=== PATIENT | female | born 1940 | race Caucasian/White ===

== ENCOUNTER 2021-12-23 20:49 | Observation (INO) | payer MEDICARE, MEDICAID, SELFPAY ==
[2021-12-23] VITALS (29 sets, daily range): BP systolic 123–161; BP diastolic 63–92; PULSE 75–163; RESP 13–27; TEMP 36.7; O2SAT 91–98
--- NOTE | 2021-12-23 21:08 | XRR_ITS ---
PROCEDURE INFORMATION: Exam: XR Chest Exam date and time: 12/23/2021 9:15 PM Age: 81 years old Clinical indication: Patient HX: Hypertensive with tachycardia on monitor. ; Additional info: Cp TECHNIQUE: Imaging protocol: Radiologic exam of the chest. Views: 1 view. COMPARISON: No relevant prior studies available. FINDINGS: Lungs: See Heart/Mediastinum finding. Pleural spaces: Unremarkable. No pleural effusion. No pneumothorax. Heart/Mediastinum: Mild cardiomegaly and pulmonary vascular congestion. Bones/joints: Unremarkable. XR/XR chest 1V portable [id number] IMPRESSION: Mild cardiomegaly and pulmonary vascular congestion.
--- NOTE | 2021-12-23 21:08 | ECG_ITS ---
[facility] Test Date: 2021-12-23 Pat Name: Rosie Bowles Department: Room: Gender: Female Community Relations Coordinator: : 1940 Requested By: Diana Montoya Order Number: [id number] Wanda MD: Charly Gallegos M.D. Measurements Intervals Raven Rate: 112 P: TN: QRS: -82 QRSD: 99 T: 32 QT: 322 QTc: 441 Interpretive Statements ATRIAL FIBRILLATION WITH RAPID VENTRICULAR RESPONSE INCOMPLETE RIGHT BUNDLE BRANCH BLOCK [90+ ms QRS DURATION, TERMINAL R IN V1/V2, 40+ ms S IN I/aVL/V4/V5/V6] LEFT ANTERIOR FASCICULAR BLOCK [QRS AXIS <= -45, QR IN I, RS IN II] ANTEROSEPTAL MYOCARDIAL INFARCTION , OF INDETERMINATE AGE [40+ ms Q WAVE IN V1-V4] No previous ECG available for comparison Electronically Signed On 12-24-2021 21:41:56 CDT by Charly Gallegos M.D. [id number]
--- NOTE | 2021-12-23 21:12 | ED_ITS ---
HPI - Arrhythmia/Palpitations General: Chief Complaint: Arrhythmia/Palpitations Stated Complaint: BP issues Time Seen by Provider: 12/23/21 21:07 Source: patient Mode of arrival: ambulatory Limitations: no limitations History of Present Illness: 81-year-old female who states that she does take her blood pressure and its been running high she states she is also had some slight palpitations she denies any chest pain denies any shortness of breath. Patient here is in A. fib with RVR with heart rate into the 150s she denies any history of A. fib does not take any medicine denies any worsening proving factors. Associated symptoms: Deny nausea or vomiting Review of Systems Const: Denies: fever(s), chills, body aches or change in appetite Eyes: Denies: blurry vision or eye discomfort ENMT: Denies: throat pain or dental pain Card: Reports: palpitations Resp: Denies: dyspnea GI: Denies: abdominal pain, nausea, vomiting or diarrhea : Denies: dysuria Musc: Denies: neck pain or back pain Skin/Breast: Denies: rash Neuro: Denies: headache(s) Psych: Denies: depression Jose Maria/Lymph: Denies: easy bruising All/Imm: Denies: urticaria PFSH ED PFSH: Medical History (Updated 12/23/21 @ 22:09 by Diana Montoya MD) No pertinent past medical history Social History (Updated 12/23/21 @ 21:13 by Diana Montoya MD) Substance/Drug Use: never Physical Exam Const: COMMON NORMALS: patient oriented x3 HENMT: COMMON NORMALS: normocephalic and atraumatic HEAD & SCALP: normocephalic and atraumatic Eye: COMMON NORMALS: Equal, round and reactive pupils present and EOMs intact bilaterally PUPIL: Yes Equal, round and reactive pupils present Neck/C-Spine: COMMON NORMALS: full ROM and supple Chest: COMMONS NORMALS: normal inspection of the chest and normal palpation of entire chest wall Resp: COMMON NORMALS: normal respiratory effort, No retractions, No use of accessory muscles and clear to auscultation bilaterally AUSCULTATION: clear to auscultation bilaterally Cardio: COMMON NORMALS: No murmurs present (Cardio) RATE: tachycardic RHYTHM: abnormal rhythm irregularly irregular GI: COMMON NORMALS: Normal to inspection, nondistended, normoactive bowel sounds present, Soft to palpation, non-tender and no masses PALPATION: Yes Soft to palpation Extremity: COMMON NORMALS: normal to inspection and full ROM Neuro: COMMON NORMALS: patient oriented x3, moves all extremities and no focal motor deficits Psych: COMMON NORMALS: mental status grossly normal, Normal thought process present and cooperative THOUGHT PROCESS: Normal thought process present Skin: COMMON NORMALS: no rashes or lesions noted and no wounds GENERAL SKIN EXAM: no rashes or lesions noted Course Vital Signs: Vital signs: Vital Signs Temperature 98.1 F 12/23/21 20:54 Pulse Rate 83 12/23/21 22:16 Respiratory Rate 19 H 12/23/21 22:16 Blood Pressure 159/70 12/23/21 22:16 Pulse Oximetry 95 12/23/21 22:16 Oxygen Delivery Me thod 12/23/21 20:54 MDM - Arrhythmia/Palpitations Medical Decision Making Patient presents here with A. fib with RVR heart rate here is much improved on a Cardizem drip currently in the 80s she has no history of A. fib blood work here is normal will admit at this time I spoke to hospitalist. Lab Data : 12/23/21 21:34 12/23/21 21:34 Radiology Impressions Chest X-Ray 12/23/21 21:08 IMPRESSION: Mild cardiomegaly and pulmonary vascular congestion. Laboratory Results WBC 12.1 10^3/uL (4.0-10.0) H 12/23/21 21:34 RBC 5.11 10^6/uL (4.1-5.3) 12/23/21 21:34 Hgb 14.1 g/dL (11.5-15.3) 12/23/21 21:34 Hct 43.0 % (37.0-47.0) 12/23/21 21:34 MCV 84.1 fl (81-99) 12/23/21 21:34 MCH 27.6 pg (28.0-34.0) L 12/23/21 21:34 MCHC 32.8 g/dL (30.0-36.0) 12/23/21 21:34 RDW 13.3 % (12.1-15.1) 12/23/21 21:34 Plt Count 183 10^3/cmm (130-400) 12/23/21 21:34 MPV 11.0 fL (7.4-10.4) H 12/23/21 21:34 Neut % (Auto) 65.1 % 12/23/21 21:34 Lymph % (Auto) 22.3 % 12/23/21 21:34 Dickson % (Auto) 8.5 % 12/23/21 21:34 Eos % (Auto) 2.9 % 12/23/21 21:34 Baso % (Auto) 0.7 % 12/23/21 21:34 Neut # (Auto) 7.90 10^3/uL (1.8-7.7) H 12/23/21 21:34 Lymph # (Auto) 2.7 10^3/uL (0.8-4.8) 12/23/21 21:34 Dickson # (Auto) 1.0 10^3/uL (0.2-0.9) H 12/23/21 21:34 Eos # (Auto) 0.4 10^3/uL (0.0-0.8) 12/23/21 21:34 Baso # (Auto) 0.1 10^3/uL (0.0-0.1) 12/23/21 21:34 Nucleated RBC % (auto) 0 % 12/23/21 21:34 Nucleated RBCs # 0.0 /100WBC 12/23/21 21:34 PT 14.10 SECONDS (12.1-14.9) 12/23/21 21:34 INR 1.06 (0.8-1.2) 12/23/21 21:34 Sodium 135 mmol/L (136-145) L 12/23/21 21:34 Potassium 4.3 mmol/L (3.5-5.1) 12/23/21 21:34 Chloride 99 mmol/L (98-107) 12/23/21 21:34 Carbon Dioxide 23 mmol/L (22-29) 12/23/21 21:34 Anion Gap 17.3 (5-19) 12/23/21 21:34 BUN 18 mg/dL (8-23) 12/23/21 21:34 Creatinine 0.8 mg/dL (0.5-0.9) 12/23/21 21:34 GFR Calculation Not Reportable 12/23/21 21:34 Glucose 184 mg/dL (65-115) H 12/23/21 21:34 Calculated Osmolality 287 mOsm/kg (285-295) 12/23/21 21:34 Calcium 9.5 mg/dL (8.5-10.5) 12/23/21 21:34 Total Bilirubin 0.5 mg/dL (0.15-1.2) 12/23/21 21:34 AST 21 U/L (0-32) 12/23/21 21:34 ALT 17 U/L (0-33) 12/23/21 21:34 Alkaline Phosphatase 64 U/L (35-105) 12/23/21 21:34 Troponin T Baseline 23 ng/L (0-10) H 12/23/21 21:34 Total Protein 7.3 g/dL (6.6-8.7) 12/23/21 21:34 Albumin 4.5 g/dL (3.5-5.2) 12/23/21 21:34 Globulin 2.8 g/dL (1.3-4.6) 12/23/21 21:34 EKG Data EKG 1: I personally reviewed and interpreted this EKG as follows: EKG interpretation date: 12/23/21 EKG interpretation time: 20:58 Interpretation: afib rvr hr [address] or t wave anormalities qrs 86 qtc 359 Other EKG comments: Chest X-Ray 12/23/21 21:08 IMPRESSION: Mild cardiomegaly and pulmonary vascular congestion. Critical Care Time Critical Care Time: Critical Care Time: Yes Total Critical Care Time: 40 Attestation: The high probability of a clinically significant, sudden or life threatening deterioration of the patient's cv system(s) required my full and direct attention, intervention and personal management. The critical care time is as shown. This time is in addition to time spent performing any reported procedures but includes the following: [x] Data and vital sign review and interpretation [x] Patient assessment, examination and intervention [x] Documentation [x] Medication orders and management Discharge Plan Discharge Patient Disposition: Admitted As Inpatient Clinical Impression: Atrial fibrillation with RVR Coding Level of Care Code ED Insurance Follow Up Representative for Chg Fwd Exam Comprehensive
[2021-12-23] MEDS: dilTIAZem 5 mg/mL SDV 5 mL 15 MG IV (21:36)
[2021-12-23 21:40] LABS: Basophils # 0.1 10^3/uL (0.0-0.1); Basophils % 0.7 %; Eosinophils # 0.4 10^3/uL (0.0-0.8); Eosinophils % 2.9 %; Hemoglobin 14.1 g/dL (11.5-15.3); Lymphocytes # 2.7 10^3/uL (0.8-4.8); Lymphocytes % 22.3 %; Mean Corpuscular HGB Conc 32.8 g/dL (30.0-36.0); Mean Corpuscular Hemoglobin 27.6 pg (28.0-34.0); Mean Corpuscular Volume 84.1 fl (81-99); Monocytes % 8.5 %; Neutrophils % 65.1 %; Nucleated Red Blood Cells % 0 %; Platelet Count 183 10^3/cmm (130-400); Red Blood Count 5.11 10^6/uL (4.1-5.3); Red Cell Distribution Width 13.3 % (12.1-15.1); White Blood Count 12.1 10^3/uL (4.0-10.0)
[2021-12-23 21:56] LABS: INR 1.06 (0.8-1.2)
--- NOTE | 2021-12-23 21:58 | ECG_ITS ---
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 Measurements Intervals [place] Rate: 83 P: AR: QRS: -73 QRSD: 109 T: 28 QT: 398 QTc: 470 Interpretive Statements ATRIAL FIBRILLATION INCOMPLETE RIGHT BUNDLE BRANCH BLOCK [90+ ms QRS DURATION, TERMINAL R IN V1/V2, 40+ ms S IN I/aVL/V4/V5/V6] LEFT ANTERIOR FASCICULAR BLOCK [QRS AXIS <= -45, QR IN I, RS IN II] POSSIBLE ANTERIOR MYOCARDIAL INFARCTION , PROBABLY OLD [30 ms Q WAVE IN V3/V4, OR R < 0.2 mV IN V4] Compared to ECG 12/23/2021 21:28:28 No significant changes Electronically Signed On 12-24-2021 21:52:23 CDT by Charly Gallegos M.D. [id number]
[2021-12-23 22:04] LABS: Troponin(5th) Baseline 23 ng/L (0-10)
[2021-12-23 22:07] LABS: Alanine Aminotransferase 17 U/L (0-33); Albumin Level 4.5 g/dL (3.5-5.2); Alkaline Phosphatase 64 U/L (35-105); Anion Gap 17.3 (5-19); Aspartate Amino Transferase 21 U/L (0-32); Blood Urea Nitrogen 18 mg/dL (8-23); Calcium 9.5 mg/dL (8.5-10.5); Carbon Dioxide 23 mmol/L (22-29); Chloride 99 mmol/L (98-107); Globulin 2.8 g/dL (1.3-4.6); Glucose 184 mg/dL (65-115); Osmolality Calculated 287 mOsm/kg (285-295); Potassium 4.3 mmol/L (3.5-5.1); Sodium 135 mmol/L (136-145); Total Bilirubin 0.5 mg/dL (0.15-1.2); Total Protein 7.3 g/dL (6.6-8.7)
--- NOTE | 2021-12-23 23:31 | USCV_ITS ---
Rosie Bowles Age: 81 Gender: F : 1940 Exam Date: 12/23/2021 23:55 Ordering Phys: Edda Antonio MD Technologist: UMBERTO [place] [facility] [place]ication: first ever episode of atrial fibrillation. No history of cardiac intervention per patient. BP: 159 / 70 HR: 73 Rhythm: Atrial fibrillation Technical Quality: Adequate MEASUREMENTS (Male / Female) Normal Values 2D ECHO LV Diastolic Diameter PLAX 3.3 cm 4.2 - 5.9 / 3.9 - 5.3 cm LV Systolic Diameter PLAX 2.2 cm IVS Diastolic Thickness 1.5 cm 0.6 - 1.0 / 0.6 - 0.9 cm IVS Systolic Thickness 1.7 cm LVPW Diastolic Thickness 1.5 cm 0.6 - 1.0 / 0.6 - 0.9 cm LVPW Systolic Thickness 2.0 cm LVOT Diameter 1.9 cm LV Ejection Fraction 2D Teich 64.8 % LV Ejection Fraction MOD 2C 62.6 % LV Ejection Fraction 2C AL 65.9 % LA Diameter 4.7 cm LA Width 4.8 cm LA Height 6.1 cm RA Width 4.2 cm RA Height 5.6 cm Aorta at Sinotubular Diameter 2.9 cm IVC Diameter 1.6 cm M-MODE Aortic Annulus Diameter 3.0 cm LA Ao Ratio MM 1.6 MV E Point Septal Separation 0.4 cm DOPPLER AV Peak Velocity 254.0 cm/s LVOT Peak Velocity 63.0 cm/s AV Area Cont Eq vti 0.8 cm squared AV Area Cont Eq pk 0.7 cm squared MV Peak Velocity 160.0 cm/s MV Area PHT 2.9 cm squared MV E' Velocity 81.0 cm/s Mitral E to MV E' Ratio 12.4 Mitral E to LV E' Lateral Ratio 15.0 Mitral E to LV E' Septal Ratio 10.6 TR Peak Velocity 249.5 cm/s TR Peak Gradient 24.9 mmHg TV Peak E Velocity 51.0 cm/s Right Atrial Pressure 10.0 mmHg Pulmonary Artery Systolic Pressu 34.9 mmHg PV Peak Velocity 89.0 cm/s FINDINGS Left Ventricle Normal left ventricular size and systolic function, EF 64 %. Mild left ventricular hypertrophy. No regional wall motion abnormalities. Grade III/IV diastolic dysfunction (restrictive filling pattern), severely elevated filling pressures. Right Ventricle The right ventricle is normal in size and function. Right Atrium Mildly increased right atrial size. Left Atrium Moderately increased left atrial size. Mitral Valve Moderate mitral annular calcification. Moderate mitral valve regurgitation. Aortic Valve Moderate aortic valve calcification. Trace aortic valve regurgitation. Severe low gradient aortic valve stenosis with a peak velocity of 2.54 m/s. The peak gradient was 26 mmHg with a mean gradient of 14 mmHg. The valve area was calculated to be 0.7 cm squared with an index of 0.39 Tricuspid Valve Mild tricuspid valve regurgitation. Pulmonic Valve Trace pulmonary valve regurgitation. Pericardium Normal pericardium without effusion. Aorta Normal ascending aorta dimension. IVC Normal inferior vena cava. CONCLUSIONS Normal left ventricular size and systolic function, EF 64 %. Mild left ventricular hypertrophy. No regional wall motion abnormalities. Grade III/IV diastolic dysfunction (restrictive filling pattern), severely elevated filling pressures. Severe low gradient aortic valve stenosis with a peak velocity of 2.54 m/s. The peak gradient was 26 mmHg with a mean gradient of 14 mmHg. The valve area was calculated to be 0.7 cm squared with an index of 0.39. Biatrial enlargement L>R. Moderate mitral annular calcification with a moderate mitral regurgitation Mild tricuspid valve regurgitation. Estimated pulmonary artery peak systolic pressure was 35 mmHg There is no pericardial effusion. There are no intracardiac masses. No similar previous studies are available for comparison Dr Charly Gallegos MD [facility] (Electronically Signed) Final Date: 24 December 2021 13:55 S
[2021-12-24] VITALS (49 sets, daily range): BP systolic 82–183; BP diastolic 60–117; PULSE 46–89; RESP 12–24; TEMP 36.6–36.7; O2SAT 92–97; BMI 35.5
[2021-12-24 00:06] LABS: Troponin 5 2HR 19.34 ng/L (0-10)
[2021-12-24 00:11] LABS: Troponin 5 2HR Delta -3.66 ABS# (0-10)
--- NOTE | 2021-12-24 00:31 | P.HP_ITS ---
Providers/Chief Complaint Admitting Physician: Edda Antonio MD Primary Care Provider: Ashish Kaur MD Chief Complaint: BP issues History of Present Illness Rosie Bowles is a 81 year old female without known medical comorbidities who presented to the emergency room last night with chief complaints of palpitations. She denied any complains of chest pain dyspnea. She is not quite sure what triggered the palpitations, states that she was just going to bed when this started. Denies any dizziness or loss of consciousness. Upon presentation to the ER she was found to have A. fib with RVR with heart rate in the 150s. She denies any past history of atrial fibrillation. States that her heart rate usually runs around 75 bpm. She states that she has elevated blood pressure on occasions, up to 1 50-1 60 systolic, however does not do very well with medications and therefore avoids taking any. Her blood pressure upon arrival here was 178/94. She received 15 mg IV push of Cardizem and was started on Cardizem infusion in the ER. Review of systems negative for any recent fever chills URI symptoms, cough, abdominal pain nausea or vomiting. She otherwise appears to be in her usual state of health. Review of Systems 2 General: Reports: 10 or more systems reviewed and unremarkable except in HPI and below Const: Denies: fever(s), chills or body aches Eyes: Denies: change in vision, blurry vision or photophobia ENMT: Reports: hoarseness; Denies: throat pain, enlarged tonsils, odynophagia or nasal congestion Card: Denies: chest pain, palpitations, irregular heart rhythm, edema, swelling of feet/ankles, lightheadedness, pre-syncope, dyspnea on exertion or orthopnea Resp: Denies: dyspnea, productive cough, non-productive cough, wheezing, stridor, pain on inspiration, change in phlegm color, hemoptysis or chest congestion GI: Denies: abdominal pain, nausea, vomiting, hematemesis, coffee ground emesis, dysphagia, heartburn, diarrhea, constipation, GI cramping, change in stool character, hematochezia or melena : Denies: flank pain, difficulty voiding, dysuria, urinary frequency, urinary urgency, urinary hesitancy or hematuria Musc: Denies: neck pain, back pain, extremity pain, joint swelling, joint warmth or deformity Neuro: Denies: headache(s), numbness in extremities, weakness in extremities, sensory changes, difficulty walking, frequent falls, dizziness, vertigo, behavioral changes, Slurred speech present or seizure-like activity Psych: Denies: anxiety, depression, suicidal ideation or homicidal ideation Endo: Denies: polyuria, polydipsia, tired all the time, cold intolerance or hot flashes Jose Maria/Lymph: Denies: easy bruising or easy bleeding Medications/Allergies Allergies Allergy/AdvReac Type Severity Reaction Status Date / Time Sulfa (Sulfonamide Allergy ALGY-Difficulty Verified 12/24/21 02:03 Antibiotics) Breathing PFSH Acute PFSH: Medical History No pertinent past medical history Social History Substance/Drug Use: never Vitals/I&O/Wt Last Vital Signs Temp 98.1 F 12/23/21 20:54 Pulse 83 12/23/21 22:16 Resp 19 H 12/23/21 22:16 BP 159/70 12/23/21 22:16 Pulse Ox 95 12/23/21 22:16 O2 Del Method 12/23/21 20:54 Weight last 48 hrs Weight 90.718 kg Physical Exam Narrative: General: No acute distress, AO x3 HEENT: PERRLA, pupils bilaterally equal and reactive, pallors not present Chest: Normal vesicular breath sounds, no added sounds, equal good air entry bilaterally CVS: S1-S2 regular, no murmurs, no tachycardia, no gallops, no rubs Abdomen: Soft, nontender, no organomegaly, bowel sounds present Neuro: No focal deficits, no facial deformity, AO x3, power 5/5 in all limbs Data : 12/24/21 03:40 12/24/21 03:40 Other Labs: Radiology Impressions Chest X-Ray 12/23/21 21:08 IMPRESSION: Mild cardiomegaly and pulmonary vascular congestion. Laboratory Results WBC 11.2 10^3/uL (4.0-10.0) H 12/24/21 03:40 RBC 4.94 10^6/uL (4.1-5.3) 12/24/21 03:40 Hgb 13.6 g/dL (11.5-15.3) 12/24/21 03:40 Hct 41.9 % (37.0-47.0) 12/24/21 03:40 MCV 84.8 fl (81-99) 12/24/21 03:40 MCH 27.5 pg (28.0-34.0) L 12/24/21 03:40 MCHC 32.5 g/dL (30.0-36.0) 12/24/21 03:40 RDW 13.5 % (12.1-15.1) 12/24/21 03:40 Plt Count 184 10^3/cmm (130-400) 12/24/21 03:40 MPV 11.9 fL (7.4-10.4) H 12/24/21 03:40 Neut % (Auto) 59.7 % 12/24/21 03:40 Lymph % (Auto) 28.2 % 12/24/21 03:40 Borden % (Auto) 8.4 % 12/24/21 03:40 Eos % (Auto) 2.8 % 12/24/21 03:40 Baso % (Auto) 0.5 % 12/24/21 03:40 Neut # (Auto) 6.67 10^3/uL (1.8-7.7) 12/24/21 03:40 Lymph # (Auto) 3.2 10^3/uL (0.8-4.8) 12/24/21 03:40 Borden # (Auto) 0.9 10^3/uL (0.2-0.9) 12/24/21 03:40 Eos # (Auto) 0.3 10^3/uL (0.0-0.8) 12/24/21 03:40 Baso # (Auto) 0.1 10^3/uL (0.0-0.1) 12/24/21 03:40 Nucleated RBC % (auto) 0 % 12/24/21 03:40 Nucleated RBCs # 0.0 /100WBC 12/24/21 03:40 PT 14.10 SECONDS (12.1-14.9) 12/23/21 21:34 INR 1.06 (0.8-1.2) 12/23/21 21:34 Sodium 137 mmol/L (136-145) 12/24/21 03:40 Potassium 4.1 mmol/L (3.5-5.1) 12/24/21 03:40 Chloride 101 mmol/L (98-107) 12/24/21 03:40 Carbon Dioxide 23 mmol/L (22-29) 12/24/21 03:40 Anion Gap 17.1 (5-19) 12/24/21 03:40 BUN 16 mg/dL (8-23) 12/24/21 03:40 Creatinine 0.8 mg/dL (0.5-0.9) 12/24/21 03:40 GFR Calculation Not Reportable 12/24/21 03:40 Glucose 137 mg/dL (65-115) H 12/24/21 03:40 Calculated Osmolality 287 mOsm/kg (285-295) 12/24/21 03:40 Calcium 9.3 mg/dL (8.5-10.5) 12/24/21 03:40 Total Bilirubin 0.6 mg/dL (0.15-1.2) 12/24/21 03:40 AST 20 U/L (0-32) 12/24/21 03:40 ALT 15 U/L (0-33) 12/24/21 03:40 Alkaline Phosphatase 54 U/L (35-105) 12/24/21 03:40 Troponin T Baseline 23 ng/L (0-10) H 12/23/21 21:34 Troponin T 120 Minute 19.34 ng/L (0-10) H 12/23/21 23:34 Delta Troponin T -3.66 ABS# (0-10) L 12/23/21 23:34 Troponin T Hi Sens 6Hr 19.70 ng/L (0-10) H 12/24/21 03:40 Troponin T Hi Sens 6Hr Delta -3.30 ng/L (0-12) L 12/24/21 03:40 Total Protein 7.0 g/dL (6.6-8.7) 12/24/21 03:40 Albumin 4.2 g/dL (3.5-5.2) 12/24/21 03:40 Globulin 2.8 g/dL (1.3-4.6) 12/24/21 03:40 A&P Assessment and plan (1) Atrial fibrillation with RVR: Patient presenting today with new onset A. fib with RVR. Chief complaints with that of palpitations, denies any chest pain dyspnea loss of consciousness or syncope. She was received 15 mg of IV push of Cardizem and was started on IV infusion. Thereafter is being admitted to CSU for further observation. Her CHADS2 Vasc2 is at 3, however she is not currently interested in starting any new medications including anticoagulation. Also noted to have elevated blood pressure 178/94 upon arrival, states that usu ally her blood pressure at home runs between 1 40-1 50 systolic. Troponin series with mildly elevated troponins at baseline 23, 2-hour trending down at 19, negative delta of 3 at 2 hours. Will check TSH Check echocardiogram Attestations Medical Necessity Statement*: Admit to CSU, anticipate less than 2 midnight admission for evaluation and management of new onset A. fib. Coding Level of Care Code Acute [employer] Executive for Cristhian Pressley Diagnoses Atrial fibrillation with RVR I48.91
[2021-12-24] MEDS: dilTIAZem 30 mg Tablet PO (02:14)
--- NOTE | 2021-12-24 02:21 | PC.NURSE ---
Communication w/ Dr. Antonio, high blood pressure 180's/10's. Provider to put in new orders.
--- NOTE | 2021-12-24 03:16 | ECG_ITS ---
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 Measurements Intervals [place] Rate: 68 P: PA: QRS: -61 QRSD: 105 T: -26 QT: 417 QTc: 446 Interpretive Statements ATRIAL FIBRILLATION LOW QRS VOLTAGE IN PRECORDIAL LEADS [QRS DEFLECTION < 1.0 mV IN CHEST LEADS] LEFT ANTERIOR FASCICULAR BLOCK [QRS AXIS <= -45, QR IN I, RS IN II] POSSIBLE ANTERIOR MYOCARDIAL INFARCTION , PROBABLY OLD [30 ms Q WAVE IN V3/V4, OR R < 0.2 mV IN V4] Compared to ECG 12/23/2021 21:58:33 Low QRS voltage now present Incomplete right bundle-branch block no longer present Myocardial infarct finding still present Electronically Signed On 12-24-2021 21:52:50 CDT by Charly Gallegos M.D. [id number]
--- NOTE | 2021-12-24 04:30 | PC.NURSE ---
HR A.fib 57, contacted Dr. Antonio, discontinue nontitratable Cardizem 10 mg/hr and change to titratable Cardizem drip, Cardizem turned off.
[2021-12-24 05:15] LABS: Basophils # 0.1 10^3/uL (0.0-0.1); Basophils % 0.5 %; Eosinophils # 0.3 10^3/uL (0.0-0.8); Eosinophils % 2.8 %; Hematocrit 41.9 % (37.0-47.0); Hemoglobin 13.6 g/dL (11.5-15.3); Lymphocytes # 3.2 10^3/uL (0.8-4.8); Lymphocytes % 28.2 %; Mean Corpuscular HGB Conc 32.5 g/dL (30.0-36.0); Mean Corpuscular Hemoglobin 27.5 pg (28.0-34.0); Mean Corpuscular Volume 84.8 fl (81-99); Mean Platelet Volume 11.9 fL (7.4-10.4); Monocytes # 0.9 10^3/uL (0.2-0.9); Monocytes % 8.4 %; Neutrophils # 6.67 10^3/uL (1.8-7.7); Neutrophils % 59.7 %; Nucleated Red Blood Cells % 0 %; Platelet Count 184 10^3/cmm (130-400); Red Blood Count 4.94 10^6/uL (4.1-5.3); Red Cell Distribution Width 13.5 % (12.1-15.1); White Blood Count 11.2 10^3/uL (4.0-10.0)
[2021-12-24 05:31] LABS: Alanine Aminotransferase 15 U/L (0-33); Albumin Level 4.2 g/dL (3.5-5.2); Alkaline Phosphatase 54 U/L (35-105); Anion Gap 17.1 (5-19); Aspartate Amino Transferase 20 U/L (0-32); Blood Urea Nitrogen 16 mg/dL (8-23); Calcium 9.3 mg/dL (8.5-10.5); Carbon Dioxide 23 mmol/L (22-29); Chloride 101 mmol/L (98-107); Globulin 2.8 g/dL (1.3-4.6); Glucose 137 mg/dL (65-115); Osmolality Calculated 287 mOsm/kg (285-295); Potassium 4.1 mmol/L (3.5-5.1); Sodium 137 mmol/L (136-145); Total Bilirubin 0.6 mg/dL (0.15-1.2)
--- NOTE | 2021-12-24 05:53 | PC.NURSE ---
PEARL Arias held, HR 56 A.fib, Dr. Marisela cisneros.
--- NOTE | 2021-12-24 06:29 | ECG_ITS ---
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 Measurements Intervals [place] Rate: 49 P: DC: QRS: -67 QRSD: 106 T: -60 QT: 479 QTc: 434 Interpretive Statements ATRIAL FLUTTER/TACHYCARDIA WITH SLOW VENTRICULAR RESPONSE LOW QRS VOLTAGE IN PRECORDIAL LEADS [QRS DEFLECTION < 1.0 mV IN CHEST LEADS] INCOMPLETE RIGHT BUNDLE BRANCH BLOCK [90+ ms QRS DURATION, TERMINAL R IN V1/V2, 40+ ms S IN I/aVL/V4/V5/V6] LEFT ANTERIOR FASCICULAR BLOCK [QRS AXIS <= -45, QR IN I, RS IN II] POSSIBLE ANTERIOR MYOCARDIAL INFARCTION , OF INDETERMINATE AGE [30 ms Q WAVE IN V3/V4, OR R < 0.2 mV IN V4] Compared to ECG 12/24/2021 03:16:46 Incomplete right bundle-branch block now present Atrial fibrillation no longer present Myocardial infarct finding still present Electronically Signed On 12-24-2021 21:53:05 CDT by Charly Gallegos M.D. [id number] f
--- NOTE | 2021-12-24 06:36 | PC.NURSE ---
HR 49, obtained EKG per Dr. Antonio.
[2021-12-24 07:40] LABS: Thyroid Stimulating Hormone 2.37 uIU/mL (0.27-4.20)
--- NOTE | 2021-12-24 08:34 | PC.PHAR ---
pt states she takes no rx medications-pt states she doesnt go to the dr and hasnt been prescribed medications pt states just takes otc meds
--- NOTE | 2021-12-24 08:48 | PC.NURSE ---
Dr. Chilel at bedside, observed HTN and afib, HCP to put in med orders, goal to D/C tomorrow
--- NOTE | 2021-12-24 09:36 | PC.CHAP ---
Pastoral Care Encounter/Spiritual Assessment Type of Contact [] Declined vat cleaner visit [] Patient/Family/Request visit [] Outpatient visit [] Follow-up visit [] Physician referral [] Code/Alert [x] Routine visit [] Staff referral [] Actively dying [] Patient sleeping [] Family support [] [] Out of room [] Palliative care [] [] Receiving care in room [] Pre-surgical visit [] Trauma [] Long length of stay [x] ICU visit [] Other: delightful lady and family... Relational/Emotional Strength [] Patient feels connected with others/family/visitors/staff [] Distress [] Loneliness/isolation [] Abandonment Spirituality of Patient [] Person of Nanette [] Attends Yazidism of their Nanette [] Believes in Prayer [] Reads Bible or Bahai materials [] There are Spiritual issues to be addressed Postal Mail Carrier Interventions [x] Prayer [] Active listening [] Non-anxious presence [] Spiritual/emotional support [] Crisis/trauma care [] Spiritual counseling [] Bereavement support [] Provided bereavement packet [] Provided Bible/devotional materials [] Provided toy/stuffed animal, coloring book to patient or family member [] Provided Communion [] Anointing/[place] [] Salvation [x] Completed spiritual assessment [] Other: Impact on Illness or Injury [] Angry [] Fearful [] Anxious [] Often cries [] Exhaustion [] Unable to work [] Unable to attend yarsani [] Unable to walk/stand [] Unable to read [] Unable to drive [] Unable to eat/drink [] Unable to sleep [] Unable to be with family [] Patient intubated [] Other: Summary Time spent with patient
--- NOTE | 2021-12-24 10:27 | PM.MISC ---
Miscellaneous Note Note: Heart rate dipped down to low 50s with Cardizem At the time of my evaluation heart rate was in 70s blood pressure was high I asked nurse to take blood pressure in both arms and document Patient stated that he does not take any medications at home, she lives alone and she was asking to go home EKG does not show any signs of malignant arrhythmia, significant high degree block other than incomplete right bundle branch Awake and alert Euvolemic Currently on room air Very pleasant cooperative No active chest pain S1, S2 rate able Atrial flutter rhythm on telemetry Abdomen soft Assessment and plan New onset atrial flutter [id number] is high she would require Eliquis at the time of discharge No recurrent falls at home She lives alone Side effects were explained I will put her on low-dose metoprolol and watch her heart rate and blood pressure In case of hypertension she would require lisinopril and chlorthalidone Full code Cardiac diet DVT prophylaxis covered with Eliquis
[2021-12-24] MEDS: lisinopril 20 mg Tablet PO (14:12)
[2021-12-24] MEDS: chlorthalidone 25 mg Tablet 12.5 MG PO (17:28)
[2021-12-24] MEDS: metoprolol tartrate 25 mg Tablet 12.5 MG PO (20:07)
[2021-12-24] MEDS: apixaban 5 mg Tablet PO (20:07)
[2021-12-25] VITALS (11 sets, daily range): BP systolic 99–153; BP diastolic 64–99; PULSE 52–103; RESP 15–19; TEMP 36.5–36.7; O2SAT 92–96
[2021-12-25 04:29] LABS: Anion Gap 14.3 (5-19); Blood Urea Nitrogen 18 mg/dL (8-23); Calcium 9.6 mg/dL (8.5-10.5); Carbon Dioxide 24 mmol/L (22-29); Chloride 101 mmol/L (98-107); Glucose 118 mg/dL (65-115); Magnesium 2.1 mg/dL (1.7-2.3); Osmolality Calculated 283 mOsm/kg (285-295); Potassium 4.3 mmol/L (3.5-5.1); Sodium 135 mmol/L (136-145)
--- NOTE | 2021-12-25 08:03 | P.DS_ITS ---
Discharge Providers Date of Admission: 12/23/21 22:30 Date of Discharge: December 25, 2021 Attending Provider at Admission: Edda Antonio MD Attending Provider at Discharge: Erika Chilel MD Primary Care Provider: Ashish Kaur MD Diagnoses at Discharge Discharge Diagnosis (1) Atrial fibrillation with RVR: Status: Acute Reason for Visit Reason for Visit: BP issues Hospital Course Hospital Course 81-year-old female who was admitted to the hospital for management of new onset A. fib RVR her heart rate dipped down to low 50s with use of Cardizem her [id number] is 3 she was put on anticoagulating agent at the time of discharge Eliquis 5 mg twice a day, she was not hypoxic at all during her hospitalization, she was put on low-dose metoprolol once her heart rate was staying upper 90s, no recurrence of bradycardia slow ventricular response noted after initial episode, no signs of significant second-degree or third-degree block. Patient remained hypertensive I have added lisinopril and chlorthalidone for her hypertension. Patient was not taking any medication at home. I have asked her to maintain a blood pressure log and follow-up with her PCP. She lives alone and is very motivated to return home. No signs of syncope or dizziness when she ambulated in her room. Physical Exam Narrative: Awake and alert Nonfocal neuro exam A. fib heart rate in 90s Blood pressure 150s/99 Pleasant and cooperative EOMI, PERRLA Abdomen soft Discharge Data Studies Completed and Pending Completed Studies During Hospitalization Category Date Time Status XR chest 1V portable [id number] Stat Exams 12/23/21 21:08 Completed CV. echo complete* [id number] Stat Ultrasound 12/23/21 23:31 Completed Radiology Impressions Chest X-Ray 12/23/21 21:08 IMPRESSION: Mild cardiomegaly and pulmonary vascular congestion. Laboratory Results WBC 11.2 10^3/uL (4.0-10.0) H 12/24/21 03:40 RBC 4.94 10^6/uL (4.1-5.3) 12/24/21 03:40 Hgb 13.6 g/dL (11.5-15.3) 12/24/21 03:40 Hct 41.9 % (37.0-47.0) 12/24/21 03:40 MCV 84.8 fl (81-99) 12/24/21 03:40 MCH 27.5 pg (28.0-34.0) L 12/24/21 03:40 MCHC 32.5 g/dL (30.0-36.0) 12/24/21 03:40 RDW 13.5 % (12.1-15.1) 12/24/21 03:40 Plt Count 184 10^3/cmm (130-400) 12/24/21 03:40 MPV 11.9 fL (7.4-10.4) H 12/24/21 03:40 Neut % (Auto) 59.7 % 12/24/21 03:40 Lymph % (Auto) 28.2 % 12/24/21 03:40 [place] % (Auto) 8.4 % 12/24/21 03:40 Eos % (Auto) 2.8 % 12/24/21 03:40 Baso % (Auto) 0.5 % 12/24/21 03:40 Neut # (Auto) 6.67 10^3/uL (1.8-7.7) 12/24/21 03:40 Lymph # (Auto) 3.2 10^3/uL (0.8-4.8) 12/24/21 03:40 [place] # (Auto) 0.9 10^3/uL (0.2-0.9) 12/24/21 03:40 Eos # (Auto) 0.3 10^3/uL (0.0-0.8) 12/24/21 03:40 Baso # (Auto) 0.1 10^3/uL (0.0-0.1) 12/24/21 03:40 Nucleated RBC % (auto) 0 % 12/24/21 03:40 Nucleated RBCs # 0.0 /100WBC 12/24/21 03:40 PT 14.10 SECONDS (12.1-14.9) 12/23/21 21:34 INR 1.06 (0.8-1.2) 12/23/21 21:34 Sodium 135 mmol/L (136-145) L 12/25/21 03:51 Potassium 4.3 mmol/L (3.5-5.1) 12/25/21 03:51 Chloride 101 mmol/L (98-107) 12/25/21 03:51 Carbon Dioxide 24 mmol/L (22-29) 12/25/21 03:51 Anion Gap 14.3 (5-19) 12/25/21 03:51 BUN 18 mg/dL (8-23) 12/25/21 03:51 Creatinine 0.8 mg/dL (0.5-0.9) 12/25/21 03:51 GFR Calculation Not Reportable 12/25/21 03:51 Glucose 118 mg/dL (65-115) H 12/25/21 03:51 Calculated Osmolality 283 mOsm/kg (285-295) L 12/25/21 03:51 Calcium 9.6 mg/dL (8.5-10.5) 12/25/21 03:51 Magnesium 2.1 mg/dL (1.7-2.3) 12/25/21 03:51 Total Bilirubin 0.6 mg/dL (0.15-1.2) 12/24/21 03:40 AST 20 U/L (0-32) 12/24/21 03:40 ALT 15 U/L (0-33) 12/24/21 03:40 Alkaline Phosphatase 54 U/L (35-105) 12/24/21 03:40 Troponin T Baseline 23 ng/L (0-10) H 12/23/21 21:34 Troponin T 120 Minute 19.34 ng/L (0-10) H 12/23/21 23:34 Delta Troponin T -3.66 ABS# (0-10) L 12/23/21 23:34 Troponin T Hi Sens 6Hr 19.70 ng/L (0-10) H 12/24/21 03:40 Troponin T Hi Sens 6Hr Delta -3.30 ng/L (0-12) L 12/24/21 03:40 Total Protein 7.0 g/dL (6.6-8.7) 12/24/21 03:40 Albumin 4.2 g/dL (3.5-5.2) 12/24/21 03:40 Globulin 2.8 g/dL (1.3-4.6) 12/24/21 03:40 TSH 2.37 uIU/mL (0.27-4.20) 12/24/21 03:40 Vitals Last Vital Signs Temp 97.7 F 12/25/21 03:30 Pulse 69 11/02/22 06:00 Resp 16 12/25/21 04:00 BP 147/91 12/25/21 04:00 Pulse Ox 93 12/25/21 04:00 O2 Del Method 12/25/21 04:00 Discharge Plan Discharge Patient Disposition: Home Condition: Stable Prescriptions: New Eliquis 5 mg Tablet 5 mg PO BID@0900,2100 Qty: 120 3RF lisinopril 20 mg tablet 20 mg PO DAILY Qty: 60 2RF chlorthalidone 25 mg tablet 25 mg PO DAILY Qty: 60 2RF metoprolol tartrate 25 mg tablet 25 mg PO BID Qty: 60 2RF Discontinued naproxen sodium [Aleve] 220 mg Tablet 220 - 660 mg PO Q12H PRN (Reason: Pain) Discharge Orders: Discharge Order (Routine); Ordered 12/25/21 Ordered By: Erika Chilel Referrals: Ashish Kaur MD [Primary Care Provider] - 4-7 days Discharge Diet: Cardiac Discharge Activity: Increase activity as tolerated Patient Instructions: Metoprolol (By mouth), Lisinopril (By mouth), Apixaban (By mouth) (Eliquis), A-fib (Atrial Fibrillation) (DC), Heart Healthy Diet (DC), Opioid Safety, Pain Management, Stroke Stoplight Discharge Attestations Time Spent in Discharge Care*: less than 30 min Quality Metrics Clinical Quality Measures [ No reported AMI, CVA or VTE this stay] Coding Level of Care Code Acute Chg FW DC note Diagnoses Atrial fibrillation with RVR I48.91
[2021-12-25] MEDS: apixaban 5 mg Tablet PO (08:10)
[2021-12-25] MEDS: pantoprazole DR 40 mg Tablet PO (08:10)
[2021-12-25] MEDS: chlorthalidone 25 mg Tablet 12.5 MG PO (08:11)
[2021-12-25] MEDS: metoprolol tartrate 25 mg Tablet 12.5 MG PO (08:11)
[2021-12-25] MEDS: lisinopril 20 mg Tablet PO (09:04)
--- NOTE | 2021-12-25 10:37 | PC.CHAP ---
Pastoral Care Encounter/Spiritual Assessment Type of Contact [] Declined commercial credit reviewer visit [] Patient/Family/Request visit [] Outpatient visit [] Follow-up visit [] Physician referral [] Code/Alert [x] Routine visit [] Staff referral [] Actively dying [x] Patient sleeping [] Family support [] [] Out of room [] Palliative care [] [] Receiving care in room [] Pre-surgical visit [] Trauma [] Long length of stay [x] ICU visit [] Other: Relational/Emotional Strength [] Patient feels connected with others/family/visitors/staff [] Distress [] Loneliness/isolation [] Abandonment Spirituality of Patient [] Person of Nanette [] Attends Jainism of their [place] [] Believes in Prayer [] Reads Bible or Roman Catholic materials [] There are Spiritual issues to be addressed Actuarial Internship Interventions [x] Prayer [] Active listening [] Non-anxious presence [] Spiritual/emotional support [] Crisis/trauma care [] Spiritual counseling [] Bereavement support [] Provided bereavement packet [] Provided Bible/devotional materials [] Provided toy/stuffed animal, coloring book to patient or family member [] Provided Communion [] Anointing/[place] [] Salvation [x] Completed spiritual assessment [] Other: Impact on Illness or Injury [] Angry [] Fearful [] Anxious [] Often cries [] Exhaustion [] Unable to work [] Unable to attend judaism [] Unable to walk/stand [] Unable to read [] Unable to drive [] Unable to eat/drink [] Unable to sleep [] Unable to be with family [] Patient intubated [] Other: Summary Time spent with patient
--- NOTE | 2021-12-25 11:50 | PC.NURSE ---
All D/C instructions educated to patient and son at bedside, patient signed d/c form, out of facility at this time transported home by son
== END 2021-12-25 11:53 | disposition home or self-care (01) ==
LOC: ER 22:09 → ICU 12-24 01:09
PROVIDERS: Admitting Provider Student in an Organized Health Care Education/Training Program; Emergency Provider Emergency Medicine; PCP Family Medicine; Visit Provider Internal Medicine
DX: I48.91 Unspecified atrial fibrillation (principal); I45.10 Unspecified right bundle-branch block
CPT/HCPCS: 36415; 71045; 80048; 80053; 83735; 84443; 84484; 85025; 85610; 93005; 93306; 96365; 96366; 96375; 99291; G0378; J3490

== ENCOUNTER 2022-09-23 19:29 | Observation (INO) | payer MEDICARE, MEDICAID, SELFPAY ==
[2022-09-23] VITALS (8 sets, daily range): BP systolic 138–172; BP diastolic 74–97; PULSE 75–97; RESP 16–21; TEMP 36.9; O2SAT 92–96; BMI 34.5
[2022-09-23 20:31] LABS: Basophils # 0.1 10^3/uL (0.0-0.1); Eosinophils # 0.3 10^3/uL (0.0-0.8); Hematocrit 22.9 % (37.0-47.0); Hemoglobin 6.7 g/dL (11.5-15.3); Lymphocytes # 2.8 10^3/uL (0.8-4.8); Lymphocytes % 29.5 %; Mean Corpuscular HGB Conc 29.3 g/dL (30.0-36.0); Mean Corpuscular Hemoglobin 20.6 pg (28.0-34.0); Mean Corpuscular Volume 70.5 fl (81-99); Mean Platelet Volume 9.5 fL (7.4-10.4); Monocytes # 1.3 10^3/uL (0.2-0.9); Monocytes % 13.9 %; Neutrophils # 4.92 10^3/uL (1.8-7.7); Neutrophils % 52.1 %; Nucleated Red Blood Cells % 0.2 %; Platelet Count 353 10^3/cmm (130-400); Red Blood Count 3.25 10^6/uL (4.1-5.3); Red Cell Distribution Width 16.6 % (12.1-15.1); White Blood Count 9.4 10^3/uL (4.0-10.0)
[2022-09-23 20:43] LABS: INR 2.32 (0.8-1.2)
--- NOTE | 2022-09-23 20:51 | ED_ITS ---
HPI - GI Bleed General: Chief complaint: GI Bleed Stated complaint: Rectal Bleeding and A Fib Time Seen by Provider: 09/23/22 20:25 History of Present Illness: 82-year-old female presents to the emergency department chief complaint of having an episode of rectal bleeding prior to arrival patient is also endorsing some left-sided abdominal pain has been persistent over the last several weeks. Patient reports recent diagnosis of atrial fibrillation that she is currently taking Eliquis. Patient reports this 1 episode of a bloody stool while wiping patient reports generalized weakness and fatigue is also been ongoing for the last couple of weeks. The patient reports no other associated symptoms. Associated symptoms: Reports abdominal pain; Denies chills, fever(s), headache(s), malaise, nausea, rash or vomiting Review of Systems General: Reports: 10 or more systems reviewed and unremarkable except in HPI and below Const: Denies: fever(s), chills, fatigue or malaise Eyes: Denies: change in vision or blurry vision Card: Denies: chest pain or palpitations Resp: Denies: dyspnea or productive cough GI: Reports: abdominal pain and hematochezia; Denies: nausea or vomiting : Denies: flank pain Musc: Denies: extremity pain or extremity swelling Skin/Breast: Denies: rash or pruritus Neuro: Denies: headache(s) Psych: Denies: anxiety or depression [place]/Lymph: Denies: easy bleeding All/Imm: Denies: urticaria, throat swelling or facial swelling PFSH ED PFSH: Medical History Atrial fibrillation with RVR No pertinent past medical history Social History Substance/Drug Use: never Physical Exam Const: COMMON NORMALS: no acute distress, patient oriented x3 and healthy appearing HENMT: COMMON NORMALS: normocephalic and atraumatic HEAD & SCALP: normocephalic and atraumatic Eye: COMMON NORMALS: Equal, round and reactive pupils present and EOMs intact bilaterally PUPIL: Yes Equal, round and reactive pupils present Neck/C-Spine: COMMON NORMALS: full ROM, supple and no JVD Lymph: LYMPHATIC: no lymphadenopathy noted Chest: COMMONS NORMALS: normal inspection of the chest and normal palpation of entire chest wall Resp: COMMON NORMALS: normal respiratory effort, No retractions and clear to auscultation bilaterally EFFORT & INSPECTION: Yes able to speak in complete sentences and Yes symmetric chest movement AUSCULTATION: clear to auscultation bilaterally Cardio: COMMON NORMALS: no JVD, regular rate and regular rhythm RATE: regular rate RHYTHM: regular rhythm GI: COMMON NORMALS: Normal to inspection, nondistended, normoactive bowel sounds present and Soft to palpation; negative for non-tender (Moderate tenderness appreciated in left lateral abdomen) INSPECTION: Yes normal to inspection PALPATION: Yes Soft to palpation : COMMON NORMALS: Yes no CVA tenderness BLADDER/KIDNEY EXAM: Yes no CVA tenderness Back/Pelvis: COMMON NORMALS: no CVA tenderness Extremity: COMMON NORMALS: normal to inspection and full ROM Neuro: COMMON NORMALS: patient oriented x3, CN's II-XII intact bilaterally, moves all extremities and no focal motor deficits Psych: COMMON NORMALS: mental status grossly normal, Normal thought process present, cooperative and normal affect THOUGHT PROCESS: Normal thought process present Skin: COMMON NORMALS: no rashes or lesions noted GENERAL SKIN EXAM: no rashes or lesions noted Course Vital Signs: Vital signs: Vital Signs Temperature 98.4 F 09/23/22 19:45 Pulse Rate 97 09/23/22 19:45 Respiratory Rate 16 09/23/22 19:45 Blood Pressure 138/76 09/23/22 19:45 Pulse Oximetry 95 09/23/22 19:45 Oxygen Delivery Me thod Room Air 09/23/22 19:45 MDM - GI Bleed Medical Decision Making Due to the patient's symptoms and condition IV was established basic lab work and imaging will be obtained we will continue to follow patient's hemoglobin was found to be low at 6.7. We will be obtaining CT imaging abdomen pelvis with IV contrast to further rule out diverticular Disease. We will continue to follow anticipate need for admission. The patient's CT imaging revealed some divert iculosis as well as some enteritis no obvious diverticulitis patient's hemoglobin found to be at 6.7 discussed patient's case with the general surgery on-call which will be placed on for consultation as well as Dr. Flood hospitalist that is granted acceptance observation status in which patient will be started on some blood products. The patient remained in stable condition at this time. Patient and family were updated that are agreeable to admission/observation at this time. Lab Data 09/23/22 20:15 09/23/22 20:15 Radiology Impressions Chest X-Ray 09/23/22 21:19 IMPRESSION: 1. Right lower lobe atelectasis 2. Cardiomegaly. Abdomen/Pelvis CT 09/23/22 21:26 IMPRESSION: 1. Negative for contrast extravasation seen to indicate a source of rectal bleeding as in provided clinical indication. 2. Prominent fluid in the small bowel without dilation may reflect an enteritis. 3. Diverticulosis without diverticulitis 4. Cardiomegaly. 5. Moderate to large bilateral pleural effusions. 6. Bilateral dependent atelectasis versus infiltrate. 7. Cholelithiasis. 8. Mild anasarca. Laboratory Results WBC 9.4 10^3/uL (4.0-10.0) 09/23/22 20:15 RBC 3.25 10^6/uL (4.1-5.3) L 09/23/22 20:15 Hgb 6.7 g/dL (11.5-15.3) L 09/23/22 20:15 Hct 22.9 % (37.0-47.0) L 09/23/22 20:15 MCV 70.5 fl (81-99) L 09/23/22 20:15 MCH 20.6 pg (28.0-34.0) L 09/23/22 20:15 MCHC 29.3 g/dL (30.0-36.0) L 09/23/22 20:15 RDW 16.6 % (12.1-15.1) H 09/23/22 20:15 Plt Count 353 10^3/cmm (130-400) 09/23/22 20:15 MPV 9.5 fL (7.4-10.4) 09/23/22 20:15 Neut % (Auto) 52.1 % 09/23/22 20:15 Lymph % (Auto) 29.5 % 09/23/22 20:15 [place] % (Auto) 13.9 % 09/23/22 20:15 Eos % (Auto) 3.0 % 09/23/22 20:15 Baso % (Auto) 1.0 % 09/23/22 20:15 Neut # (Auto) 4.92 10^3/uL (1.8-7.7) 09/23/22 20:15 Lymph # (Auto) 2.8 10^3/uL (0.8-4.8) 09/23/22 20:15 [place] # (Auto) 1.3 10^3/uL (0.2-0.9) H 09/23/22 20:15 Eos # (Auto) 0.3 10^3/uL (0.0-0.8) 09/23/22 20:15 Baso # (Auto) 0.1 10^3/uL (0.0-0.1) 09/23/22 20:15 Nucleated RBC % (auto) 0.2 % 09/23/22 20:15 Nucleated RBCs # 0.0 /100WBC 09/23/22 20:15 PT 26.40 SECONDS (12.1-14.9) H 09/23/22 20:15 INR 2.32 (0.8-1.2) H 09/23/22 20:15 Sodium 136 mmol/L (136-145) 09/23/22 20:15 Potassium 4.3 mmol/L (3.5-5.1) 09/23/22 20:15 Chloride 102 mmol/L (98-107) 09/23/22 20:15 Carbon Dioxide 20 mmol/L (22-29) L 09/23/22 20:15 Anion Gap 18.3 (5-19) 09/23/22 20:15 BUN 17 mg/dL (8-23) 09/23/22 20:15 Creatinine 1.0 mg/dL (0.5-0.9) H 09/23/22 20:15 GFR Calculation Not Reportable 09/23/22 20:15 Glucose 164 mg/dL (65-115) H 09/23/22 20:15 Calculated Osmolality 287 mOsm/kg (285-295) 09/23/22 20:15 Calcium 9.0 mg/dL (8.5-10.5) 09/23/22 20:15 Total Bilirubin 0.5 mg/dL (0.15-1.2) 09/23/22 20:15 AST 19 U/L (0-32) 09/23/22 20:15 ALT < 5 U/L (0-33) 09/23/22 20:15 Alkaline Phosphatase 58 U/L (35-105) 09/23/22 20:15 Total Protein 7.0 g/dL (6.6-8.7) 09/23/22 20:15 Albumin 4.3 g/dL (3.5-5.2) 09/23/22 20:15 Globulin 2.7 g/dL (1.3-4.6) 09/23/22 20:15 Urine Color Light yellow (Yellow) 09/23/22 22:34 Urine Appearance Clear (CLEAR) 09/23/22 22:34 Urine pH 6.5 (5-7) 09/23/22 22:34 Ur Specific [place] 1.005 (1.005-1.030) 09/23/22 22:34 Urine Protein Neg (Negative) 09/23/22 22:34 Urine Glucose (UA) Norm (Normal) 09/23/22 22:34 Urine Ketones Negative (Negative) 09/23/22 22:34 Urine Blood Neg (Negative) 09/23/22 22:34 Urine Nitrate Negative (Negative) 09/23/22 22:34 Urine Bilirubin Neg (Negative) 09/23/22 22:34 Urine Urobilinogen Norm mg/dL (Negative) 09/23/22 22:34 Ur Leukocyte Esterase 2+ (Negative) H 09/23/22 22:34 Blood Type O Negative 09/23/22 21:30 Rho(D) Type Negative 09/23/22 21:30 Antibody Screen Negative 09/23/22 21:30 Discharge Plan Discharge Patient Disposition: Placed in Observation Admit Provider: Juwan Flood Clinical Impression: Lower gastrointestinal hemorrhage, Diverticulosis, Enteritis, Anemia Coding Level of Care Code ED [employer] for Cristhian Pressley
[2022-09-23 20:54] LABS: Alanine Aminotransferase < 5 U/L (0-33); Albumin Level 4.3 g/dL (3.5-5.2); Alkaline Phosphatase 58 U/L (35-105); Anion Gap 18.3 (5-19); Aspartate Amino Transferase 19 U/L (0-32); Blood Urea Nitrogen 17 mg/dL (8-23); Carbon Dioxide 20 mmol/L (22-29); Chloride 102 mmol/L (98-107); Globulin 2.7 g/dL (1.3-4.6); Glucose 164 mg/dL (65-115); Osmolality Calculated 287 mOsm/kg (285-295); Potassium 4.3 mmol/L (3.5-5.1); Sodium 136 mmol/L (136-145); Total Bilirubin 0.5 mg/dL (0.15-1.2)
--- NOTE | 2022-09-23 21:19 | XRR_ITS ---
PROCEDURE INFORMATION: Exam: XR Chest Exam date and time: 09/23/2022 9:25 PM Age: 82 years old Clinical indication: Other: Weakness TECHNIQUE: Imaging protocol: Radiologic exam of the chest. Views: 1 view. COMPARISON: CR XR chest 1V portable [id number] 12/23/2021 9:15 PM FINDINGS: Lungs: Right lower lobe atelectasis Pleural spaces: Unremarkable. No pleural effusion. No pneumothorax. Heart/Mediastinum: Cardiomegaly. Bones/joints: Unremarkable. XR/XR chest 1V portable [id number] IMPRESSION: 1. Right lower lobe atelectasis 2. Cardiomegaly.
--- NOTE | 2022-09-23 21:26 | CTR_ITS ---
PROCEDURE INFORMATION: Exam: CT Abdomen And Pelvis With Contrast Exam date and time: 09/23/2022 9:42 PM Age: 82 years old Clinical indication: Abdominal pain; Generalized; Additional info: Abdominal pain with rectal bleeding TECHNIQUE: Imaging protocol: Computed tomography of the abdomen and pelvis with contrast. Radiation optimization: All CT scans at this facility use at least one of these dose optimization techniques: automated exposure control; mA and/or kV adjustment per patient size (includes targeted exams where dose is matched to clinical indication); or iterative reconstruction. Contrast material: OMNI 350; Contrast volume: 100 ml; Contrast route: INTRAVENOUS (IV); REPORTING DATA: Count of CT and Cardiac NM exams in prior 12 months: This patient has received 0 known CTs and 0 known cardiac nuclear medicine studies in the 12 months prior to the current study. COMPARISON: CR (CHEST, ) 09/23/2022 9:25 PM RADIATION DOSE METRICS: Total DLP (mGy-cm): 854 FINDINGS: Lungs: Bilateral dependent atelectasis versus infiltrate. Pleural spaces: Moderate to large bilateral pleural effusions. Heart: Cardiomegaly. Liver: Normal. No mass. Gallbladder and bile ducts: Cholelithiasis. Pancreas: Normal. No ductal dilation. Spleen: Normal. No splenomegaly. Adrenal glands: Normal. No mass. Kidneys and ureters: Normal. No hydronephrosis. Stomach and bowel: Prominent fluid in the small bowel without dilation may reflect an enteritis. Diverticulosis without diverticulitis Appendix: No evidence of appendicitis. Intraperitoneal space: Unremarkable. No free air. No significant fluid collection. Vasculature: Unremarkable. No abdominal aortic aneurysm. Lymph nodes: Unremarkable. No enlarged lymph nodes. Urinary bladder: Unremarkable as visualized. Reproductive: Unremarkable as visualized. Bones/joints: Unremarkable. No acute fracture. Soft tissues: Mild anasarca. CT/CT abdomen pelvis w con* [id number] IMPRESSION: 1. Negative for contrast extravasation seen to indicate a source of rectal bleeding as in provided clinical indication. 2. Prominent fluid in the small bowel without dilation may reflect an enteritis. 3. Diverticulosis without diverticulitis 4. Cardiomegaly. 5. Moderate to large bilateral pleural effusions. 6. Bilateral dependent atelectasis versus infiltrate. 7. Cholelithiasis. 8. Mild anasarca.
[2022-09-23] MEDS: iohexol 350 mg/mL 500 mL Btl (per mL) IV (21:43)
[2022-09-23] MEDS: sodium chloride 0.9% 500 ML IV (21:52)
[2022-09-23 23:08] LABS: Bilirubin Urine Neg (Negative); Blood Urine Neg (Negative); Glucose Urine UA Norm (Normal); Ketones Urine Negative (Negative); Nitrate Urine Negative (Negative); Protein Urine Neg (Negative); Specific Gravity, Urine 1.005 (1.005-1.030); Urine Appearance Clear (CLEAR); Urine Color Light yellow (Yellow); pH Urine 6.5 (5-7)
[2022-09-23 23:09] LABS: Add Urine Microscopic? YES; Bacteria Urine TRACE /hpf; Leukocyte Esterase Urine 2+ (Negative); RBC Urine 0-4 /hpf (0-2); Squamous Epithelial Cell Urine 0-4 /hpf (0-5); Urobilinogen Urine Norm (Negative)
[2022-09-23 23:10] LABS: Add Urine Culture? No
--- NOTE | 2022-09-23 23:13 | PM.HP ---
Providers/Chief Complaint Admitting Physician: Juwan Flood MD Primary Care Provider: Gavino Louis MD Chief Complaint: Rectal Bleeding and A Fib History of Present Illness Rosie Bowles is a 82 year old female with a past medical history significant for atrial fibrillation on apixaban, osteoarthritis, and hypertension who presents to the emergency department from home with rectal bleeding x1 day. She endorses associated symptoms of melena with black colored stool, dyspnea on exertion, and shortness of breath. Denies any tarry appearance. She endorses chronic hip pain for which she take Advil. She states she has been taking it fairly consistently lately. Denies prior history of GI bleeding. Denies prior EGD or colonoscopy. Denies prior colon cancer screening such as cologuard or other testing. She reports her brother had colon cancer. Patient denies any nausea, emesis, fevers or chills. Denies any other alleviating or aggravating factors. Review of Systems Narrative: A complete review of systems was obtained and found to be negative except for symptoms listed in HPI. Medications/Allergies Home Medications Medication Instructions Recorded Confirmed Last Taken Type amlodipine 5 mg tablet 5 mg PO DAILY #60 tabs 12/25/21 Unknown Rx apixaban 5 mg tablet (Eliquis) 5 mg PO BID@0900,2100 #120 tabs 12/25/21 Unknown Rx chlorthalidone 25 mg tablet 25 mg PO DAILY #60 tabs 12/25/21 Unknown Rx lisinopril 20 mg tablet 20 mg PO DAILY #60 tabs 12/25/21 Unknown Rx metoprolol tartrate 25 mg tablet 25 mg PO BID #60 tabs 12/25/21 Unknown Rx Allergies Allergy/AdvReac Type Severity Reaction Status Date / Time Sulfa (Sulfonamide Allergy ALGY-Difficulty Verified 09/23/22 19:45 Antibiotics) Breathing PFSH Acute PFSH: Medical History (Updated 09/24/22 @ 00:46 by Juwan Flood MD) Atrial fibrillation with RVR Hip pain Hypertension Family History (Updated 09/24/22 @ 00:47 by Juwan Flood MD) Brother Cancer Social History (Updated 09/24/22 @ 00:47 by Juwan Flood MD) Smoking and tobacco status: never smoked Alcohol intake: never Substance/Drug Use: never Vitals/I&O/Wt Last Vital Signs Temp 98.4 F 09/23/22 19:45 Pulse 97 09/23/22 19:45 Resp 16 09/23/22 19:45 BP 138/76 09/23/22 19:45 Pulse Ox 95 09/23/22 19:45 O2 Del Method Room Air 09/23/22 19:45 Weight last 48 hrs Weight 88.451 kg Physical Exam Const: COMMON NORMALS: alert GENERAL APPEARANCE: cooperative and well developed ORIENTATION/CONSCIOUSNESS: Yes awake HENMT: COMMON NORMALS: normocephalic, atraumatic and moist oral mucous membranes Eye: COMMON NORMALS: EOMs intact bilaterally and no scleral icterus Neck/C-Spine: COMMON NORMALS: supple and no JVD Chest: COMMONS NORMALS: normal inspection of the chest Resp: COMMON NORMALS: normal respiratory effort, No retractions and No use of accessory muscles Cardio: COMMON NORMALS: no JVD, S1 normal heart sound present, S2 normal heart sound present, No gallops present (Cardio) and No rub (Cardio) GI: COMMON NORMALS: Normal to inspection, nondistended, normoactive bowel sounds present, Soft to palpation and non-tender Extremity: COMMON NORMALS: normal to inspection Neuro: COMMON NORMALS: moves all extremities and no focal motor deficits Psych: COMMON NORMALS: mental status grossly normal, cooperative and normal affect Skin: COMMON NORMALS: no jaundice Data 09/23/22 20:15 09/23/22 20:15 A&P Assessment and plan (1) GI bleed: Admission HGB 6.7 Transfusing 2 pRBC Pantoprazole 80 mg IVP then 40 mg IV Q12H General surgery consulted by ED, appreciate reccs NPO pending GS evaluation Hold apixaban No NSAIDs IV fluids Trend hemoglobin (2) Anemia: Acute blood loss anemia secondary to GI bleed Transfusing and management as above (3) Atrial fibrillation: Continue home metoprolol for rate control Hold home apixaban due to GI bleed and anemia (4) Hip pain: Holding home Advil given GI bleed Tylenol as needed for now (5) Hypertension: Continue home metoprolol Hold other antihypertensives, continue to monitor BP and reassess need Plan DVT ppx: SCD Code: Full Attestations Medical Necessity Statement*: Patient presents with GI bleed with hospitalization not expected to cross two midnights. Coding Level of Care Code Acute Code for Chg Fwd Diagnoses GI bleed K92.2 Anemia D64.9 Atrial fibrillation I48.91 Hip pain M25.559 Hypertension I10
[2022-09-24] VITALS (20 sets, daily range): BP systolic 113–158; BP diastolic 60–104; PULSE 63–96; RESP 14–18; TEMP 36.5–36.8; O2SAT 91–95
--- NOTE | 2022-09-24 06:29 | PM.CONSULT ---
Providers/Reason For Consult Consulting Physician/Specialty*: General surgery Reason for Consult*: GI bleed Attending Physician: Juwan Flood MD Primary Care Provider: Gavino Louis MD History of Present Illness History of Present Illness Rosie Bowles is a 82 year old female who presents complaining of dark stools and bleeding per rectum. She also complained of mild abdominal tenderness on the left side of the abdomen. CAT scan done in the emergency department showed no evidence of active bleeding, but there is evidence of diverticular disease. I have been asked to evaluate her for possible endoluminal evaluation. Patient doing well upon my arrival, no acute complaints, has not had another bowel movement since transported to the floor. No nausea or vomiting, does not complain of abdominal pain. Review of Systems Narrative: A 10 point review of systems has been done and is negative otherwise noted in HPI Medications/Allergies Home Medications Medication Instructions Recorded Confirmed Last Taken Type amlodipine 5 mg tablet 5 mg PO DAILY #60 tabs 12/25/21 Unknown Rx apixaban 5 mg tablet (Eliquis) 5 mg PO BID@0900,2100 #120 tabs 12/25/21 Unknown Rx chlorthalidone 25 mg tablet 25 mg PO DAILY #60 tabs 12/25/21 Unknown Rx lisinopril 20 mg tablet 20 mg PO DAILY #60 tabs 12/25/21 Unknown Rx metoprolol tartrate 25 mg tablet 25 mg PO BID #60 tabs 12/25/21 Unknown Rx Allergies Allergy/AdvReac Type Severity Reaction Status Date / Time Sulfa (Sulfonamide Allergy ALGY-Difficulty Verified 09/23/22 19:45 Antibiotics) Breathing PFSH Acute PFSH: Medical History (Updated 09/24/22 @ 00:46 by Juwan Flood MD) Atrial fibrillation with RVR Hip pain Hypertension Family History (Updated 09/24/22 @ 00:47 by Juwan Flood MD) Brother Cancer Social History (Updated 09/24/22 @ 00:47 by Juwan Flood MD) Smoking and tobacco status: never smoked Alcohol intake: never Substance/Drug Use: never Vitals/I&O/Wt Last Vital Signs Temp 98.3 F 09/24/22 05:34 Pulse 73 09/24/22 05:34 Resp 15 09/24/22 05:34 BP 131/77 09/24/22 05:34 Pulse Ox 94 09/24/22 05:34 O2 Del Method Room Air 09/24/22 04:11 09/23/22 09/23/22 09/24/22 14:59 22:59 06:59 Intake Total 1025 / 1025 Balance 1025 / 1025 Weight last 48 hrs Weight 203 lb 3 oz Weight 195 lb Physical Exam Narrative: General : Patient is well developed , no acute distress, oriented x3 CV : Rate and rhythm are normal. Abdomen : Soft, ND, NT, no g/r/m Extremities : No edema. Upper extremities are normal bilaterally. Back : non-tender to palpation, no CVA tenderness. Data 09/23/22 20:15 09/23/22 20:15 A&P Assessment and plan (1) GI bleed: This is a 82-year-old female who presents to the hospital with possible lower GI bleed related to diverticular disease. CAT scan done in the emergency department is unremarkable. Has not had any further episodes of bleeding. Currently is receiving 2 units of PRBC. Repeat CBC will be done after transfusion is completed. At the moment there is no emergent indication for endoluminal evaluation. I will reevaluate the patient in the afternoon, we will probably proceed with a rectal exam the patient is agreeable. In the case of 4 to her episodes of possible melena we will proceed with EGD tomorrow, if hemoglobin continues to drop or patient shows hemodynamic symptoms will likely proceed with urgent lower GI endoluminal evaluation. If she remains stable and no further episodes of GI bleeding we will likely plan for an elective colonoscopy to allow for adequate bowel prep. Coding Level of Care Code 65517 Diagnoses GI bleed K92.2
[2022-09-24] MEDS: sodium chloride 0.9% 1,000 ML 80 ML IV (07:55)
[2022-09-24] MEDS: metoprolol tartrate 25 mg Tablet PO ×2 (07:55→17:26)
[2022-09-24 09:01] LABS: Basophils # 0.1 10^3/uL (0.0-0.1); Basophils % 0.8 %; Eosinophils # 0.3 10^3/uL (0.0-0.8); Hematocrit 28.3 % (37.0-47.0); Hemoglobin 8.5 g/dL (11.5-15.3); Lymphocytes # 2.3 10^3/uL (0.8-4.8); Lymphocytes % 26.8 %; Mean Corpuscular Hemoglobin 22.1 pg (28.0-34.0); Mean Corpuscular Volume 73.5 fl (81-99); Mean Platelet Volume 9.8 fL (7.4-10.4); Monocytes # 1.1 10^3/uL (0.2-0.9); Monocytes % 12.3 %; Neutrophils # 4.91 10^3/uL (1.8-7.7); Neutrophils % 56.9 %; Nucleated Red Blood Cells % 0 %; Platelet Count 302 10^3/cmm (130-400); Red Blood Count 3.85 10^6/uL (4.1-5.3); Red Cell Distribution Width 17.4 % (12.1-15.1); White Blood Count 8.6 10^3/uL (4.0-10.0)
[2022-09-24 09:32] LABS: Anion Gap 15.9 (5-19); Blood Urea Nitrogen 12 mg/dL (8-23); Calcium 8.6 mg/dL (8.5-10.5); Carbon Dioxide 19 mmol/L (22-29); Chloride 104 mmol/L (98-107); Glucose 118 mg/dL (65-115); Magnesium 1.8 mg/dL (1.7-2.3); Osmolality Calculated 281 mOsm/kg (285-295); Potassium 3.9 mmol/L (3.5-5.1); Sodium 135 mmol/L (136-145)
--- NOTE | 2022-09-24 09:51 | PC.PHAR ---
pt states she takes care of her own medications-pt states she takes amlodpine 5mg daily prn ext shows last filled 07/18/22 90d/s 5mg daily-pt states last week she took mag ox for 2 days then states she stop taking-
[2022-09-24] MEDS: pantoprazole 40 mg SDV IVP (11:55)
--- NOTE | 2022-09-24 13:43 | PM.PN ---
Subjective Subjective: She had an episode of vomiting yesterday morning. So far no additional vomiting. So far also no additional bowel movements. Vitals/I&O/Wt Last Vital Signs Temp 98.3 F 09/24/22 11:02 Pulse 96 09/24/22 13:05 Resp 18 09/24/22 13:05 BP 130/70 09/24/22 11:02 Pulse Ox 94 09/24/22 13:05 O2 Del Method Room Air 09/24/22 13:05 09/23/22 09/24/22 09/24/22 22:59 06:59 14:59 Intake Total 1025 / 1025 175 / 175 Balance 1025 / 1025 175 / 175 Weight last 48 hrs Weight 92.164 kg Weight 88.451 kg Physical Exam Const: COMMON NORMALS: patient oriented x3 and alert GENERAL APPEARANCE: cooperative ORIENTATION/CONSCIOUSNESS: Yes awake HENMT: COMMON NORMALS: oropharynx normal Neck/C-Spine: COMMON NORMALS: no JVD Resp: COMMON NORMALS: normal respiratory effort and clear to auscultation bilaterally AUSCULTATION: clear to auscultation bilaterally Cardio: COMMON NORMALS: no JVD, regular rhythm, S1 normal heart sound present, S2 normal heart sound present and No murmurs present (Cardio) RHYTHM: regular rhythm HEART SOUNDS: S1 normal heart sound present and S2 normal heart sound present GI: COMMON NORMALS: Normal to inspection, nondistended, normoactive bowel sounds present, Soft to palpation and non-tender PALPATION: Yes Soft to palpation Extremity: COMMON NORMALS: no joint enlargement and no pedal edema Neuro: COMMON NORMALS: patient oriented x3 and moves all extremities SENSORIUM/ORIENTATION: Yes alert Skin: COMMON NORMALS: no rashes or lesions noted GENERAL SKIN EXAM: no rashes or lesions noted Data 09/24/22 08:50 09/24/22 08:50 A&P Assessment and plan (1) GI bleed: Received 2 units RBC transfusion. With decent response hemoglobin up to 8.5. Follow-up hemoglobin again this afternoon. Surgical documentation noted, plans for possible EGD depending on condition, consideration +/- colonoscopy on a more urgent basis versus elective. At risk of additional possibly severe and/life-threatening bleeding, on Eliquis preadmission. Stop IV fluid. Risk of fluid overload, noted moderate pleural effusions, at home on diuretic with HCTZ. If maintaining blood pressure due to risk of fluid overload, worsening effusions, respiratory failure, will give a dose of Lasix due to additional volume with blood transfusions. Monitor oxygenation. Continue pantoprazole 80 mg IVP then 40 mg IV Q12H NPO Hold apixaban No NSAIDs (2) Anemia: Acute blood loss anemia secondary to GI bleed Transfusing and management as above (3) Atrial fibrillation: Continue home metoprolol for rate control Hold home apixaban due to GI bleed and anemia INR 2.32 secondary to Eliquis. (4) Hip pain: Holding home Advil given GI bleed Tylenol as needed for now (5) Hypertension: Continue home metoprolol Hold other antihypertensives, continue to monitor BP and reassess need (6) Abnormal urinalysis: Does not endorse urinary symptoms. Noted 10-15 WBC. Negative nitrite. Trace bacteria. We will request urine culture. Plan DVT ppx: SCD Code: Full Attestations Medical Necessity Statement*: Continue admission for assessment management of GI bleeding with anticoagulation, risk of life-threatening bleeding, further assessment management by surgery, pleural effusions, or fluid overload. Diagnoses GI bleed K92.2 Anemia D64.9 Atrial fibrillation I48.91 Hip pain M25.559 Hypertension I10 Abnormal urinalysis R82.90
[2022-09-24] MEDS: magnesium sulfate premix 2 GM/50 ML PIGGYBACK IV (14:15)
[2022-09-24] MEDS: FUROsemide 10 mg/mL SDV 2mL 20 MG IVP (14:37)
[2022-09-24 15:30] LABS: Hemoglobin 9.5 g/dL (11.5-15.3)
[2022-09-25] VITALS (16 sets, daily range): BP systolic 101–151; BP diastolic 63–89; PULSE 70–129; RESP 12–18; TEMP 36.4–36.8; O2SAT 92–97
[2022-09-25] MEDS: pantoprazole 40 mg SDV IVP ×2 (00:43→13:40)
[2022-09-25 04:32] LABS: Basophils # 0.1 10^3/uL (0.0-0.1); Basophils % 1.1 %; Eosinophils # 0.6 10^3/uL (0.0-0.8); Eosinophils % 5.8 %; Hemoglobin 9.5 g/dL (11.5-15.3); Lymphocytes # 3.1 10^3/uL (0.8-4.8); Lymphocytes % 30.3 %; Mean Corpuscular HGB Conc 30.6 g/dL (30.0-36.0); Mean Corpuscular Hemoglobin 22.4 pg (28.0-34.0); Mean Corpuscular Volume 73.1 fl (81-99); Mean Platelet Volume 9.8 fL (7.4-10.4); Monocytes # 1.2 10^3/uL (0.2-0.9); Monocytes % 11.3 %; Neutrophils # 5.31 10^3/uL (1.8-7.7); Neutrophils % 51.1 %; Nucleated Red Blood Cells % 0 %; Platelet Count 325 10^3/cmm (130-400); Red Blood Count 4.24 10^6/uL (4.1-5.3); Red Cell Distribution Width 17.5 % (12.1-15.1); White Blood Count 10.4 10^3/uL (4.0-10.0)
[2022-09-25 04:48] LABS: Anion Gap 15.7 (5-19); Blood Urea Nitrogen 11 mg/dL (8-23); Calcium 8.9 mg/dL (8.5-10.5); Carbon Dioxide 24 mmol/L (22-29); Chloride 101 mmol/L (98-107); Glucose 106 mg/dL (65-115); Osmolality Calculated 284 mOsm/kg (285-295); Potassium 3.7 mmol/L (3.5-5.1); Sodium 137 mmol/L (136-145)
--- NOTE | 2022-09-25 06:38 | PM.PN ---
Subjective Subjective: No acute interval changes in the last 24 hours. Patient has remained stable. No further GI bleed. Hemoglobin has responded appropriately to transfusion. The plan is for EGD today to evaluate for possible upper GI bleeding sources. Vitals/I&O/Wt Last Vital Signs Temp 98.1 F 09/25/22 04:00 Pulse 77 09/25/22 04:00 Resp 16 09/25/22 04:00 BP 151/63 09/25/22 04:00 Pulse Ox 95 09/25/22 04:00 O2 Del Method Room Air 09/25/22 04:00 09/24/22 09/24/22 09/25/22 14:59 22:59 06:59 Intake Total 175 / 175 50 / 225 Balance 175 / 175 50 / 225 Weight last 48 hrs Weight 194 lb Weight 203 lb 3 oz Weight 195 lb Physical Exam Narrative: General : Patient is well developed , no acute distress, oriented x3 CV : Rate and rhythm are normal. Abdomen : Soft, ND, NT, no g/r/m Extremities : No edema. Upper extremities are normal bilaterally. Back : non-tender to palpation, no CVA tenderness. Data 09/25/22 04:04 09/25/22 04:04 A&P Assessment and plan (1) GI bleed: Plan 82-year-old female who presented with symptoms concerning for GI bleed. Symptoms Subsided. Due to history of NSAID use as well as anticoagulant use consider is appropriate to proceed with upper GI endoscopy to evaluate for possible upper GI sources of bleeding. If upper GI endoscopy is negative probably will recommend to advance diet and continue medical management and patient can receive lower GI endoluminal evaluation at elective basis. ? For EGD today Attestations Medical Necessity Statement*: Patient with GI bleed, will require upper GI today. Coding Level of Care Code Acute Code for Chg Fwd Diagnoses GI bleed K92.2
--- NOTE | 2022-09-25 08:07 | ANES.PREANE2 ---
Pre-Anesthetic Assessment Height/Weight: Height 1.6 m Weight 87.997 kg Temp Pulse Resp BP Pulse Ox O2 Del Method 98.3 F 85 18 134/77 93 Room Air 09/25/22 07:20 09/25/22 07:20 09/25/22 07:20 09/25/22 07:20 09/25/22 07:20 09/25/22 07:20 Preop Diagnosis: GI bleed Operation Date: 09/25/22 09:00 Proposed Procedures p EGD(Not Applicable) - Osmar Villareal MD Familial anesthetic complications: none Was Beta Gretel taken within 24 hours: Yes Was Clonidine taken within 24 hours: N/A Social No alcohol and No tobacco Exam alert, oriented x 3, clear to auscultation bilaterally and regular rate & rhythm Airway Submandibular: within normal limits Cervical ROM: within normal limits Mallampati: Class II Dentition: false and partials Comments: Comments: some lower need to be removed Pulmonary None reported CV/HEM Atrial Fibrillation and Hypertension None reported Hepatic None reported GI None reported Metabolic None reported Musc/skel Lower Back Pain and Osteoarthritis/DJD Neuropsych None reported Anesthetic Plan ASA status: 3 Anesthesia: MAC Medications/Allergies Home Medications Medication Instructions Recorded Confirmed Last Taken Type amlodipine 5 mg tablet 5 mg PO DAILY PRN blood pressure 09/24/22 09/24/22 Unknown History over 140 apixaban 5 mg tablet (Eliquis) 5 mg PO BID@03,15 09/24/22 09/24/22 Unknown History hydrochlorothiazide 12.5 mg tablet 12.5 mg PO QAM 09/24/22 09/24/22 Unknown History losartan 100 mg tablet 50 mg PO BID 09/24/22 09/24/22 Unknown History metoprolol tartrate 25 mg tablet 25 mg PO BID@03,15 09/24/22 09/24/22 Unknown History multivitamin 1 tab PO DAILY PRN unknown 09/24/22 09/24/22 Unknown History naproxen sodium 220 mg tablet 440 - 660 mg PO DAILY PRN Pain 09/24/22 09/24/22 Unknown History (Aleve) Allergies Allergy/AdvReac Type Severity Reaction Status Date / Time Sulfa (Sulfonamide Allergy ALGY-Difficulty Verified 09/24/22 09:50 Antibiotics) Breathing Current Medications Generic Name Dose Route Start Last Admin Trade Name Freq PRN Reason Stop Dose Admin Sodium Chloride 1,000 mls @ 80 mls/hr 09/24/22 00:45 09/24/22 07:55 Sodium Chloride 0.9% IV 80 mls/hr .[id number] LORA Administration Metoprolol Tartrate 25 mg 09/24/22 09:00 09/24/22 17:26 Metoprolol Tartrate 25 Mg Tablet PO 25 mg BID LORA Administration Pantoprazole Sodium 40 mg 09/24/22 12:45 09/25/22 00:43 Pantoprazole 40 Mg Sdv IVP 40 mg Q12H LORA Administration PFSH Anesthesia Medical History (Updated 09/24/22 @ 14:02 by James Novoa MD) Atrial fibrillation with RVR Hip pain Hypertension Family History (Updated 09/24/22 @ 00:47 by Juwan Flood MD) Brother Cancer Social History (Updated 09/24/22 @ 00:47 by Juwan Flood MD) Smoking and tobacco status: never smoked Alcohol intake: never Substance/Drug Use: never Data Anesthesia 09/25/22 04:04 09/25/22 04:04 Short CBC 09/23/22 09/24/22 09/24/22 Range/Units 20:15 08:50 15:17 WBC 9.4 8.6 (4.0-10.0) 10^3/uL Hgb 6.7 L 8.5 L 9.5 L (11.5-15.3) g/dL Hct 22.9 L 28.3 L (37.0-47.0) % MCV 70.5 L 73.5 L (81-99) fl Plt Count 353 302 (130-400) 10^3/cmm Neut % (Auto) 52.1 56.9 % Neut # (Auto) 4.92 4.91 (1.8-7.7) 10^3/uL 09/25/22 Range/Units 04:04 WBC 10.4 H (4.0-10.0) 10^3/uL Hgb 9.5 L (11.5-15.3) g/dL Hct 31.0 L (37.0-47.0) % MCV 73.1 L (81-99) fl Plt Count 325 (130-400) 10^3/cmm Neut % (Auto) 51.1 % Neut # (Auto) 5.31 (1.8-7.7) 10^3/uL BMP 09/23/22 09/24/22 09/25/22 20:15 08:50 04:04 Sodium 136 135 L 137 Potassium 4.3 3.9 3.7 Chloride 102 104 101 Carbon Dioxide 20 L 19 L 24 BUN 17 12 11 Creatinine 1.0 H 0.8 0.9 Glucose 164 H 118 H 106 Calcium 9.0 8.6 8.9 Liver Function 09/23/22 Range/Units 20:15 Total Bilirubin 0.5 (0.15-1.2) mg/dL AST 19 (0-32) U/L ALT < 5 (0-33) U/L Alkaline Phosphatase 58 (35-105) U/L Albumin 4.3 (3.5-5.2) g/dL Urine 09/23/22 Range/Units 22:34 Urine Color Light yellow (Yellow) Urine Appearance Clear (CLEAR) Urine pH 6.5 (5-7) Ur Specific [place] 1.005 (1.005-1.030) Urine Protein Neg (Negative) Urine Glucose (UA) Norm (Normal) Urine Ketones Negative (Negative) Urine Nitrate Negative (Negative) Urine Bilirubin Neg (Negative) Ur Leukocyte Esterase 2+ H (Negative) Urine RBC 0-4 H (0-2) /hpf Urine WBC 10-15 H (0-5) /hpf Blood Bank 09/23/22 21:30 Blood Type O Negative Rho(D) Type Negative Antibody Screen Negative Coags 09/23/22 20:15 PT 26.40 H INR 2.32 H Cardiac Studies: Echocardiogram 12/23/21
[2022-09-25] MEDS: sodium chloride 0.9% 1,000 ML 30 ML IV (08:09)
--- NOTE | 2022-09-25 10:06 | PM.MISC ---
Miscellaneous Note Purpose of Documentation: Update for patient care Note: Patient was taken this morning for diagnostic EGD. Mild to moderate gastritis was noted in the body antrum and prepyloric region, there is also mild duodenitis at the bulb of the duodenum. There is multiple ulcers both in the antrum and prepyloric region, majority of them have a fibrin clot at the ring at the base with no active bleeding or visible vessel. Patient should continue medical management with high-dose PPI, I recommend we add sucralfate (Carafate) 1 g every 6 or 8 hours to aid with healing of the ulcers. Patient can be started in the diet. She will require repeat EGD in about 4 to 6 weeks for possible biopsies and evaluation of healing. Due to the pattern shown by the ulcerations in the antrum and the prepyloric region, there is likelihood that this GI bleed was caused by NSAIDs ingestion.
--- NOTE | 2022-09-25 10:35 | PC.NURSE ---
Patient arrived back to med/surg 250-1 from GI Lab.
[2022-09-25] MEDS: FUROsemide 10 mg/mL SDV 4mL 40 MG IVP (11:25)
[2022-09-25] MEDS: metoprolol tartrate 25 mg Tablet PO ×2 (12:29→17:49)
--- NOTE | 2022-09-25 15:19 | ANE.PACU2 ---
Inpatient post-anesthesia follow up: Airway intact: Yes Vital signs: Temperature 97.8 F Pulse Rate 105 Respiratory Rate 18 Blood Pressure 135/89 Pulse Oximetry 92 Oxygen Delivery Me thod Room Air Oxygen Flow Rate 3 Fraction of Inspir ed Oxygen Hydration adequate: No Nausea and vomiting: No Pain level: 2 Mental status: Baseline
--- NOTE | 2022-09-25 16:23 | PM.PN ---
Subjective Subjective: She reports today she is doing better. She has had no further dark stools. Reports breathing is doing better. Vitals/I&O/Wt Last Vital Signs Temp 98.1 F 09/25/22 16:00 Pulse 93 09/25/22 16:00 Resp 17 09/25/22 16:00 BP 137/75 09/25/22 16:00 Pulse Ox 95 09/25/22 16:00 O2 Del Method Room Air 09/25/22 16:00 O2 Flow Rate 3 09/25/22 09:58 09/25/22 09/25/22 09/25/22 06:59 14:59 22:59 Intake Total 780 / 780 Balance 780 / 780 Weight last 48 hrs Weight 87.997 kg Weight 92.164 kg Weight 88.451 kg Physical Exam Const: COMMON NORMALS: patient oriented x3 and alert GENERAL APPEARANCE: cooperative ORIENTATION/CONSCIOUSNESS: Yes awake HENMT: COMMON NORMALS: oropharynx normal Neck/C-Spine: COMMON NORMALS: no JVD Resp: COMMON NORMALS: normal respiratory effort and clear to auscultation bilaterally AUSCULTATION: clear to auscultation bilaterally Cardio: COMMON NORMALS: no JVD, regular rhythm, S1 normal heart sound present, S2 normal heart sound present and No murmurs present (Cardio) RHYTHM: regular rhythm HEART SOUNDS: S1 normal heart sound present and S2 normal heart sound present GI: COMMON NORMALS: Normal to inspection, nondistended, normoactive bowel sounds present, Soft to palpation and non-tender PALPATION: Yes Soft to palpation Extremity: COMMON NORMALS: no joint enlargement GENERAL: Yes edema (Trace) Neuro: COMMON NORMALS: patient oriented x3 and moves all extremities SENSORIUM/ORIENTATION: Yes alert Skin: COMMON NORMALS: no rashes or lesions noted GENERAL SKIN EXAM: no rashes or lesions noted Data 09/25/22 04:04 09/25/22 04:04 Micro: Microbiology 09/23/22 22:34 Urine Culture - Preliminary Urine,Clean Catch A&P Assessment and plan (1) GI bleed: Hemoglobin today noted 9.5. Underwent EGD. Discussed with surgery. Noted large amount of inflammation, gastritis in the antrum, pyloric ulcers, black material, no active bleed. Mild inflammation in the duodenal bulb. EGD report reviewed. Surgery continue PPI, adding sucralfate. Can advance diet. We will reassess blood counts in the morning due to still risk of rebleeding. Would like her to follow-up with surgery in office, at which point samples will be taken for H. pylori as well, currently with concern for high risk of rebleeding with biopsies. Discussed with patient and her son. Continue PPI. Discontinue NSAIDs. Hold anticoagulation for now. Colonoscopy to be considered on elective basis upon follow-up with surgery. Continue pantoprazole 80 mg IVP then 40 mg IV Q12H CLD Hold apixaban No NSAIDs (2) Anemia: Hemoglobin noted 9.5. Platelet 325. MCV 73.1. Check iron studies. Acute blood loss anemia secondary to GI bleed Received 2 units RBC this hospital stay (3) Pleural effusion: Bilateral pleural effusion on CT on presentation. At home on HCTZ. Diuretic was held here, received 2 units RBC transfusion as well as initial fluid resuscitation, yesterday given Lasix, today feels breathing is doing better. Repeating Lasix again. Monitor TUYET. Recheck renal function. TTE back in December 2021 normal EF but grade 3 diastolic dysfunction. Effusions likely secondary to diastolic CHF decompensation. She appears to be responding to diuretic. Will need follow-up to assess for resolution. At risk of hypotension and cardiogenic shock with severe low gradient aortic stenosis with diuresis. Monitor blood pressure. (4) Atrial fibrillation: Continue home metoprolol for rate control Hold home apixaban due to GI bleed and anemia INR 2.32 secondary to Eliquis. (5) Hip pain: Holding home Advil given GI bleed Tylenol as needed for now (6) Hypertension: Continue home metoprolol Hold other antihypertensives, continue to monitor BP and reassess need (7) Abnormal urinalysis: Does not endorse urinary symptoms. Noted 10-15 WBC. Negative nitrite. Trace bacteria. We will request urine culture. Plan DVT ppx: SCD Code: Full Discussed with case management. Attestations Medical Necessity Statement*: Continue mission for assessment of acute blood loss anemia with GI bleeding, with finding of NSAID induced gastritis and ulcers with risk of rebleeding, continue IV PPI, reassess condition and blood counts, monitor blood pressure with diuresis for decompensated diastolic CHF in setting of severe aortic stenosis. Diagnoses GI bleed K92.2 Anemia D64.9 Pleural effusion J90 Atrial fibrillation I48.91 Hip pain M25.559 Hypertension I10 Abnormal urinalysis R82.90
[2022-09-25 17:13] LABS: Ferritin 31 ng/mL (15-150); Iron 15 ug/dL (37-145); Total Iron Binding Capacity 485 mcg/dl; Unsaturated Iron Binding 470 ug/dL (112-347)
[2022-09-25] MEDS: sucralfate 1 gm Tablet PO (18:03)
[2022-09-26] MEDS: pantoprazole 40 mg SDV IVP ×2 (00:26→11:56)
[2022-09-26] MEDS: sucralfate 1 gm Tablet PO ×3 (00:27→11:57)
[2022-09-26 03:38] VITALS: BP 139/78; PULSE 80; RESP 17; TEMP 36.5; O2SAT 94
[2022-09-26 04:59] LABS: Basophils # 0.1 10^3/uL (0.0-0.1); Basophils % 0.8 %; Eosinophils # 0.7 10^3/uL (0.0-0.8); Eosinophils % 6.1 %; Hematocrit 32.6 % (37.0-47.0); Hemoglobin 9.8 g/dL (11.5-15.3); Lymphocytes # 2.8 10^3/uL (0.8-4.8); Lymphocytes % 25.3 %; Mean Corpuscular HGB Conc 30.1 g/dL (30.0-36.0); Mean Corpuscular Hemoglobin 21.7 pg (28.0-34.0); Mean Corpuscular Volume 72.1 fl (81-99); Mean Platelet Volume 10.5 fL (7.4-10.4); Monocytes # 1.4 10^3/uL (0.2-0.9); Monocytes % 12.1 %; Neutrophils # 6.21 10^3/uL (1.8-7.7); Neutrophils % 55.3 %; Nucleated Red Blood Cells % 0 %; Platelet Count 363 10^3/cmm (130-400); Red Blood Count 4.52 10^6/uL (4.1-5.3); Red Cell Distribution Width 18.2 % (12.1-15.1); White Blood Count 11.2 10^3/uL (4.0-10.0)
[2022-09-26 05:22] LABS: Anion Gap 16.7 (5-19); Blood Urea Nitrogen 10 mg/dL (8-23); Calcium 8.6 mg/dL (8.5-10.5); Carbon Dioxide 24 mmol/L (22-29); Chloride 100 mmol/L (98-107); Glucose 126 mg/dL (65-115); Osmolality Calculated 285 mOsm/kg (285-295); Potassium 3.7 mmol/L (3.5-5.1); Sodium 137 mmol/L (136-145)
[2022-09-26 05:27] VITALS: PULSE 82
[2022-09-26 07:13] VITALS: BP 146/81; PULSE 82; RESP 18; TEMP 36.6; O2SAT 94
[2022-09-26] MEDS: metoprolol tartrate 25 mg Tablet PO (08:32)
[2022-09-26 11:33] VITALS: BP 113/76; PULSE 106; RESP 16; TEMP 36.4; O2SAT 94
--- NOTE | 2022-09-26 12:56 | P.DS_ITS ---
Discharge Providers Date of Admission: 09/23/22 23:04 Date of Discharge: September 26, 2022 Attending Provider at Admission: Juwan Flood MD Attending Provider at Discharge: James Novoa Primary Care Provider: Gavino Louis MD Diagnoses at Discharge Discharge Diagnosis (1) GI bleed: Status: Acute (2) Anemia: Status: Acute (3) Pleural effusion: Status: Acute (4) Atrial fibrillation: Status: Acute (5) Hip pain: Status: Acute (6) Hypertension: Status: Acute (7) Abnormal urinalysis: Status: Acute Reason for Visit Reason for Visit: Rectal Bleeding and A Fib Hospital Course Hospital Course Very pleasant 82-year-old lady with history of atrial fibrillation on apixaban, osteoarthritis on Aleve, presented due to melena, dyspnea on exertion, shortness of breath, on presentation with acute anemia, hemoglobin down to 6.7, with suspected upper GI bleed, Eliquis was held, NSAIDs stopped, received transfusion 2 units RBC. Started on IV Protonix every 12 hours. Hemoglobin was monitored. Did not end up requiring additional transfusion. Assessed by surgery underwent EGD, with finding of significant inflammation, gastritis in the antrum, pyloric ulcers, with black material no active bleed, mild inflammation in duodenal bulb. Monitored additionally due to some risk of rebleeding, hemoglobin today continues to improve. Found to have iron deficiency anemia. Biopsies, H. pylo ri testing were not obtained per surgery due to high risk of bleeding. Continues on PPI, sucralfate, asked to stop NSAIDs, Eliquis for now held. Please revisit with her, reassess blood counts next week. Please consider if anticoagulation may be safe to resume at some point for stroke risk prophylaxis with atrial fibrillation versus consideration of other options if persistent risk of rebleeding. She is asked to follow-up for reassessment with surgery in office with consideration of the additional studies at that point in 4-6 weeks. Due to finding of the source of the bleed, colonoscopy will be revisited on outpatient basis. CT abdomen pelvis obtained on presentation results as below, was found to be in decompensated diastolic congestive heart failure previously with noted grade 3 diastolic dysfunction. Normal EF. With noted moderate to large bilateral pleural effusions on CT. HCTZ was held. Received IV Lasix with good response. Dyspnea resolved. Acute CHF improved. At discharge continues on Lasix for now, HCTZ is held. Please follow-up volume status, renal function, adjust diuretics accordingly. She is asked to also follow-up with cardiology. Physical Exam Narrative: Pleasant, in good spirits, sitting up in chair, conversing with her neighbor. Denies pain or discomfort. No complaints or issues. Breathing much better. Ready to discharge home. Const: COMMON NORMALS: patient oriented x3 and alert GENERAL APPEARANCE: cooperative ORIENTATION/CONSCIOUSNESS: Yes awake HENMT: COMMON NORMALS: oropharynx normal Neck/C-Spine: COMMON NORMALS: no JVD Resp: COMMON NORMALS: normal respiratory effort and clear to auscultation bilaterally AUSCULTATION: clear to auscultation bilaterally Cardio: COMMON NORMALS: no JVD, regular rhythm, S1 normal heart sound present, S2 normal heart sound present and No murmurs present (Cardio) RHYTHM: regular rhythm HEART SOUNDS: S1 normal heart sound present and S2 normal heart sound present GI: COMMON NORMALS: Normal to inspection, nondistended, normoactive bowel so unds present, Soft to palpation and non-tender PALPATION: Yes Soft to palpation Extremity: COMMON NORMALS: no joint enlargement and no pedal edema Neuro: COMMON NORMALS: patient oriented x3 and moves all extremities SENSORIUM/ORIENTATION: Yes alert Skin: COMMON NORMALS: no rashes or lesions noted GENERAL SKIN EXAM: no rashes or lesions noted Discharge Data Studies Completed and Pending Completed Studies During Hospitalization Category Date Time Status CT abdomen pelvis w con* [id number] Stat Cat Scan 09/23/22 21:26 Completed XR chest 1V portable [id number] Stat Exams 09/23/22 21:19 Completed Pending at discharge Category Date Time Status Basic Metabolic Panel AM LABS Lab 09/27/22 04:00 Ordered Complete Blood Count w/Auto AM LABS Lab 09/27/22 04:00 Ordered Radiology Impressions Chest X-Ray 09/23/22 21:19 IMPRESSION: 1. Right lower lobe atelectasis 2. Cardiomegaly. Abdomen/Pelvis CT 09/23/22 21:26 IMPRESSION: 1. Negative for contrast extravasation seen to indicate a source of rectal bleeding as in provided clinical indication. 2. Prominent fluid in the small bowel without dilation may reflect an enteritis. 3. Diverticulosis without diverticulitis 4. Cardiomegaly. 5. Moderate to large bilateral pleural effusions. 6. Bilateral dependent atelectasis versus infiltrate. 7. Cholelithiasis. 8. Mild anasarca. Laboratory Results WBC 11.2 10^3/uL (4.0-10.0) H 09/26/22 04:10 RBC 4.52 10^6/uL (4.1-5.3) 09/26/22 04:10 Hgb 9.8 g/dL (11.5-15.3) L 09/26/22 04:10 Hct 32.6 % (37.0-47.0) L 09/26/22 04:10 MCV 72.1 fl (81-99) L 09/26/22 04:10 MCH 21.7 pg (28.0-34.0) L 09/26/22 04:10 MCHC 30.1 g/dL (30.0-36.0) 09/26/22 04:10 RDW 18.2 % (12.1-15.1) H 09/26/22 04:10 Plt Count 363 10^3/cmm (130-400) 09/26/22 04:10 MPV 10.5 fL (7.4-10.4) H 09/26/22 04:10 Neut % (Auto) 55.3 % 09/26/22 04:10 Lymph % (Auto) 25.3 % 09/26/22 04:10 [place] % (Auto) 12.1 % 09/26/22 04:10 Eos % (Auto) 6.1 % 09/26/22 04:10 Baso % (Auto) 0.8 % 09/26/22 04:10 Neut # (Auto) 6.21 10^3/uL (1.8-7.7) 09/26/22 04:10 Lymph # (Auto) 2.8 10^3/uL (0.8-4.8) 09/26/22 04:10 [place] # (Auto) 1.4 10^3/uL (0.2-0.9) H 09/26/22 04:10 Eos # (Auto) 0.7 10^3/uL (0.0-0.8) 09/26/22 04:10 Baso # (Auto) 0.1 10^3/uL (0.0-0.1) 09/26/22 04:10 Nucleated RBC % (auto) 0 % 09/26/22 04:10 Nucleated RBCs # 0.0 /100WBC 09/26/22 04:10 PT 26.40 SECONDS (12.1-14.9) H 09/23/22 20:15 INR 2.32 (0.8-1.2) H 09/23/22 20:15 Sodium 137 mmol/L (136-145) 09/26/22 04:10 Potassium 3.7 mmol/L (3.5-5.1) 09/26/22 04:10 Chloride 100 mmol/L (98-107) 09/26/22 04:10 Carbon Dioxide 24 mmol/L (22-29) 09/26/22 04:10 Anion Gap 16.7 (5-19) 09/26/22 04:10 BUN 10 mg/dL (8-23) 09/26/22 04:10 Creatinine 0.9 mg/dL (0.5-0.9) 09/26/22 04:10 GFR Calculation Not Reportable 09/26/22 04:10 Glucose 126 mg/dL (65-115) H 09/26/22 04:10 Calculated Osmolality 285 mOsm/kg (285-295) 09/26/22 04:10 Calcium 8.6 mg/dL (8.5-10.5) 09/26/22 04:10 Phosphorus 3.0 mg/dL (2.5-4.5) 09/24/22 08:50 Magnesium 1.8 mg/dL (1.7-2.3) 09/24/22 08:50 Iron 15 ug/dL (37-145) L 09/25/22 04:04 TIBC 485 mcg/dl 09/25/22 04:04 % Saturation 3.0 % (20-50) L 09/25/22 04:04 Unsat Iron Binding 470 ug/dL (112-347) H 09/25/22 04:04 Ferritin 31 ng/mL (15-150) 09/25/22 04:04 Total Bilirubin 0.5 mg/dL (0.15-1.2) 09/23/22 20:15 AST 19 U/L (0-32) 09/23/22 20:15 ALT < 5 U/L (0-33) 09/23/22 20:15 Alkaline Phosphatase 58 U/L (35-105) 09/23/22 20:15 Total Protein 7.0 g/dL (6.6-8.7) 09/23/22 20:15 Albumin 4.3 g/dL (3.5-5.2) 09/23/22 20:15 Globulin 2.7 g/dL (1.3-4.6) 09/23/22 20:15 Urine Color Light yellow (Yellow) 09/23/22 22:34 Urine Appearance Clear (CLEAR) 09/23/22 22:34 Urine pH 6.5 (5-7) 09/23/22 22:34 Ur Specific [place] 1.005 (1.005-1.030) 09/23/22 22:34 Urine Protein Neg (Negative) 09/23/22 22:34 Urine Glucose (UA) Norm (Normal) 09/23/22 22:34 Urine Ketones Negative (Negative) 09/23/22 22:34 Urine Blood Neg (Negative) 09/23/22 22:34 Urine Nitrate Negative (Negative) 09/23/22 22:34 Urine Bilirubin Neg (Negative) 09/23/22 22:34 Urine Urobilinogen Norm mg/dL (Negative) 09/23/22 22:34 Ur Leukocyte Esterase 2+ (Negative) H 09/23/22 22:34 Urine RBC 0-4 /hpf (0-2) H 09/23/22 22:34 Urine WBC 10-15 /hpf (0-5) H 09/23/22 22:34 Ur Squamous Epith Cells 0-4 /hpf (0-5) H 09/23/22 22:34 Amorphous Sediment Not Reportable 09/23/22 22:34 Urine Bacteria Trace /hpf (NONE) 09/23/22 22:34 Blood Type O Negative 09/23/22 21:30 Rho(D) Type Negative 09/23/22 21:30 Antibody Screen Negative 09/23/22 21:30 Crossmatch See Detail 09/23/22 21:30 Vitals Last Vital Signs Temp 97.6 F 09/26/22 11:33 Pulse 106 H 09/26/22 11:33 Resp 16 09/26/22 11:33 BP 113/76 09/26/22 11:33 Pulse Ox 94 09/26/22 11:33 O2 Del Method Room Air 09/26/22 11:33 O2 Flow Rate 3 09/25/22 09:58 Discharge Plan Discharge Patient Disposition: Home Condition: Stable Prescriptions: New sucralfate 1 gram Tablet 1 g PO Q8H Qty: 120 0RF furosemide 20 mg tablet 20 mg PO QAM Qty: 30 0RF pantoprazole 40 mg tablet,delayed release (DR/EC) 40 mg PO BID Qty: 84 0RF ferrous sulfate [iron] 325 mg (65 mg iron) tablet 325 mg PO EVERY OTHER DAY Qty: 90 0RF Continued multivitamin Tablet 1 tab PO DAILY PRN (Reason: unknown) metoprolol tartrate 25 mg tablet 25 mg PO BID@,15 Discontinued amlodipine 5 mg tablet 5 mg PO DAILY PRN (Reason: blood pressure over 140) Aleve 220 mg Tablet 440 - 660 mg PO DAILY PRN (Reason: Pain) losartan 100 mg tablet 50 mg PO BID hydrochlorothiazide 12.5 mg tablet 12.5 mg PO QAM Eliquis 5 mg tablet 5 mg PO BID@,15 Discharge Orders: Discharge Order (Routine); Ordered 09/26/22 Ordered By: James Novoa Referrals: Osmar Villareal MD [Physician] - 1 month Gavino Louis MD [Primary Care Provider] - 10/06/22 3:55 pm [facility] [Provider Group] - 1 week (CHF) Discharge Diet: Cardiac and GI Soft Discharge Activity: Increase activity as tolerated Patient Instructions: Iron Supplements (By mouth), Heart Failure (GEN), Peptic Ulcer (GEN), Gastritis (GEN), Gastrointestinal Bleeding (GEN), Pleural Effusion (GEN), GI Discharge Instructions Activity Restrictions/Additional Instructions: Please stop taking Aleve and do not take any other NSAIDs. Please hold blood thinner medication for now, follow-up with your primary doctor for reassessment of blood counts at next appointment, discussed with your primary doctor when it may be safe to try to resume Eliquis for stroke risk reduction for atrial fibrillation versus consideration of other options. Please follow-up with your primary doctor regarding pleural effusions, have them reassess imaging to confirm resolution of fluid on your lungs. Continue Lasix for now for congestive heart failure. HCTZ for now is held. Have your primary doctor reassess volume status, congestive heart failure and adjust diuretics accordingly, and follow-up with cardiology. Blood pressure is noted fluctuating somewhat sometimes on the high side up into 160s systolic, other times on the low side 111/72. Please hold amlodipine, losartan for now. Measure blood pressures 2-3 times a day, write down values to bring to your appointment and discuss with your primary doctor whether your high blood pressure medications need to be restarted. Follow-up with surgery in office for reassessment to confirm healing of stomach inflammation and ulcers, and additional testing for H. pylori and consideration of biopsies. Seek medical attention in case of any worsening or new concerning symptoms. Discharge Attestations Time Spent in Discharge Care*: greater than 30 min Quality Metrics Clinical Quality Measures [ No reported AMI, CVA or VTE this stay] Coding Level of Care Code 34937 Total time (in minutes) for Discharge: 50 Diagnoses GI bleed K92.2 Anemia D64.9 Pleural effusion J90 Atrial fibrillation I48.91 Hip pain M25.559 Hypertension I10 Abnormal urinalysis R82.90
== END 2022-09-26 14:44 | disposition home or self-care (01) ==
LOC: ER 20:52 → MEDSURG 23:04
PROVIDERS: Emergency Medicine; Surgery; Admitting Provider Internal Medicine; Emergency Provider Emergency Medicine; PCP Family Medicine; Visit Provider Internal Medicine
PROC: 0DJ08ZZ Inspection of Upper Intestinal Tract, Via Natural or Artificial Opening Endoscopic (ICD-10-PCS; CPT 43235; principal; 2022-09-25 09:00)
DX: K25.4 Chronic or unspecified gastric ulcer with hemorrhage (principal); K29.81 Duodenitis with bleeding; K29.71 Gastritis, unspecified, with bleeding; K52.9 Noninfective gastroenteritis and colitis, unspecified; K57.30 Diverticulosis of large intestine without perforation or abscess without bleeding; D64.9 Anemia, unspecified; J90 Pleural effusion, not elsewhere classified; R82.90 Unspecified abnormal findings in urine; I48.91 Unspecified atrial fibrillation; I10 Essential (primary) hypertension; M25.59 Pain in other specified joint; Z79.01 Long term (current) use of anticoagulants; Z88.2 Allergy status to sulfonamides
CPT/HCPCS: 12345; 36415; 36430; 43235; 71045; 74177; 80048; 80053; 81001; 82728; 83540; 83550; 83735; 84100; 85018; 85025; 85610; 86850; 86900; 86920; 87086; 96361; 96365; 96375; 96376; 99254; 99285; C9113; G0378; J1940; J2704; J3475; J7030; J7040; P9016; Q9967

== ENCOUNTER → 2022-11-03 13:54 | Outpatient (BNVA) | payer MEDICARE, MEDICAID, SELFPAY | PROVIDERS: PCP Family Medicine; Visit Provider Internal Medicine Cardiovascular Disease | DX: I48.91 Unspecified atrial fibrillation (principal); Z79.01 Long term (current) use of anticoagulants; I11.0 Hypertensive heart disease with heart failure; I50.30 Unspecified diastolic (congestive) heart failure; R06.02 Shortness of breath; D64.9 Anemia, unspecified; K92.2 Gastrointestinal hemorrhage, unspecified; I35.0 Nonrheumatic aortic (valve) stenosis | CPT/HCPCS: 80048; 83880; 85025; 99205 ==

== ENCOUNTER 2022-11-13 14:35 | Outpatient (CLI) | payer MEDICARE, MEDICAID, SELFPAY ==
--- NOTE | 2022-11-13 15:00 | USCV_ITS ---
Wilbur Rosie Age: 82 Gender: F : 1940 Exam Date: 11/13/2022 15:27 Ordering Phys: Charly Gallegos MD ([email or web address]) Technologist: Sammie Altamirano [place] [facility] [place]: , CHF BP: 160 / 98 HR: 81 Rhythm: Other Technical Quality: Adequate MEASUREMENTS (Male / Female) Normal Values 2D ECHO LV Diastolic Diameter PLAX 4.0 cm 4.2 - 5.9 / 3.9 - 5.3 cm LV Systolic Diameter PLAX 2.7 cm IVS Diastolic Thickness 1.2 cm 0.6 - 1.0 / 0.6 - 0.9 cm IVS Systolic Thickness 1.1 cm LVPW Diastolic Thickness 1.2 cm 0.6 - 1.0 / 0.6 - 0.9 cm LVPW Systolic Thickness 1.4 cm LVOT Diameter 2.1 cm LV Ejection Fraction 2D Teich 62.2 % LV Ejection Fraction MOD 2C 67.7 % LV Ejection Fraction 2C AL 68.4 % LA Diameter 4.4 cm LA Width 4.1 cm LA Height 5.2 cm RA Width 4.0 cm RA Height 5.4 cm Aorta at Sinotubular Diameter 2.6 cm IVC Diameter 1.9 cm M-MODE Aortic Annulus Diameter 2.9 cm LA Ao Ratio MM 1.5 MV E Point Septal Separation 0.8 cm DOPPLER AV Peak Velocity 281.0 cm/s LVOT Peak Velocity 65.0 cm/s AV Area Cont Eq vti 0.9 cm squared AV Area Cont Eq pk 0.8 cm squared MV Peak Velocity 186.0 cm/s MV Area PHT 3.6 cm squared Mitral E to A Ratio 4.2 MV E' Velocity 75.2 cm/s Mitral E to MV E' Ratio 13.3 Mitral E to LV E' Lateral Ratio 17.3 Mitral E to LV E' Septal Ratio 10.8 TR Peak Velocity 297.0 cm/s TR Peak Gradient 35.3 mmHg Right Atrial Pressure 5.0 mmHg Pulmonary Artery Systolic Pressu 40.3 mmHg PV Peak Velocity 77.0 cm/s RV Acceleration Time 0.1 s RV Ejection Time 0.3 s RV AcT/ET 0.2 FINDINGS Left Ventricle Normal left ventricular size and systolic function, EF 61 %. Mild left ventricular hypertrophy. No regional wall motion abnormalities. Right Ventricle Normal right ventricular size and systolic function. Right Atrium Moderately increased right atrial size. Left Atrium Moderately increased left atrial size. Mitral Valve Thickened mitral valve. Moderate mitral annular calcification. Moderate mitral valve regurgitation. Aortic Valve Severe low gradient aortic valve stenosis with a valve area of 0.9 cm squared. Peak velocity 2.8 m/s with a peak gradient of 32 and a mean gradient of 17 mm Hg. Tricuspid Valve Mild tricuspid valve regurgitation. Estimated pulmonary artery peak systolic pressure 40 mmHg Pulmonic Valve No gross abnormalities noted Pericardium Normal pericardium without effusion. Aorta Normal aortic annulus size. IVC Normal inferior vena cava. CONCLUSIONS Normal left ventricular size and systolic function, EF 61 %. Mild left ventricular hypertrophy. No regional wall motion abnormalities. ModeratThickened mitral valve. Moderate mitral annular calcification. Moderate mitral valve regurgitation. Batrial enlargement. Severe low gradient aortic valve stenosis with a valve area of 0.9cm squared.-Peak velocity of 2.8 m/s with a peak gradient of 32 with amean gradieint of 17 mm Hg Estimated pulmonary artery peak systolic pressure 40 mmHg. There is no pericardial effusion. There are no intracardiac masses. Dr Charly Gallegos MD FAC (Electronically Signed) Final Date: 14 November 2022 16:33 S
== END 2022-11-13 14:36 | disposition home or self-care (01) ==
LOC: RAD 14:36
PROVIDERS: PCP Family Medicine; Visit Provider Internal Medicine Cardiovascular Disease
DX: I35.0 Nonrheumatic aortic (valve) stenosis (principal); R06.09 Other forms of dyspnea; I50.9 Heart failure, unspecified; I34.81 Nonrheumatic mitral (valve) annulus calcification
CPT/HCPCS: 93306

== ENCOUNTER → 2023-01-26 13:19 | Outpatient (BNVA) | payer MEDICARE, MEDICAID, SELFPAY | PROVIDERS: PCP Family Medicine; Visit Provider Nurse Practitioner Family | DX: I35.0 Nonrheumatic aortic (valve) stenosis (principal); I48.21 Permanent atrial fibrillation; I11.0 Hypertensive heart disease with heart failure; I50.30 Unspecified diastolic (congestive) heart failure; Z79.01 Long term (current) use of anticoagulants | CPT/HCPCS: 99214 ==

== ENCOUNTER → 2023-06-22 10:45 | Outpatient (BNVA) | payer MEDICARE, MEDICAID, SELFPAY | PROVIDERS: PCP Family Medicine; Visit Provider Internal Medicine Cardiovascular Disease | DX: I48.21 Permanent atrial fibrillation (principal); I11.0 Hypertensive heart disease with heart failure; I50.30 Unspecified diastolic (congestive) heart failure; I08.0 Rheumatic disorders of both mitral and aortic valves; Z79.01 Long term (current) use of anticoagulants | CPT/HCPCS: 99214 ==

== ENCOUNTER → 2024-07-11 11:12 | Outpatient (BNVA) | payer MEDICARE, MEDICAID, SELFPAY | PROVIDERS: PCP Family Medicine; Visit Provider Internal Medicine Cardiovascular Disease | DX: I48.21 Permanent atrial fibrillation (principal); Z79.01 Long term (current) use of anticoagulants; I11.0 Hypertensive heart disease with heart failure; I50.30 Unspecified diastolic (congestive) heart failure; I35.0 Nonrheumatic aortic (valve) stenosis; I34.0 Nonrheumatic mitral (valve) insufficiency | CPT/HCPCS: 36415; 80048; 83735; 83880; 99214 ==

== ENCOUNTER 2024-09-11 16:05 | Observation (INO) | payer OTHER, MEDICAID, SELFPAY ==
[2024-09-11 16:07] VITALS: BP 139/84; PULSE 69; RESP 18; TEMP 36.8; O2SAT 93; BMI 35.4
--- OUTSIDE RECORDS SUMMARY | 2024-09-11 16:10 | XMS_ITS | Data Portability ---
Author Organization [facility] Luis Obando [facility] Rodney Gramajo, [facility] Address [address] [facility] [address] [place] [address] Care Team Providers Care Parker Name Role Phone CYNTHIA LOUIS Primary Care Provider Unavailabl e Assessment No assessment recorded. Plan of Treatment Reminders Order Date Submit Date Provider Last Modified By Organization Details Last Modified Time Details Appointments OFFICE VISIT 15 2024 02:00P M Cynthia Louis MD Not available Not available Not available Lab None recorded. Referral None recorded. Procedures None recorded. Surgeries None recorded. Imaging None recorded. Medication Orders hydrocort isone 2.5 % topical cream 2023 024 [id number], [address] [facility] [address], [address], 07/17/2023 14:24:59 ferrous sulfate 325 mg (65 mg iron) tablet 2022 023 [id number] [address] [facility] [address], [address], 10/29/2022 16:02:23 Eliquis 5 mg tablet 2022 023 [id number] [address] [facility] [address], [address], 10/29/2022 16:05:30 Patient TargetsNo targets recorded. Patient InstructionsNo instructions recorded. Reason for Referral None Reported. Results Created Date Observation Date Name Description Value Unit Range Abnormal Flag Note LastModifiedBy Organization Detail LastModifiedTime 10/07/19 23 10/06/2022 CBC WBC 11.4 x10 4.0-10 .5 high Not Available [facility] [address], [place], [address], 10/06/2022 17:43:49 10/07/19 23 10/06/2022 CBC RBC 4.41 x10 3.50-5 .50 Not Available [facility] [address], [place], [address], 10/06/2022 17:43:49 10/07/19 23 10/06/2022 CBC HGB 10.3 g/dL 12.0-1 6.0 low Not Available [facility] [address] [facility] 1, [place], [address], 10/06/2022 17:43:49 10/07/19 23 10/06/2022 CBC HCT 32.8 % 37.0-4 7.0 low Not Available [facility] [address] [facility] [address] [address], [place], [address], 10/06/2022 17:43:49 10/07/19 23 10/06/2022 CBC MCV 74.4 fL 80.0-9 9.9 low Not Available [facility] [address] [facility] [address] [facility], [place], [address], 10/06/2022 17:43:49 10/07/19 23 10/06/2022 CBC MCH 23.4 pg 27.0-3 2.0 low Not Available [facility] [address] [facility] [address] [facility] [address], [place], [address], 10/06/2022 17:43:49 10/07/19 23 10/06/2022 CBC MCHC 31.4 g/dL 32.0-3 6.0 low Not Available [facility] [address] [facility], [place], [address], 10/06/2022 17:43:49 10/07/19 23 10/06/2022 CBC RDW 21.1 % 11.5-1 4.6 panic high Not Available [facility] [address] [facility] [address] [facility] [address], [place], [address], 10/06/2022 17:43:49 10/07/19 23 10/06/2022 CBC plt 267.7 x10 140.0- 451.0 Not Available [facility] [address] [facility] [address], [place], [address], 10/06/2022 17:43:49 10/07/19 23 10/06/2022 CBC lymphocytes % 29.7 % 20.0-5 0.0 Not Available [facility] [address] [facility] [address], [place], [address], 10/06/2022 17:43:49 10/07/19 23 10/06/2022 CBC granulcytes % 55.7 % 30.0-7 0.0 Not Available [facility] [address] [facility] 1, [place], [address], 10/06/2022 17:43:49 10/07/19 23 10/06/2022 CBC monocytes % 10.0 % 2.0-10 .0 Not Available [facility] [address] [facility] 1, [place], [address], 10/06/2022 17:43:49 10/07/19 23 10/06/2022 CBC granulcytes# 6.4 x10 Not Tressa ilable [facility] [address] [facility] 1, [place], [address], 10/06/2022 17:43:49 10/07/19 23 10/06/2022 CBC lymphocytes # 3.4 x10 Not Available [facility] [address] [facility] [address], [place], [address], 10/06/2022 17:43:49 10/07/19 23 10/06/2022 CBC monocytes # 1.1 x10 Not Avai lable [facility] [address] [facility] [address] [facility] [address], [place], [address], 10/06/2022 17:43:49 10/07/19 23 10/06/2022 CMP (FEMA LE) glucose 177.0 mg/dL 60.0-9 9.0 high Not Available [facility] [address] [facility] [address] [facility] 1, [place], [address], 10/06/2022 17:54:11 10/07/19 23 10/06/2022 CMP (FEMA LE) BUN (blood urea nitrogen) 14.0 mg/dL 10.0-2 6.0 Not Available [facility] [address] [facility] [address], [place], [address], 10/06/2022 17:54:11 10/07/19 23 10/06/2022 CMP (FEMA LE) creatinine (serum) 1.0 mg/dL 0.4-1. 5 Not Available [facility] [address] [facility] [address] [facility] 1, [place], [address], 10/06/2022 17:54:11 10/07/19 23 10/06/2022 CMP (FEMA LE) BUN/creatini ne ratio 14.00 ratio Not Available [facility] [address] [facility] [address] [facility] 1, [place], [address], 10/06/2022 17:54:11 10/07/19 23 10/06/2022 CMP (FEMA LE) eGFR calculated 56.3 Not Available [facility] [address] [facility] [address] [facility] 1, [place], [address], 10/06/2022 17:54:11 10/07/19 23 10/06/2022 CMP (FEMA LE) total protein 7.4 g/dL 6.0-8. 5 Not Available [facility] [address] [facility] [address] [facility] 1, [place], [address], 10/06/2022 17:54:11 10/07/19 23 10/06/2022 CMP (FEMA LE) total bilirubin 0.6 mg/dL 0.2-1. 3 Not Available [facility] [address] [facility] 1, [place], [address], 10/06/2022 17:54:11 10/07/19 23 10/06/2022 CMP (FEMA LE) albumin 5.0 g/dL 3.5-5. 5 Not Available [facility] [address] [facility], [place], [address], 10/06/2022 17:54:11 10/07/19 23 10/06/2022 CMP (FEMA LE) globulin 2.4 calc Not Available [facility] [address] [facility], [place], [address], 10/06/2022 17:54:11 10/07/19 23 10/06/2022 CMP (FEMA LE) AST (SGOT) 80.0 U/L 0.0-46 .0 high Not Available [facility] [address] [facility], [place], [address], 10/06/2022 17:54:11 10/07/19 23 10/06/2022 CMP (FEMA LE) altv (SGPT) 17.0 U/L 13.0-6 9.0 normal Not Available [facility] [address] [facility] 1, [place], [address], 10/06/2022 17:54:11 10/07/19 23 10/06/2022 CMP (FEMA LE) A/G ratio 2.1 ratio Not Available [facility] [address] [facility] [address] [facility] 1, [place], [address], 10/06/2022 17:54:11 10/07/19 23 10/06/2022 CMP (FEMA LE) ALP phos 56.0 U/L 30.0-1 40.0 normal Not Available [facility] [address] [facility] [address] [facility] 1, [place], [address], 10/06/2022 17:54:11 10/07/19 23 10/06/2022 CMP (FEMA LE) calcium 9.1 mg/dL 8.4-10 .5 Not Available [facility] [address] [facility] [address] [facility] 1, [place], [address], 10/06/2022 17:54:11 10/07/19 23 10/06/2022 CMP (FEMA LE) sodium 136.0 mmol/ L 136.0- 145.0 Not Available [facility] [address] [facility] [address] [facility] 1, [place], [address], 10/06/2022 17:54:11 10/07/19 23 10/06/2022 CMP (FEMA LE) potassium 3.8 mmol/ L 3.5-5. 1 Not Available [facility] [address] [facility], [place], [address], 10/06/2022 17:54:11 10/07/19 23 10/06/2022 CMP (FEMA LE) chloride 99.0 mmol/ L 98.0-1 10.0 normal Not Available [facility] [address] [facility] [address] [facility] 1, [place], [address], 10/06/2022 17:54:11 10/07/19 23 10/06/2022 CMP (FEMA LE) C02 23.0 mmol/ L 22.0-3 1.0 Not Available [facility] [address] [facility] [address], [place], [address], 10/06/2022 17:54:11 10/07/19 23 10/06/2022 CMP (FEMA LE) anion gap 14.0 calc Not Available [facility] [address] [facility] [address], [place], [address], 10/06/2022 17:54:11 10/07/19 23 10/06/2022 CMP (FEMA LE) osmolality 285.5 calc Not Available [facility] [address] [facility] [facility] [address], [place], [address], 10/06/2022 17:54:11 10/08/19 23 10/07/2022 HbA1c (hemo globi n A1c), blood HbA1c 6.2 Not Available [facility] [address] [place], [address], 10/07/2022 09:30:27 Result Notes None recorded. Problems Name Problem SNOMED Code Status Onset Date Resolution Date Notes Provider Name and Address Organization Details Recorded Time Atrial fibrillati on 75192378 Active 2022 Not Available [facility] 3 13:44:20 Malignant neoplasm of uterus 982119912 Completed 202207/04/2024 Cynthia Louis MD [address] [place], [address] , [facility], LGonzález 5 08:43:35 Essential hypertensi on 89072549 Active 2022 Not Available [facility] 3 13:44:20 Chronic cough 58244925 Active 2022 Not Available [facility] 3 13:44:20 Unsteady when walking 62385250 Active 2022 Not Available [facility] 3 13:44:20 Gastrointe stinal hemorrhage 49408906 Active 2022 Not Available [facility] 3 13:44:20 Anemia 417562625 Active 2022 Not Available [facility] 3 13:44:20 Pleural effusion 20289355 Active 2022 Not Available [facility] 3 13:44:20 Chronic low back pain 760431450 Active 2022 Not Available [facility] 3 13:44:20 Iron deficiency 29749167 Active 2022 Not Available [facility] 3 13:44:20 Actinic keratosis 639084911 Active 2023 Cynthia Louis MD [address] [place] [address], [address] , [facility] 4 15:36:43 Insect bite - wound 509731091 Active 2023 Cynthia Louis MD [address] [place] [address] , [facility] 4 14:24:28 Tear of skin 937400329 Active 2023 Cynthia Louis MD [address] [place] [address], [address] , [facility] 4 08:17:46 Senile asthenia 68799653 Active 2024 Cynthia Louis MD [address] [place] [address], [address] , [facility] 5 11:24:16 Anxiety 06174826 Active 2024 Cynthia Louis MD [address] [place] [address] , [facility] 5 11:24:27 Problem Notes None recorded. Procedures Surgical History Date Name Laterality Status Provider Name and Address Organization Details Recorded Time 04/08/19 24 jr cryo warts completed Cynthia Louis MD [address] [place] [address], [facility], L.LDemianCDemian 04/11/2023 15:36:33 Hysterectomy completed [facility], LDemianLDemianCDemian 10/29/2022 15:48:53 procedure on ovary completed JOSHUA COSTELLOY [facility], L.LDemianCDemian 10/29/2022 15:49:21 Imaging Results None recorded. Procedure Notes None recorded. Medical Equipment None Reported. Allergies Allergen ID Allergen Name Allergen Category Reaction Reaction Severity Criticality Documentation Date Start Date Code Code System Note Provider Name and Address Organization Details Recorded Time 2634 Substance with sulfonami de structure and antibacte rial mechanism of action (substanc e) medicatio n Not available Not available Not available 06/30/2022 33126 8003 SNOMED AGATHASA BOOTHE sarah [facility], L.LDemianCDemian 09:17:44 Medications Name Sig Start Date Stop Date Status Note LastModified by Organization Details LastModified Time sucralfat e 1 gram tablet TAKE ONE TABLET BY MOUTH EVERY 8 HOURS 10/29 completed Not Available Not Available Not Available lisinopri l 20 mg tablet Take 1 tablet every day by oral route. 06/30 completed Not Available Not Available Not Available chlorthal idone 25 mg tablet TAKE 1 TABLET BY MOUTH EVERY DAY 07/16 completed Not Available Not Available Not Available amlodipin e 5 mg tablet TAKE 1 TABLET BY MOUTH EVERY DAY 10/06 completed Not Available Not Available Not Available pantopraz ole 40 mg tablet,de layed release TAKE ONE TABLET BY MOUTH TWICE DAILY 04/08 completed Not Available Not Available Not Available ferrous sulfate 325 mg (65 mg iron) tablet TAKE 1 TABLET BY MOUTH EVERY DAY active Not Available Not Available No t Available metoprolo l tartrate 50 mg tablet TAKE 1 TABLET BY MOUTH EVERY 12 HOURS active Not Available Not Available No t Available hydrocort isone 2.5 % topical cream APPLY THIN COAT TO AFFECTED AREA TWICE A DAY active Not Available Not Available No t Available furosemid e 20 mg tablet TAKE 2 TABLETS BY MOUTH EVERY MORNING active Not Available Not Available No t Available losartan 100 mg tablet TAKE 1 TABLET BY MOUTH EVERY DAY 04/08 completed Not Available Not Available Not Available metoprolo l tartrate 25 mg tablet TAKE 1 TABLET BY MOUTH TWICE A DAY 04/08 completed Not Available Not Available Not Available lisinopri l daily 10/06 completed Recorded 03/31/19 23 2:57PM by Cynthia Louis MD, Office Visit; Refill Quantity : 90; Tablet; Not Available Not Available Not Available multivita min 1 tab everyday active Not Available Not Available No t Available hydrochlo rothiazid e 12.5 mg tablet TAKE 1 TABLET BY MOUTH EVERY DAY 04/08 completed Not Available Not Available Not Available amlodipin e besylate (bulk) daily 10/06 completed Recorded 03/31/19 23 2:56PM by Cytnhia Louis MD, Office Visit; Refill Quantity : 90; Tablet; Not Available Not Available Not Available Eliquis 5 mg tablet TAKE 1 TABLET BY MOUTH TWICE A DAY active Not Available Not Available No t Available Eliquis two times daily 10/06 completed Recorded 03/31/19 23 2:56PM by Cynthia Louis MD, Office Visit; Refill Quantity : 180; Tablet; Not Available Not Available Not Available Vitals Date Recorded Body height Body mass index (BMI) Body weight Body temperature Oxygen saturation Oxygen saturation in Arterial blood by Pulse oximetry Heart rate Systolic And Diastolic Provider Name and Address Organization Details Last Updated DateTime 4 162.56 cm 34.7 kg/m2 71484.6 6 g 97.6 [degF] 96 % 96 % 90 /min 132/84 mm[Hg] [facility] 4 15:15:17 Date Recorded Body height Body temperature Oxygen saturation Oxygen saturation in Arterial blood by Pulse oximetry Heart rate Body mass index (BMI) Body weight Systolic And Diastolic Provider Name and Address Organization Details Last Updated DateTime 5 162.56 cm 97.9 [degF] 98 % 98 % 77 /min 32.8 kg/m2 75630.1 4 g 134/84 mm[Hg] [facility] 5 14:25:26 Date Recorded Body height Body mass index (BMI) Body weight Body temperature Oxygen saturation Oxygen saturation in Arterial blood by Pulse oximetry Heart rate Systolic And Diastolic Provider Name and Address Organization Details Last Updated DateTime 4 162.56 cm 34.7 kg/m2 33794.6 6 g 97.5 [degF] 96 % 96 % 90 /min 134/84 mm[Hg] JOSHUA SCRUGGS [facility], LDemianLDemianCDemian 4 13:58:15 Date Recorded Body height Respiratory rate Body mass index (BMI) Body weight Body temperature Heart rate Oxygen saturation Oxygen saturation in Arterial blood by Pulse oximetry Systolic And Diastolic Provider Name and Address Organization Details Last Updated DateTime 3 162.56 cm 20 /min 33.5 kg/m2 43259.6 1 g 97.1 [degF] 78 /min 98 % 98 % 180/86 mm[Hg] AGATHA SHYANN [facility], L.LDemianCDemian 3 16:56:12 Date Recorded Body height Body mass index (BMI) Body weight Body temperature Oxygen saturation Oxygen saturation in Arterial blood by Pulse oximetry Heart rate Systolic And Diastolic Provider Name and Address Organization Details Last Updated DateTime 3 162.56 cm 33.6 kg/m2 37859.1 g 97.5 [degF] 97 % 97 % 87 /min 136/86 mm[Hg] JOSHUA SCRUGGS [facility], L.LDemianCDemian 3 15:41:30 Social History Question Answer Notes LastModified by Organizat ion Details LastModified Time Tobacco Smoking Status Never Smoker JOSHUA SCRUGGS [facility], L.LDemianCDemian 10/29/2022 15:45:47 Do You Have An Advance Directive? Yes Information not available 10/29/2022 Are You Blind Or Do You Have Difficulty Seeing? No Information not available 10/29/2022 What Is Your Level Of Caffeine Consumption? Occasional Information not available 10/29/2022 Are You Deaf Or Do You Have Serious Difficulty Hearing? No Information not available 10/29/2022 What Type Of Diet Are You Following? CARBOHYDRATE Information not available 10/29/2022 What Is The Highest Grade Or Level Of School You Have Completed Or The Highest Degree You Have Received? [id number] Information not available 10/29/2022 Which Of Your Hands Is Dominant? Right Information not available 10/29/2022 What Is Your Relationship Status? Single Information not available 10/29/2022 Do You Use Your Seat Belt Or Car Seat Routinely? Yes Information not available 10/29/2022 Have You Recently Traveled Abroad? No Information not available 10/29/2022 Are You Currently In School? No Information not available 10/29/2022 Sex: Unknown Functional Status Question Answer Note LastModified by Organizat ion Details LastModified Time What is your level of alcohol consumption? None Information not available 10/29/2022 Are you currently employed? No Information not available 10/29/2022 Are you able to walk? YESASSIST Information not available 10/29/2022 Are you able to care for yourself? Yes Information not available 10/29/2022 Do you have difficulty dressing or bathing? No Information not available 10/29/2022 Mental Status Question Answer Note LastModified by Organization D etails LastModified Time Do you have difficulty concentrating, remembering or making decisions? No Information no t available 10/29/2022 Family History Relationship Description Onset Age of this Age Resolved Age Notes LastModified by Organization Details LastModified Time Mother Malignant tumor of breast [place] Not available 2022 15:44:38 Maternal Grandfather Family history of Stomach cancer [place] Not available 2022 15:45:12 Medical History No medical history recorded. Gynecological HistoryNo gynecological history recorded. Obstetrics History GPAL:G 0 P 0 0 0 0 Immunizations Vaccine Type Date Status Note Provider Nam e and Address Organization Details Recorded Time Influenza, high-dose, quadrivalent, PF 2 completed AGATHA smith [facility], .L.CDemian 08/11/2022 18:11:59 COVID-19, mRNA, LNP-S, PF, 30 mcg/0.3 mL dose 1 completed AGATHA smith [facility] 08/11/2022 18:11:59 COVID-19, mRNA, LNP-S, PF, 30 mcg/0.3 mL dose 1 completed AGATHA smith [facility] 08/11/2022 18:11:59 Pneumococcal conjugate PCV20, polysaccharide VMV189 conjugate, adjuvant, PF 3 completed Not Available [facility] 06/28/2024 14:16:57 COVID-19, mRNA, LNP-S, PF, 50 mcg/0.5 mL 3 completed Not Available [facility] 06/28/2024 14:16:57 Past Encounters Encounter ID Performer Location Encounter Start Date Encounter Closed Date Diagnosis/Indication Diagnosis SNOMED-CT Code Diagnosis ICD10 Code Diagnosis Note [id number] Cynthia Louis MD [facility] ([facility]) [address] [place] [phone] 06/30/2022 14:43:40 06/30/2022 19:10:53 Essential hypertension 22813924 I10 Chronic cough 75336250 R 05.3 concerned this is related to lisinopril . We will change to ARB and f/u in 2--3 weeks. [id number] Cynthia Louis MD [facility] ([facility]) [address] [place] [phone] 07/16/2022 14:27:03 07/27/2022 19:37:31 Essential hypertension 10082070 I10 continue current meds. Patient will monitor blood pressure and report if unable to control or if they develop new symptoms. Unsteady when walking 22 905182 R26.89 Patient would benefit from PT. [id number] Cynthia Louis MD [facility] ([facility]) [address] [place] [phone] 10/06/2022 16:50:15 10/06/2022 19:13:55 Chronic low back pain 171408383 M54.50 Patient was encouraged to continue to not use naproxen as this probably contribute d to the patient's bleeding. Patient was instructed use Tylenol only. Discussed other interventi ons and topicals that she may use to help address her back pain. Patient has found that walking seems to help. Gastrointe stinal hemorrhage 16873968 K92.2 This has improved. We will check CBC today. Continue iron and PPI Pleural effusion 9877195 8 J90 Continue Lasix. Check CMP Atrial fibrillation 4943 6004 I48.91 We deshawn after discussion with the patient including risk and benefits of restarting Eliquis and the patient would like to restart. Once hemoglobin is determined to be stable we will restart the medication [id number] Cynthia Louis MD [facility] ([facility]) [address] [place] [phone] 5 10/29/2022 15:33:07 10/29/2022 18:34:11 Iron deficiency 07725897 E61.1 Continue iron supplement ation. Atrial fibrillation 4943 6004 I48.91 Patient is not having any bleeding issues after restarting Eliquis.. Refill provided today [id number] Cynthia Louis MD [facility] ([facility]) [address] [place] [id number] 5 04/08/2023 15:01:14 04/08/2023 15:52:03 Actinic keratosis 180424315 L57.0 Cryotherap y performed on the lesions. Chronic low back pain 27 2742685 M54.50 Atrial fibrillation 4943 6004 I48.91 Unsteady when walking 22 215260 R26.89 Iron deficiency 87974076 E61.1 [id number] Cynthia Louis MD [facility] ([facility]) [address] [place] [phone] 07/17/2023 13:47:56 07/17/2023 14:44:55 Insect bite - wound 242570305 T14.8XXA Papules are consistent with insect bites. Will start treatment with hydrocorti sone. Tear of skin 825564354 T 14.8XXA Wound is healing without any concerns today. Discussed wound care with the patient. [id number] Cynthia Louis MD [facility] ([facility]) [address] [place] [phone] 06/28/2024 14:15:14 06/28/2024 15:13:42 Atrial fibrillation 25114457 I48.91 Controlled on current medication s Essential hypertension 25566739 I10 continue current meds. Patient will monitor blood pressure and report if unable to control or if they develop new symptoms. Unsteady when walking 22 024664 R26.89 Concerned about the patient's unsteadine ss and decreased strength. Recommend the patient undergo physical therapy but the patient adamantly declines having home health come or to go to physical therapy themselves . States that she will do it on her own . Senile asthenia 59783466 R54 Anxiety 07381090 F41.9 Patient states that her anxiety is not bad enough that she needs to do medication at this time. Health Concerns Section Related Observation LastModified by Organization Detai ls LastModified Time None Recorded Concern Status LastModified by Organization Details LastModified Time None Recorded Advance Directives Directive Y: Payers Insurance Date Sequence Insurance Name Policy Number Policy Butts Covered Member ID Butts Member ID Guarantor Name 07/28/2024 1 [facility] (MEDICARE REPLACEMENT/A DVANTAGE - HMO) Rosie Bowles [id number] Rosie Bowles 07/28/2024 2 [facility] [place] DV[place] - [place]) Rosie Bowles [id number] Rosie Bowles 06/28/2024 2 [place] Rosie Bowles [id number] Roise Bowles 07/28/2024 [place] [facility] Rosie Bowles [id number] Rosie Bowles Notes Date Note Type Note Provider Name and Address Organization Details Recorded Time 10/06/2022 text/html This is an 82-year-old female that comes in today for hospital follow-up. The patient was admitted to the hospital for upper GI bleed. Patient was taking naproxen daily and in conjunction with her Eliquis had developed a upper GI bleed. After stopping Eliquis and starting PPI the patient's symptoms did improve and she denies any further bleeding today. Patient's blood pressure has been on the lower side so majority of her blood pressure medications have stopped. Incidentally they found bilateral pleural effusion and the patient was started on Lasix and this did improve. Patient has been tolerating the Lasix well. Cynthia Louis MD [address] [place] [address], [phone], [facility] 10/06/2022 17:48:23 10/29/2022 text/html This is an 82-year-old female who presents today for follow-up. Patient states that overall she feels better and less weak. She has no significant health concerns today. States that she needs refills on medications. No other concerns. Cynthia Louis MD [address] [place] [address], [phone], [facility], [facility] 10/30/2022 09:40:16 04/08/2023 text/html Pt is here to strong ve a spot on the left side of her face looked at. Cynthia Louis MD [address] [place] [address], [phone], [facility] 04/15/2023 10:59:00 07/17/2023 text/html General Rash/Ski n LesionReported bypatient.Location:c hest; abdomen; arm Quality:not painful;itchy Duration:has noted for 3-4 weeks Associated Symptoms:no fever; no cold symptoms; no nausea; no vomiting; no diarrhea This is a 39-year-old female that comes in today for evaluation of his skin tear on the left arm. Patient states that she had the chicken controlled fall onto her arm. This occurred approximately 3 days ago. Patient is also having itchy red papules on her chest abdomen and arms. Cynthia Louis MD [address] [place] [address], [phone], [facility] 07/19/2023 08:18:33 06/28/2024 text/html This is an 83-year-old female comes in today for evaluation. The patient has been having increasing issues with energy and ability to ambulate. Patient denies any falls. The patient states that she gets winded more easily. Patient said increased issues with anxiety especially with storms recently. Patient states that she is just not able to do the things she used to do to take care of herself. Family expresses concerns. Cynthia Louis MD [address] [place] [address], [phone], [facility], Rodney 06/30/2024 11:24:57 OBGyn Episode No OBEpisode recorded.
--- NOTE | 2024-09-11 16:33 | XRR_ITS ---
PROCEDURE INFORMATION: Exam: XR Chest Exam date and time: 09/11/2024 4:47 PM Age: 84 years old Clinical indication: Other: Weakness TECHNIQUE: Imaging protocol: Radiologic exam of the chest. Views: 1 view. COMPARISON: CR XR chest 1V portable [id number] 09/23/2022 9:25 PM FINDINGS: Lungs: Unremarkable. No consolidation. Pleural spaces: Unremarkable. No pleural effusion. No pneumothorax. Heart/Mediastinum: Unremarkable. No cardiomegaly. Bones/joints: Unremarkable. XR/XR chest 1V portable [id number] IMPRESSION: No acute findings.
--- NOTE | 2024-09-11 16:34 | ED_ITS ---
<Statement entered by Harpal Adam DO - 09/11/24 21:15> Patient seen and evaluated with the PA. Results reviewed. I was involved and agreed with all major medical decisions. Documented by User: MEHUL Granger 09/11/24 21:08 HPI - Weakness 2 General: Chief complaint: Nausea/Vomiting/Diarrhea Stated complaint: diarrhea Time Seen by Provider: 09/11/24 16:18 History of Present Illness: Patient is a 84-year-old female diagnosed with A-fib 3 years ago, on apixaban and metoprolol and permanent A-fib that presents to the emergency room due to weakness. Initially patient started having some diarrhea 1 month ago which she defines as daily loose stools. She has not followed up with her primary care physician regarding this issue. Today she has already had her loose stool and does not believe she can produce another 1. What has changed is she is very weak today. She does not have any nausea, or vomiting, no fever, no chills, however just difficulty even ambulating due to universal weakness. She further define this as when she put her close in the dryer she felt pretty well, when she went to go get her close out of the dryer she could not go to the dryer she was too weak. She denies any melena. Associated symptoms: Reports nausea; Denies chest pain, chills, easy bruising, fever(s), headache(s) or vomiting Related Data Home Medications ?Medication ?Instructions ?Recorded ?Confirmed multivitamin 1 tab PO DAILY PRN unknown 0 09/24/22 01/26/23 apixaban 5 mg tablet (Eliquis) 5 mg PO BID 11/03/22 Previous Rx's ?Medication ?Instructions ?Recorded ferrous sulfate 325 mg (65 mg 325 mg PO EVERY OTHER DA Y #90 tabs 09/26/22 iron) tablet (iron) furosemide 20 mg tablet See Rx Instructions .Route 1 04/21/23 .COMPLEX #180 tabs metoprolol tartrate 50 mg tablet See Rx Instructions . Route 02/19/24 .COMPLEX #180 tabs Allergies Allergy/AdvReac Type Severity Reaction Status Date / Time Sulfa (Sulfonamide Allergy ALGY-Difficulty Verified 07/11/24 10:12 Antibiotics) Breathing Review of Systems 2 General: Reports: 10 or more systems reviewed and unremarkable except in HPI and below Const: Reports: malaise; Denies: fever(s) or chills Eyes: Denies: eye discomfort or eye discharge ENMT: Denies: throat pain or mouth pain Card: Denies: chest pain or palpitations Resp: Denies: dyspnea or productive cough GI: Reports: nausea and change in stool character; Denies: abdominal pain or vomiting : Denies: flank pain or difficulty voiding Musc: Denies: neck pain, back pain, extremity pain or joint pain Skin/Breast: Denies: rash or pruritus Neuro: Reports: weakness in extremities; Denies: headache(s) or numbness in extremities Psych: Denies: anxiety or depression Jose Maria/Lymph: Denies: easy bruising or easy bleeding All/Imm: Denies: urticaria PFSH ED 2 PFSH: Medical History (Updated 09/11/24 @ 21:07 by MEHUL Granger) Hypertension Hip pain Atrial fibrillation with RVR Family History Brother Cancer Social History Smoking and tobacco/nicotine status: never used tobacco/nicotine Alcohol intake: never Substance/Drug Use: never Physical Exam 2 Lymph: LYMPHATIC: no lymphadenopathy noted Chest: COMMONS NORMALS: normal inspection of the chest and normal palpation of entire chest wall Cardio: HEART SOUNDS: Murmur heart sound present (c/w ) GI: RECTAL EXAM: sphincter tone abnormal, No heme positive stool, External hemorrhoid(s) present, Internal hemorrhoid(s) present, No Rectal prolapse, hemorrhoids Internal hemorrhoid(s): Yes and other (negative occult blood) : COMMON NORMALS: Yes no CVA tenderness BLADDER/KIDNEY EXAM: Yes no CVA tenderness Back/Pelvis: COMMON NORMALS: no CVA tenderness Psych: COMMON NORMALS: mental status grossly normal and Normal thought process present THOUGHT PROCESS: Normal thought process present Course 2 Consultations: Consultation #1: Discussed with Dr. Victor that accepts patient Consultation #2: Called Rebekah in the lab to discussed that only 1 unit at this time, recheck hemoglobin, and then further decision as per attending regarding additional unit Vital Signs: Vital signs: Vital Signs Temperature 97.9 F 09/11/24 19:56 Pulse Rate 75 09/11/24 19:56 Respiratory Rate 18 09/11/24 19:56 Blood Pressure 168/89 09/11/24 19:56 Pulse Oximetry 98 09/11/24 19:56 Oxygen Delivery Me thod Room Air 09/11/24 16:07 MDM - Weakness Medical Decision Making Patient is 84-year-old female with obvious murmur, and chart evaluation noted echocardiogram with severe aortic stenosis and 0.9 cm aortic valve. Occult blood is negative. Stool is brown on my view as well. Abdomen is benign. CT is benign. This appears consistent with aortic valve stenosis and the shear force associated with destruction of red blood cells. Discussed with Dr. Victor the recommended admission inpatient for weakness, anemia, 1 unit of packed red blood cells, and CSU. Lab Data 09/11/24 16:43 09/11/24 16:43 Radiology Impressions Chest X-Ray 09/11/24 16:33 IMPRESSION: No acute findings. Chest/Abdomen/Pelvis CTA 09/11/24 17:46 IMPRESSION: 1. No acute abdominal findings. 2. Cholelithiasis. 3. Diverticulosis without any evidence of acute diverticulitis. Impression. Laboratory Results WBC 3.58 10^3/uL (3.29-11.43) 09/11/24 16:43 RBC 3.35 10^6/uL (3.85-5.65) L 09/11/24 16:43 Hgb 6.80 g/dL (11.27-16.99) L 09/11/24 16:43 Hct 22.6 % (36-47) L 09/11/24 16:43 MCV 67.5 fl (85-98) L 09/11/24 16:43 MCH 20.3 pg (27-33) L 09/11/24 16:43 MCHC 30.1 g/dL (30-55) 09/11/24 16:43 RDW 19.8 % (12.1-15.1) H 09/11/24 16:43 Plt Count 275 10^3/cmm (157-399) 09/11/24 16:43 MPV 9.6 fL (7.4-10.4) 09/11/24 16:43 Neut % (Auto) 43.0 % 09/11/24 16:43 Lymph % (Auto) 27.1 % 09/11/24 16:43 Tyler % (Auto) 27.4 % 09/11/24 16:43 Eos % (Auto) 1.1 % 09/11/24 16:43 Baso % (Auto) 1.1 % 09/11/24 16:43 Neut # (Auto) 1.54 10^3/uL (1.8-7.7) L 09/11/24 16:43 Lymph # (Auto) 1.0 10^3/uL (0.8-4.8) 09/11/24 16:43 Tyler # (Auto) 1.0 10^3/uL (0.2-0.9) H 09/11/24 16:43 Eos # (Auto) 0.0 10^3/uL (0.0-0.8) 09/11/24 16:43 Baso # (Auto) 0.0 10^3/uL (0.0-0.1) 09/11/24 16:43 Nucleated RBC % (auto) 0 % 09/11/24 16:43 Nucleated RBCs # 0.0 /100WBC 09/11/24 16:43 Sodium 123 mmol/L (136-145) L 09/11/24 16:43 Potassium 4.2 mmol/L (3.5-5.1) 09/11/24 16:43 Chloride 88 mmol/L (98-107) L 09/11/24 16:43 Carbon Dioxide 20 mmol/L (22-29) L 09/11/24 16:43 Anion Gap 19.2 (5-19) H 09/11/24 16:43 BUN 14 mg/dL (8-23) 09/11/24 16:43 Creatinine 1.2 mg/dL (0.5-0.9) H 09/11/24 16:43 GFR Calculation Not Reportable 09/11/24 16:43 Glucose 106 mg/dL (65-115) 09/11/24 16:43 Calculated Osmolality 257 mOsm/kg (285-295) L 09/11/24 16:43 Lactic Acid 1.7 mmol/L (0.5-2.2) 09/11/24 16:43 Calcium 9.1 mg/dL (8.5-10.5) 09/11/24 16:43 Magnesium 2.1 mg/dL (1.7-2.3) 09/11/24 16:43 Total Bilirubin 0.6 mg/dL (0.15-1.2) 09/11/24 16:43 AST 17 U/L (0-32) 09/11/24 16:43 ALT 6 U/L (0-33) 09/11/24 16:43 Alkaline Phosphatase 49 U/L (35-105) 09/11/24 16:43 Total Protein 6.7 g/dL (6.6-8.7) 09/11/24 16:43 Albumin 4.1 g/dL (3.5-5.2) 09/11/24 16:43 Globulin 2.6 g/dL (1.3-4.6) 09/11/24 16:43 Lipase 27 U/L (13-60) 09/11/24 16:43 TSH 2.31 uIU/mL (0.27-4.20) 09/11/24 16:43 Urine Color Yellow (Yellow) 09/11/24 18:10 Urine Appearance Clear (CLEAR) 09/11/24 18:10 Urine pH 5.5 (5-7) 09/11/24 18:10 Ur Specific Hinkle 1.011 (1.005-1.030) 09/11/24 18:10 Urine Protein Negative (Negative) 09/11/24 18:10 Urine Glucose (UA) Negative (Normal) 09/11/24 18:10 Urine Ketones Negative (Negative) 09/11/24 18:10 Urine Blood Negative (Negative) 09/11/24 18:10 Urine Nitrate Negative (Negative) 09/11/24 18:10 Urine Bilirubin Negative (Negative) 09/11/24 18:10 Urine Urobilinogen 0.2 mg/dL (Negative) 09/11/24 18:10 Ur Leukocyte Esterase 1+ (Negative) A 09/11/24 18:10 Urine RBC 0-2 /hpf (0-2) 09/11/24 18:10 Urine WBC 0-5 /hpf (0-5) 09/11/24 18:10 Ur Squamous Epith Cells 0-5 /hpf (0-5) 09/11/24 18:10 Amorphous Sediment Not Reportable 09/11/24 18:10 Urine Bacteria None seen /hpf (NONE) 09/11/24 18:10 Hyaline Casts 4.52 /lpf 09/11/24 18:10 Ur Random Sodium 36 mmol/L 09/11/24 18:10 Influenza A (PCR) Negative (Negative) 09/11/24 16:49 Influenza Type B (PCR) Negative (Negative) 09/11/24 16:49 RSV (PCR) Negative (Negative) 09/11/24 16:49 SARS-CoV-2 (PCR) Negative (Negative) 09/11/24 16:49 Blood Type O Negative 09/11/24 18:18 Rho(D) Type Rh negative 09/11/24 18:18 Antibody Screen Negative 09/11/24 18:18 Crossmatch See Detail 09/11/24 18:18 All radiology interpretation(s) finalized by discharge ED provider radiology interpretation(s): no acute changes Discharge Plan Discharge Patient Disposition: Admitted As Inpatient Clinical Impression: Aortic stenosis, severe Anemia Qualifiers: 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, other Qualified Code(s): 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 Condition: Stable Discharge Diet: Low Salt Discharge Activity: Resume usual activity Coding Level of Care Code ED Assistant To The Dean for Chg Fwd Documented by User: Harpal Adam DO 09/11/24 20:37 HPI - Weakness 2 General: Chief complaint: Nausea/Vomiting/Diarrhea Stated complaint: diarrhea Time Seen by Provider: 09/11/24 16:18 Related Data Home Medications ?Medication ?Instructions ?Recorded ?Confirmed multivitamin 1 tab PO DAILY PRN unknown 0 09/24/22 01/26/23 apixaban 5 mg tablet (Eliquis) 5 mg PO BID 11/03/22 Previous Rx's ?Medication ?Instructions ?Recorded ferrous sulfate 325 mg (65 mg 325 mg PO EVERY OTHER DA Y #90 tabs 09/26/22 iron) tablet (iron) furosemide 20 mg tablet See Rx Instructions .Route 1 04/21/23 .COMPLEX #180 tabs metoprolol tartrate 50 mg tablet See Rx Instructions . Route 02/19/24 .COMPLEX #180 tabs Allergies Allergy/AdvReac Type Severity Reaction Status Date / Time Sulfa (Sulfonamide Allergy ALGY-Difficulty Verified 07/11/24 10:12 Antibiotics) Breathing PFSH ED 2 PFSH: Medical History (Updated 09/11/24 @ 21:07 by MEHUL Granger) Hypertension Hip pain Atrial fibrillation with RVR Family History Brother Cancer Social History Smoking and tobacco/nicotine status: never used tobacco/nicotine Alcohol intake: never Substance/Drug Use: never Physical Exam 2 Const: COMMON NORMALS: no acute distress, patient oriented x3, healthy appearing, alert and well nourished HENMT: COMMON NORMALS: normocephalic HEAD & SCALP: normocephalic Eye: COMMON NORMALS: EOMs intact bilaterally Neck/C-Spine: COMMON NORMALS: full ROM and supple Resp: COMMON NORMALS: normal respiratory effort, No retractions and clear to auscultation bilaterally AUSCULTATION: clear to auscultation bilaterally Cardio: COMMON NORMALS: regular rate, regular rhythm, No gallops present (Cardio) and No murmurs present (Cardio) RATE: regular rate RHYTHM: r egular rhythm GI: COMMON NORMALS: Soft to palpation and non-tender PALPATION: Yes Soft to palpation Extremity: GENERAL: Yes normal exam except as noted Neuro: COMMON NORMALS: patient oriented x3 SENSORIUM/ORIENTATION: Yes alert Skin: COMMON NORMALS: no rashes or lesions noted GENERAL SKIN EXAM: no rashes or lesions noted Course 2 Vital Signs: Vital signs: Vital Signs Temperature 97.9 F 09/11/24 19:56 Pulse Rate 75 09/11/24 19:56 Respiratory Rate 18 09/11/24 19:56 Blood Pressure 168/89 09/11/24 19:56 Pulse Oximetry 98 09/11/24 19:56 Oxygen Delivery Me thod Room Air 09/11/24 16:07 MDM - Weakness Lab Data 09/11/24 16:43 09/11/24 16:43 Radiology Impressions Chest X-Ray 09/11/24 16:33 IMPRESSION: No acute findings. Chest/Abdomen/Pelvis CTA 09/11/24 17:46 IMPRESSION: 1. No acute abdominal findings. 2. Cholelithiasis. 3. Diverticulosis without any evidence of acute diverticulitis. Impression. Laboratory Results WBC 3.58 10^3/uL (3.29-11.43) 09/11/24 16:43 RBC 3.35 10^6/uL (3.85-5.65) L 09/11/24 16:43 Hgb 6.80 g/dL (11.27-16.99) L 09/11/24 16:43 Hct 22.6 % (36-47) L 09/11/24 16:43 MCV 67.5 fl (85-98) L 09/11/24 16:43 MCH 20.3 pg (27-33) L 09/11/24 16:43 MCHC 30.1 g/dL (30-55) 09/11/24 16:43 RDW 19.8 % (12.1-15.1) H 09/11/24 16:43 Plt Count 275 10^3/cmm (157-399) 09/11/24 16:43 MPV 9.6 fL (7.4-10.4) 09/11/24 16:43 Neut % (Auto) 43.0 % 09/11/24 16:43 Lymph % (Auto) 27.1 % 09/11/24 16:43 Tyler % (Auto) 27.4 % 09/11/24 16:43 Eos % (Auto) 1.1 % 09/11/24 16:43 Baso % (Auto) 1.1 % 09/11/24 16:43 Neut # (Auto) 1.54 10^3/uL (1.8-7.7) L 09/11/24 16:43 Lymph # (Auto) 1.0 10^3/uL (0.8-4.8) 09/11/24 16:43 Tyler # (Auto) 1.0 10^3/uL (0.2-0.9) H 09/11/24 16:43 Eos # (Auto) 0.0 10^3/uL (0.0-0.8) 09/11/24 16:43 Baso # (Auto) 0.0 10^3/uL (0.0-0.1) 09/11/24 16:43 Nucleated RBC % (auto) 0 % 09/11/24 16:43 Nucleated RBCs # 0.0 /100WBC 09/11/24 16:43 Sodium 123 mmol/L (136-145) L 09/11/24 16:43 Potassium 4.2 mmol/L (3.5-5.1) 09/11/24 16:43 Chloride 88 mmol/L (98-107) L 09/11/24 16:43 Carbon Dioxide 20 mmol/L (22-29) L 09/11/24 16:43 Anion Gap 19.2 (5-19) H 09/11/24 16:43 BUN 14 mg/dL (8-23) 09/11/24 16:43 Creatinine 1.2 mg/dL (0.5-0.9) H 09/11/24 16:43 GFR Calculation Not Reportable 09/11/24 16:43 Glucose 106 mg/dL (65-115) 09/11/24 16:43 Calculated Osmolality 257 mOsm/kg (285-295) L 09/11/24 16:43 Lactic Acid 1.7 mmol/L (0.5-2.2) 09/11/24 16:43 Calcium 9.1 mg/dL (8.5-10.5) 09/11/24 16:43 Magnesium 2.1 mg/dL (1.7-2.3) 09/11/24 16:43 Total Bilirubin 0.6 mg/dL (0.15-1.2) 09/11/24 16:43 AST 17 U/L (0-32) 09/11/24 16:43 ALT 6 U/L (0-33) 09/11/24 16:43 Alkaline Phosphatase 49 U/L (35-105) 09/11/24 16:43 Total Protein 6.7 g/dL (6.6-8.7) 09/11/24 16:43 Albumin 4.1 g/dL (3.5-5.2) 09/11/24 16:43 Globulin 2.6 g/dL (1.3-4.6) 09/11/24 16:43 Lipase 27 U/L (13-60) 09/11/24 16:43 TSH 2.31 uIU/mL (0.27-4.20) 09/11/24 16:43 Urine Color Yellow (Yellow) 09/11/24 18:10 Urine Appearance Clear (CLEAR) 09/11/24 18:10 Urine pH 5.5 (5-7) 09/11/24 18:10 Ur Specific Hinkle 1.011 (1.005-1.030) 09/11/24 18:10 Urine Protein Negative (Negative) 09/11/24 18:10 Urine Glucose (UA) Negative (Normal) 09/11/24 18:10 Urine Ketones Negative (Negative) 09/11/24 18:10 Urine Blood Negative (Negative) 09/11/24 18:10 Urine Nitrate Negative (Negative) 09/11/24 18:10 Urine Bilirubin Negative (Negative) 09/11/24 18:10 Urine Urobilinogen 0.2 mg/dL (Negative) 09/11/24 18:10 Ur Leukocyte Esterase 1+ (Negative) A 09/11/24 18:10 Urine RBC 0-2 /hpf (0-2) 09/11/24 18:10 Urine WBC 0-5 /hpf (0-5) 09/11/24 18:10 Ur Squamous Epith Cells 0-5 /hpf (0-5) 09/11/24 18:10 Amorphous Sediment Not Reportable 09/11/24 18:10 Urine Bacteria None seen /hpf (NONE) 09/11/24 18:10 Hyaline Casts 4.52 /lpf 09/11/24 18:10 Ur Random Sodium 36 mmol/L 09/11/24 18:10 Influenza A (PCR) Negative (Negative) 09/11/24 16:49 Influenza Type B (PCR) Negative (Negative) 09/11/24 16:49 RSV (PCR) Negative (Negative) 09/11/24 16:49 SARS-CoV-2 (PCR) Negative (Negative) 09/11/24 16:49 Blood Type O Negative 09/11/24 18:18 Rho(D) Type Rh negative 09/11/24 18:18 Antibody Screen Negative 09/11/24 18:18 Crossmatch See Detail 09/11/24 18:18 Discharge Plan Discharge Patient Disposition: Admitted As Inpatient Clinical Impression: Aortic stenosis, severe Anemia Qualifiers: 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
--- NOTE | 2024-09-11 16:43 | ECG_ITS ---
[facility] Test Date: 2024-09-11 Pat Name: Rosie Bowles Department: Room: Gender: Female Dispensing Operator: : 1940 Requested By: Leah Sifuentes Order Number: [id number] Wanda MD: Charly Gallegos M.D. Measurements Intervals Sperry Rate: 73 P: 0 LA: 0 QRS: -65 QRSD: 100 T: -5 QT: 392 QTc: 433 Interpretive Statements ATRIAL FIBRILLATION WITH ABERRANT CONDUCTION OR VENTRICULAR PREMATURE COMPLEXES PATTERN CONSISTENT WITH PULMONARY DISEASE INCOMPLETE RIGHT BUNDLE BRANCH BLOCK [90+ ms QRS DURATION, TERMINAL R IN V1/V2, 40+ ms S IN I/aVL/V4/V5/V6] LEFT ANTERIOR FASCICULAR BLOCK [QRS AXIS <= -45, QR IN I, RS IN II] SEPTAL MYOCARDIAL INFARCTION , PROBABLY OLD [40+ ms Q WAVE IN V1/V2] INFERIOR MYOCARDIAL INFARCTION , PROBABLY OLD [40+ ms Q WAVE AND/OR ST/T ABNORMALITY IN II/aVF] Compared to ECG 12/24/2021 06:29:18.Ventricular premature complex(es) now present. Aberrant conduction of supraventricular beat(s) now present Atrial flutter no longer present. Myocardial infarct finding still present Electronically Signed On 09-11-2024 18:31:29 CDT by Charly Gallegos M.D. [email or web address]
[2024-09-11 17:06] LABS: Hematocrit 22.6 % (36-47); Hemoglobin 6.80 g/dL (11.27-16.99); Mean Corpuscular HGB Conc 30.1 g/dL (30-55); Mean Corpuscular Hemoglobin 20.3 pg (27-33); Mean Corpuscular Volume 67.5 fl (85-98); Nucleated Red Blood Cells % 0 %; Platelet Count 275 10^3/cmm (157-399); Red Blood Count 3.35 10^6/uL (3.85-5.65); White Blood Count 3.58 10^3/uL (3.29-11.43)
[2024-09-11 17:10] VITALS: BP 150/72; PULSE 74; O2SAT 96
[2024-09-11 17:22] LABS: Lactic Sepsis W/Reflex 1.7 mmol/L (0.5-2.2)
[2024-09-11 17:35] LABS: Alanine Aminotransferase 6 U/L (0-33); Albumin Level 4.1 g/dL (3.5-5.2); Alkaline Phosphatase 49 U/L (35-105); Anion Gap 19.2 (5-19); Aspartate Amino Transferase 17 U/L (0-32); Blood Urea Nitrogen 14 mg/dL (8-23); Calcium 9.1 mg/dL (8.5-10.5); Carbon Dioxide 20 mmol/L (22-29); Chloride 88 mmol/L (98-107); Creatinine Clr Calc Pharmacy 36.6464; Globulin 2.6 g/dL (1.3-4.6); Glucose 106 mg/dL (65-115); Lipase 27 U/L (13-60); Magnesium 2.1 mg/dL (1.7-2.3); Osmolality Calculated 257 mOsm/kg (285-295); Potassium 4.2 mmol/L (3.5-5.1); Sodium 123 mmol/L (136-145); Thyroid Stimulating Hormone 2.31 uIU/mL (0.27-4.20); Total Protein 6.7 g/dL (6.6-8.7)
[2024-09-11 17:40] VITALS: BP 175/71; PULSE 69; O2SAT 94
--- NOTE | 2024-09-11 17:46 | CTR_ITS ---
PROCEDURE INFORMATION: Exam: CTA Abdomen and Pelvis With Contrast Exam date and time: 09/11/2024 6:33 PM Age: 84 years old Clinical indication: Other: Anemic, HX of aortic stenosis; Prior surgery; Surgery date: 6+ months; Surgery type: Hyster; Additional info: Anemia, severe aortic stenosis TECHNIQUE: Imaging protocol: Computed tomographic angiography of the abdomen and pelvis with contrast. Exam focused on the arteries. 3D rendering (Not supervised by radiologist): MIP and/or 3D reconstructed images were created by the technologist. Radiation optimization: All CT scans at this facility use at least one of these dose optimization techniques: automated exposure control; mA and/or kV adjustment per patient size (includes targeted exams where dose is matched to clinical indication); or iterative reconstruction. Contrast material: OMNIPAQUE 350; Contrast volume: 100 ml; Contrast route: INTRAVENOUS (IV); COMPARISON: CT abdomen pelvis w con* [id number] 09/23/2022 9:42 PM RADIATION DOSE METRICS: Total DLP (mGy-cm): 1686.68 FINDINGS: Aorta: No aortic aneurysm. No aortic dissection. Celiac trunk and mesenteric arteries: Hepatic arteries are patent. Calcified and noncalcified plaques at the origin of the celiac and SMA arteries with mild stenosis. YARITZA is patent. Renal arteries: Noncalcified plaques and calcified plaques at the ostia of the right renal artery with moderate stenosis. Left renal artery is patent. Right iliac arteries: No occlusion or significant stenosis. Left iliac arteries: No occlusion or significant stenosis. Liver: No mass. Gallbladder and biliary ducts: Multiple calcified gallstones are present. Pancreas: Unremarkable. No mass. No ductal dilation. Spleen: Unremarkable. No splenomegaly. Adrenal glands: Unremarkable. No mass. Kidneys and ureters: Unremarkable. No solid mass. No hydronephrosis. Stomach and bowel: No bowel obstruction. Stomach is normal in appearance. No mucosal thickening. Scattered colonic diverticula without any evidence of acute diverticulitis. Appendix: No evidence of appendicitis. Intraperitoneal space: Unremarkable. No free air. No significant fluid collection. Lymph nodes: Unremarkable. No enlarged lymph nodes. Urinary bladder: Unremarkable. No mass. Reproductive: Unremarkable as visualized. Bones/joints: No acute fracture. Soft tissues: Unremarkable. COMMENTS: For detail findings of the chest please see same-day CT of the chest report. CT/CT ang miriam souza [id number] IMPRESSION: 1. No acute abdominal findings. 2. Cholelithiasis. 3. Diverticulosis without any evidence of acute diverticulitis. Impression.
[2024-09-11 17:47] LABS: Respiratory Syncytial Virus Ce NEGATIVE (Negative); SARS-CoV-2 PCR NEGATIVE (Negative)
[2024-09-11] MEDS: iohexol 350 mg/mL 500 mL Btl (per mL) IV (18:35)
[2024-09-11 19:04] LABS: Glucose Urine UA Negative (Normal); Nitrate Urine Negative (Negative); Specific Gravity, Urine 1.011 (1.005-1.030)
[2024-09-11 19:09] LABS: Add Urine Microscopic? YES
[2024-09-11 19:14] LABS: Urine Random Sodium 36 mmol/L
[2024-09-11 19:30] VITALS: BP 157/77; PULSE 73; RESP 18; TEMP 36.6; O2SAT 97
[2024-09-11 19:56] VITALS: BP 168/89; PULSE 75; RESP 18; TEMP 36.6; O2SAT 98
[2024-09-11 21:28] LABS: INR 1.88 (0.8-1.2); Prothrombin Time 22.80 SECONDS (12.1-14.9)
[2024-09-11 21:34] VITALS: BP 165/87; PULSE 80; RESP 18; TEMP 36.8; O2SAT 96
[2024-09-11] MEDS: pantoprazole 40 mg SDV 80 MG IVP (21:36)
[2024-09-11 21:43] LABS: NT Pro B Type Natriuretic Pept 8124 pg/mL (0-450); Procalcitonin 0.10 ng/mL (0-0.5); Thyroid Stimulating Hormone 2.30 uIU/mL (0.27-4.20)
[2024-09-11 21:47] LABS: Estmated Average Glucose 131; Hemoglobin A1C 6.2 % (4.0-6.0)
--- NOTE | 2024-09-11 21:47 | P.HP_ITS ---
Providers/Chief Complaint 2 Primary Care Provider: Gavino Louis MD Chief Complaint: diarrhea History of Present Illness Rosie Bowles is a 84 year old female with past medical history of atrial fibrillation on chronic anticoagulation with Eliquis, anemia, history of GI bleed with last EGD back in 2022 reported normal, diastolic heart failure, aortic valve stenosis presents to the ER today because of worsening generalized weakness which has been getting worse since May. Symptoms have been getting worse. Denies any nausea, vomiting, headache, chest pain, any limb weakness preferentially more than other, difficulty in breathing. Has been having occasional episodes of diarrhea. Have sometimes noticed bowel movements to be black and tarry in color with last tarry bowel movement 1 week ago. States she is able to take care of her needs at home but has been getting difficult, has been crawling out of bed. In the ER was found to have heart rate of 80 bpm, blood pressure 165 over 87 mmHg, 96% on room air. Review of Systems 2 General: Reports: 10 or more systems reviewed and unremarkable except in HPI and below Const: Reports: malaise; Denies: fever(s) or chills Eyes: Denies: photophobia, eye discomfort or eye discharge ENMT: Denies: throat pain, enlarged tonsils or mouth pain Card: Denies: chest pain or palpitations Resp: Denies: dyspnea or productive cough GI: Reports: nausea and change in stool character; Denies: abdominal pain or vomiting : Denies: flank pain or difficulty voiding Musc: Denies: neck pain, back pain, extremity pain, joint pain or joint warmth Skin/Breast: Denies: rash or pruritus Neuro: Reports: weakness in extremities; Denies: headache(s) or numbness in extremities Psych: Denies: anxiety or depression Jose Maria/Lymph: Denies: easy bruising or easy bleeding All/Imm: Denies: urticaria Medications/Allergies Home Medications ?Medication ?Instructions ?Recorded ?Confirmed ?Last Taken ?Type multivitamin 1 tab PO DAILY PRN unknown 0 09/24/22 01/26/23 Unknown History ferrous sulfate 325 mg (65 mg 325 mg PO EVERY OTHER DA Y #90 tabs 09/26/22 01/26/23 Unknown Rx iron) tablet (iron) apixaban 5 mg tablet (Eliquis) 5 mg PO BID 11/03/22 Unknown History furosemide 20 mg tablet See Rx Instructions .Route 1 04/21/23 Unknown Rx .COMPLEX #180 tabs metoprolol tartrate 50 mg tablet See Rx Instructions . Route 02/19/24 Unknown Rx .COMPLEX #180 tabs Allergies Allergy/AdvReac Type Severity Reaction Status Date / Time Sulfa (Sulfonamide Allergy ALGY-Difficulty Verified 07/11/24 10:12 Antibiotics) Breathing PFSH Acute 2 PFSH: Medical History (Updated 09/11/24 @ 23:16 by Jaxon Goddard MD) GI bleed Lower gastrointestinal hemorrhage Mitral regurgitation Aortic valve stenosis, nonrheumatic Hypertension Hip pain Atrial fibrillation with RVR Surgical History (Updated 09/11/24 @ 23:16 by Jaxon Goddard MD) H/O endoscopy Found to have significant gastritis, pyloric ulcer-10/15 Family History Brother Cancer Social History Smoking and tobacco/nicotine status: never used tobacco/nicotine Alcohol intake: never Substance/Drug Use: never Vitals/I&O/Wt Last Vital Signs Temp 98.2 F 09/11/24 21:34 Pulse 80 09/11/24 21:34 Resp 18 09/11/24 21:34 BP 165/87 09/11/24 21:34 Pulse Ox 96 09/11/24 21:34 O2 Del Method Room Air 09/11/24 21:34 09/11/24 09/11/24 09/11/24 06:59 14:59 22:59 Intake Total Balance Weight last 48 hrs Weight 90.718 kg Physical Exam 2 Narrative: General: No acute distress, AO x3, pleasant, pallor present HEENT: PERRLA, pupils bilaterally equal and reactive Chest: Normal vesicular breath sounds, no added sounds, equal good air entry bilaterally CVS: S1-S2 regular, ejection systolic murmur at aortic region radiated to carotids, 2/6, pansystolic murmur soft at apex radiating to anterior axillary line, no tachycardia, no gallops, no rubs Abdomen: Soft, nontender, no organomegaly, bowel sounds present Neuro: No focal deficits, no facial deformity, AO x3, power 5/5 in all limbs Data 09/11/24 16:43 09/11/24 16:43 A&P Assessment and plan 1. Generalized weakness: Most likely a combination of anemia with hemoglobin down to 6.8 along with hyponatremia. Cannot rule out in setting of worsening aortic stenosis. Continue to monitor. Physical therapy. 2. Acute on chronic anemia: Baseline hemoglobin seems to be around 9.8. Currently 6.8. Patient denies any active melena. Does give history of occasional soft black tarry movements with last episode 1 week ago. Bedside stool for occult blood negative. Check iron panel, vitamin B12 level, folate level, reticulocyte count, haptoglobin, LDH. Transfuse 1 unit of PRBC. Target hemoglobin more than 8. Will transfuse further accordingly. CBC follow consistent with severe iron deficiency anemia. Start on IV iron supplementation. Continue with Protonix 40 mg IV twice daily, Carafate ACHS. Check stool for occult blood. If positive will consult surgery for further evaluation. Did have endoscopy in 2022 which was consistent with severe gastritis, pyloric ulcer. 3. Hyponatremia: Cannot rule out acute on chronic. Last sodium level back in June 2024 130. Currently 123. Check urine lites. Patient euvolemic for now. Hold off on Lasix. Continue to monitor. 4. Acute kidney injury: Baseline creatinine 0.9. Currently 1.2. Could be in setting of excessive diuresis. For now hold off on diuretics. Medical reconciliation done for nephrotoxic drugs. Monitor BMP daily. 5. Aortic valve stenosis, nonrheumatic: Last echocardiogram from 11/15 showed EF 61%, mild LVH, no regional wall motion abnormality, severe low gradient aortic valve stenosis with valve area 0.9 with peak gradient of 32 across the valve, PASP of 40 mmHg. Recheck echocardiogram. Continue to monitor. 6. Diastolic heart failure: Currently euvolemic to slightly dehydrated. Hold off on diuretics. Takes Lasix 20 mg daily at home. Fluid restriction to less than 1500 cc. 7. Hypertension: Goal blood pressure less than 140/90 mmHg. Continue with metoprolol 50 mg twice daily. Uptitrate as per goal blood pressure if needed can switch from metoprolol to Coreg or add hydralazine versus amlodipine. Plan: Atrial fibrillation: Continue with home dose of metoprolol. Hold off on home dose of Eliquis given anemia. CODE STATUS: Discussed in detail with the patient. Her son will be the DPOA. Patient does not want any resuscitative measures. States she is 84 years of age and does not want any aggressive measures. Counseled her for possible need of TAVR. She states she does not want any open heart surgery but might be amenable to TAVR. DNR/DNI. Protonix 40 mg every 12 hourly to be sufficient for PUD prophylaxis SCD for DVT prophylaxis. PDMP PDMP Reviewed: Not Reviewed Attestations 2 Medical Necessity Statement*: Admission for more than 2 midnights for management of generalized weakness in setting of acute on chronic anemia, hyponatremia in a patient with history of severe aortic stenosis Diagnoses Generalized weakness R53.1 Acute on chronic anemia D64.9 Hyponatremia E87.1 Acute kidney injury N17.9 Aortic valve stenosis, nonrheumatic I35.0 Diastolic heart failure I50.30 Hypertension I10
[2024-09-11 22:14] LABS: Lactic Sepsis W/Reflex 1.4 mmol/L (0.5-2.2)
[2024-09-11 23:33] LABS: Iron 12 ug/dL (37-145); Total Iron Binding Capacity 456 mcg/dl; Unsaturated Iron Binding 444 ug/dL (112-347)
[2024-09-12] VITALS (13 sets, daily range): BP systolic 127–177; BP diastolic 56–83; PULSE 56–76; RESP 16–20; TEMP 36.1–36.8; O2SAT 94–99
[2024-09-12 04:40] LABS: Hematocrit 30.6 % (36-47); Hemoglobin 9.10 g/dL (11.27-16.99); Mean Corpuscular HGB Conc 29.7 g/dL (30-55); Mean Corpuscular Hemoglobin 22.0 pg (27-33); Mean Corpuscular Volume 74.1 fl (85-98); Nucleated Red Blood Cells % 0 %; Platelet Count 241 10^3/cmm (157-399); Red Blood Count 4.13 10^6/uL (3.85-5.65); White Blood Count 5.65 10^3/uL (3.29-11.43)
[2024-09-12 04:48] LABS: Alanine Aminotransferase 6 U/L (0-33); Albumin Level 3.9 g/dL (3.5-5.2); Alkaline Phosphatase 46 U/L (35-105); Anion Gap 17.9 (5-19); Aspartate Amino Transferase 18 U/L (0-32); Blood Urea Nitrogen 13 mg/dL (8-23); Calcium 8.0 mg/dL (8.5-10.5); Carbon Dioxide 21 mmol/L (22-29); Chloride 89 mmol/L (98-107); Creatinine Clr Calc Pharmacy 39.9779; Globulin 2.8 g/dL (1.3-4.6); Glucose 108 mg/dL (65-115); Magnesium 2.1 mg/dL (1.7-2.3); Osmolality Calculated 259 mOsm/kg (285-295); Potassium 3.9 mmol/L (3.5-5.1); Sodium 124 mmol/L (136-145); Total Protein 6.7 g/dL (6.6-8.7)
[2024-09-12 05:04] LABS: Cholesterol 93 mg/dL (0-200); HDL Cholesterol 26 mg/dL (60-100); Triglycerides 109 mg/dL (0-150)
[2024-09-12 05:11] LABS: Procalcitonin 0.10 ng/mL (0-0.5)
--- NOTE | 2024-09-12 07:08 | PC.NURSE ---
THIS NURSE ASSUMED CARE @ 0700. PATIENT RESTING IN BED WITH EYE CLOSED. EVEN AND UNLABORED RESPIRATIONS, VITAL SIGNS WNL.
[2024-09-12] MEDS: iron sucrose 200 MG in sodium chloride 0.9% (100 ml) 100 ML 220 MG IV (07:50)
[2024-09-12] MEDS: pantoprazole 40 mg SDV IVP ×2 (08:36→20:55)
--- NOTE | 2024-09-12 13:36 | P.PN_ITS ---
Subjective 2 Subjective: No acute events overnight. Today morning patient laying comfortably in bed. States she is feeling better. Denies any nausea, vomiting, headache. Remains on room air. Blood pressure stable. Patient seen in ER as awaiting bed to be transferred to [facility]. Vitals/I&O/Wt Last Vital Signs Temp 98.1 F 09/12/24 04:00 Pulse 62 09/12/24 12:00 Resp 16 09/12/24 12:00 BP 127/65 09/12/24 12:00 Pulse Ox 98 09/12/24 12:00 O2 Del Method Room Air 09/12/24 08:12 09/11/24 09/12/24 09/12/24 22:59 06:59 14:59 Intake Total 250 / 250 250 / 500 110 / 110 Balance 250 / 250 250 / 500 110 / 110 Weight last 48 hrs Weight 90.718 kg Physical Exam 2 Narrative: General: No acute distress, AO x3, pleasant, pallor present HEENT: PERRLA, pupils bilaterally equal and reactive Chest: Normal vesicular breath sounds, no added sounds, equal good air entry bilaterally CVS: S1-S2 regular, ejection systolic murmur at aortic region radiated to carotids, 2/6, pansystolic murmur soft at apex radiating to anterior axillary line, no tachycardia, no gallops, no rubs Abdomen: Soft, nontender, no organomegaly, bowel sounds present Neuro: No focal deficits, no facial deformity, AO x3, power 5/5 in all limbs Data 09/12/24 04:25 09/12/24 04:25 A&P Assessment and plan 1. Generalized weakness: Most likely a combination of anemia with hemoglobin down to 6.8 along with hyponatremia. Cannot rule out in setting of worsening aortic stenosis. Continue to monitor. Physical therapy evaluation pending. 2. Acute on chronic anemia: Baseline hemoglobin seems to be around 9.8. Currently 6.8. Patient denies any active melena. Does give history of occasional soft black tarry movements with last episode 1 week ago. Bedside stool for occult blood negative. Appreciate iron panel, vitamin B12 level, folate level, reticulocyte count, haptoglobin, LDH. Post transfusion with 1 unit of PRBC. Target hemoglobin more than 8. Will transfuse further accordingly. Continue with iron supplementation. Continue with Protonix 40 mg IV twice daily, Carafate ACHS. Stool for occult blood pending. If positive will consult surgery for further evaluation. Did have endoscopy in 2022 which was consistent with severe gastritis, pyloric ulcer. 3. Hyponatremia: Cannot rule out acute on chronic. Last sodium level back in June 2024 130. Continue to monitor. Normal saline at 50 cc/h for 500 cc overall. Watch for fluid overload. Patient euvolemic for now. Hold off on Lasix. Continue to monitor. 4. Acute kidney injury: Baseline creatinine 0.9. Slight improvement to 1.1. Could be in setting of excessive diuresis. For now hold off on diuretics. Medical reconciliation done for nephrotoxic drugs. Monitor BMP in afternoon. 5. Aortic valve stenosis, nonrheumatic: Last echocardiogram from 11/15 showed EF 61%, mild LVH, no regional wall motion abnormality, severe low gradient aortic valve stenosis with valve area 0.9 with peak gradient of 32 across the valve, PASP of 40 mmHg. Echocardiogram pending. Continue to monitor. 6. Diastolic heart failure, unspecified HF chronicity: Currently euvolemic to slightly dehydrated. Hold off on diuretics. Takes Lasix 20 mg daily at home. Fluid restriction to less than 1500 cc. 7. Primary hypertension: Goal blood pressure less than 140/90 mmHg. Continue with metoprolol 50 mg twice daily. Uptitrate as per goal blood pressure if needed can switch from metoprolol to Coreg or add hydralazine versus amlodipine. Plan: Atrial fibrillation: Continue with home dose of metoprolol. Hold off on home dose of Eliquis given anemia. CODE STATUS: Discussed in detail with the patient. Her son will be the DPOA. Patient does not want any resuscitative measures. States she is 84 years of age and does not want any aggressive measures. Counseled her for possible need of TAVR. She states she does not want any open heart surgery but might be amenable to TAVR. DNR/DNI. Protonix 40 mg every 12 hourly to be sufficient for PUD prophylaxis SCD for DVT prophylaxis. Clear liquid diet. PDMP PDMP Reviewed: Not Reviewed Attestations 2 Medical Necessity Statement*: Requires further hospitalization for management of generalized weakness in setting of acute anemia post blood transfusion, hyponatremia in a patient with history of severe aortic stenosis Diagnoses Generalized weakness R53.1 Acute on chronic anemia D64.9 Hyponatremia E87.1 Acute kidney injury N17.9 Aortic valve stenosis, nonrheumatic I35.0 Diastolic heart failure, unspecified HF chronicity I50.30 Heart failure chronicity: unspecified Primary hypertension I10 Hypertension type: primary hypertension
[2024-09-12 16:07] LABS: Anion Gap 20.1 (5-19); Blood Urea Nitrogen 11 mg/dL (8-23); Calcium 8.6 mg/dL (8.5-10.5); Carbon Dioxide 19 mmol/L (22-29); Chloride 92 mmol/L (98-107); Creatinine Clr Calc Pharmacy 48.8618; Glucose 172 mg/dL (65-115); Osmolality Calculated 267 mOsm/kg (285-295); Potassium 4.1 mmol/L (3.5-5.1); Sodium 127 mmol/L (136-145)
--- NOTE | 2024-09-12 16:27 | PC.NURSE ---
Patient transferred from ED to [facility]SU at 1615 via a bed.
--- NOTE | 2024-09-12 21:03 | USCV_ITS ---
Rosie Bowles Age: 84 Gender: F : 1940 Exam Date: 09/12/2024 08:11 Ordering Phys: Jaxon Goddard MD Technologist: Exam Location: [facility] – [place] Indication: as BP: 130 / 74 HR: 132 Rhythm: Sinus Technical Quality: Adequate MEASUREMENTS (Male / Female) Normal Values 2D ECHO LV Diastolic Diameter PLAX 4.3 cm 4.2 - 5.9 / 3.9 - 5.3 cm IVS Diastolic Thickness 1.4 cm 0.6 - 1.0 / 0.6 - 0.9 cm IVS Systolic Thickness 1.8 cm LVPW Diastolic Thickness 1.3 cm 0.6 - 1.0 / 0.6 - 0.9 cm LVPW Systolic Thickness 1.3 cm LVOT Diameter 2.1 cm LV Ejection Fraction 2D Teich 63.2 % LV Ejection Fraction MOD 4C 59.9 % LV Ejection Fraction MOD 2C 65.7 % LV Ejection Fraction 2C AL 66.2 % LA Diameter 4.8 cm RA Systolic Volume 4C AL 81.2 ml RA Systolic Volume 4C MOD 78.2 ml LA Sys Volume AL 71.0 cm cubed LA Sys Volume Index AL 36.4 cm cubed/m squared Aorta at Sinotubular Diameter 3.3 cm IVC Diameter 2.4 cm M-MODE LA Ao Ratio MM 1.6 AV Cusp Separation MM 0.9 cm DOPPLER AV Peak Velocity 335.3 cm/s LVOT Peak Velocity 88.0 cm/s AV Area Cont Eq vti 0.9 cm squared AV Area Cont Eq pk 0.9 cm squared MV Peak Velocity 193.0 cm/s TV Peak Velocity 332.0 cm/s TR Peak Velocity 383.0 cm/s TR Peak Gradient 58.7 mmHg TV Peak E Velocity 106.0 cm/s PV Peak Velocity 91.0 cm/s FINDINGS Left Ventricle Left ventricle is normal in size. LV systolic function is normal with EF of 55-60%. No regional wall motion abnormalities are seen Right Ventricle Normal in size and function Right Atrium Dilated Left Atrium Dilated Mitral Valve Moderate mitral annular calcification. Mild mitral regurgitation Aortic Valve Aortic valve is thickened and calcified. Moderate to severe aortic stenosis with aortic valve area of 0.93 cm squared and mean gradient of 23 mmHg. Tricuspid Valve Mild tricuspid regurgitation. RVSP is 55- 60 mmHg. This is consistent with the moderate pulmonary hypertension. Pulmonic Valve Mild pulmonic regurgitation Pericardium Normal Aorta Normal in size IVC Not well visualized CONCLUSIONS LV systolic function is normal with EF of 55-60% Biatrial dilation Mild mitral regurgitation Moderate to severe aortic stenosis. Mild tricuspid regurgitation. Moderate pulmonary hypertension Mild pulmonic regurgitation Compared to prior echocardiogram from 2022, no significant changes are seen Willis Cunha MD (Electronically Signed) Final Date: 12 September 2024 16:49 S
[2024-09-13 00:47] VITALS: BP 122/66; PULSE 67; RESP 17; TEMP 36.8; O2SAT 95
[2024-09-13 03:58] LABS: Hematocrit 29.6 % (36-47); Hemoglobin 9.10 g/dL (11.27-16.99); Mean Corpuscular HGB Conc 30.7 g/dL (30-55); Mean Corpuscular Hemoglobin 22.2 pg (27-33); Mean Corpuscular Volume 72.4 fl (85-98); Nucleated Red Blood Cells % 0 %; Platelet Count 203 10^3/cmm (157-399); Red Blood Count 4.09 10^6/uL (3.85-5.65); White Blood Count 4.75 10^3/uL (3.29-11.43)
[2024-09-13 04:25] LABS: Alanine Aminotransferase 9 U/L (0-33); Albumin Level 3.7 g/dL (3.5-5.2); Alkaline Phosphatase 46 U/L (35-105); Anion Gap 17.7 (5-19); Aspartate Amino Transferase 20 U/L (0-32); Blood Urea Nitrogen 8 mg/dL (8-23); Calcium 8.5 mg/dL (8.5-10.5); Carbon Dioxide 20 mmol/L (22-29); Chloride 100 mmol/L (98-107); Creatinine Clr Calc Pharmacy 48.4694; Globulin 2.8 g/dL (1.3-4.6); Glucose 75 mg/dL (65-115); Magnesium 2.3 mg/dL (1.7-2.3); Osmolality Calculated 275 mOsm/kg (285-295); Potassium 3.7 mmol/L (3.5-5.1); Sodium 134 mmol/L (136-145); Total Protein 6.5 g/dL (6.6-8.7)
--- NOTE | 2024-09-13 04:25 | PC.NURSE ---
2200- Patient c/o itching to scabs on face and left shoulder blade. Per patient this is shingles and has been getting treated. Requesting something to help alleviate itchiness. Received orders from Dr. Antonio for 25 mg Benadryl PO once.
[2024-09-13 04:34] VITALS: BP 115/68; PULSE 67; RESP 17; TEMP 36.6; O2SAT 94
[2024-09-13 04:47] VITALS: PULSE 70
[2024-09-13] MEDS: iron sucrose 200 MG in sodium chloride 0.9% (100 ml) 100 ML 220 MG IV (07:00)
[2024-09-13 08:00] VITALS: BP 146/78; PULSE 75; RESP 18; TEMP 36.5; O2SAT 96
--- NOTE | 2024-09-13 09:28 | P.DS_ITS ---
Discharge Providers Date of Admission: 09/11/24 20:58 Date of Discharge: September 13, 2024 Attending Provider at Admission: Jaxon Goddard MD Attending Provider at Discharge: Jaxon Goddard MD Primary Care Provider: Gavino Louis MD Diagnoses at Discharge Discharge Diagnosis 1. Generalized weakness: 2. Acute on chronic anemia: 3. Hyponatremia: 4. Acute kidney injury: 5. Aortic valve stenosis, nonrheumatic: 6. Diastolic heart failure, unspecified HF chronicity: 7. Primary hypertension: Reason for Visit Reason for Visit: diarrhea Hospital Course Hospital Course Rosie Bowles is a 84 year old female with past medical history of atrial fibrillation on chronic anticoagulation with Eliquis, anemia, history of GI bleed with last EGD back in 2022 reported normal, diastolic heart failure, aortic valve stenosis presents to the ER today because of worsening generalized weakness which has been getting worse since May. Symptoms have been getting worse. Denies any nausea, vomiting, headache, chest pain, any limb weakness preferentially more than other, difficulty in breathing. Has been having occasional episodes of diarrhea. Have sometimes noticed bowel movements to be black and tarry in color with last tarry bowel movement 1 week ago. States she is able to take care of her needs at home but has been getting difficult, has been crawling out of bed. In the ER was found to have heart rate of 80 bpm, blood pressure 165 over 87 mmHg, 96% on room air. Patient was under the ER for further evaluation and management of generalized weakness in setting of dehydration leading to hyponatremia, anemia. Stool for occult blood in the ER was negative. She required 1 unit of blood transfusion. Hemoglobin posttransfusion remained stable. She was found to have severe iron deficiency anemia. Her diuresis was withheld and her sodium levels improved by themselves. She worked well with physical therapy. Repeat echocardiogram was done which showed normal EF with biatrial dilatation, moderate to severe aortic stenosis. She has been discharged in medically stable condition with advice to change lifestyle as per diastolic heart failure. She is to follow-up with a primary care provider within next 1 week for repeat CBC and BMP. Discharge Data Studies Completed and Pending Completed Studies During Hospitalization Category Date Time Status CTA chest abdomen pelvis [CT ang ches abdpel [id number]/ Cat Scan 09/11/24 17:46 Completed [id number]] Stat XR chest 1V portable [id number] Stat Exams 09/11/24 16:33 Completed CV. echo complete* [id number] Routine Ultrasound 09/12/24 21:03 Completed Pending at discharge Category Date Time Status Complete Blood Count w/Auto AM LABS Lab 09/14/24 04:00 Ordered Comprehensive Metabolic Panel AM LABS Lab 09/14/24 04:00 Ordered Magnesium AM LABS Lab 09/14/24 04:00 Ordered Occult Blood Stool [Immunochemical Fecal OCB] Routine Lab 09/12/24 02:56 Ordered Phosphorus AM LABS Lab 09/14/24 04:00 Ordered Radiology Impressions Chest X-Ray 09/11/24 16:33 IMPRESSION: No acute findings. Chest/Abdomen/Pelvis CTA 09/11/24 17:46 IMPRESSION: 1. No acute abdominal findings. 2. Cholelithiasis. 3. Diverticulosis without any evidence of acute diverticulitis. Echocardiogram: CONCLUSIONS LV systolic function is normal with EF of 55-60% Biatrial dilation Mild mitral regurgitation Moderate to severe aortic stenosis. Mild tricuspid regurgitation. Moderate pulmonary hypertension Mild pulmonic regurgitation Compared to prior echocardiogram from 2022, no significant changes are seen Willis Cunha MD (Electronically Signed) Final Date: 12 September 2024 Laboratory Results WBC 4.75 10^3/uL (3.29-11.43) 09/13/24 03:33 RBC 4.09 10^6/uL (3.85-5.65) 09/13/24 03:33 Hgb 9.10 g/dL (11.27-16.99) L 09/13/24 03:33 Hct 29.6 % (36-47) L 09/13/24 03:33 MCV 72.4 fl (85-98) L 09/13/24 03:33 MCH 22.2 pg (27-33) L 09/13/24 03:33 MCHC 30.7 g/dL (30-55) 09/13/24 03:33 RDW 22.1 % (12.1-15.1) H 09/13/24 03:33 Plt Count 203 10^3/cmm (157-399) 09/13/24 03:33 MPV 9.2 fL (7.4-10.4) 09/13/24 03:33 Neut % (Auto) 44.0 % 09/13/24 03:33 Lymph % (Auto) 31.4 % 09/13/24 03:33 Delta % (Auto) 21.5 % 09/13/24 03:33 Eos % (Auto) 2.1 % 09/13/24 03:33 Baso % (Auto) 0.8 % 09/13/24 03:33 Reticulocyte % (Auto) 1.8 % (0.5-2.0) 09/11/24 16:43 Neut # (Auto) 2.09 10^3/uL (1.8-7.7) 09/13/24 03:33 Lymph # (Auto) 1.5 10^3/uL (0.8-4.8) 09/13/24 03:33 Delta # (Auto) 1.0 10^3/uL (0.2-0.9) H 09/13/24 03:33 Eos # (Auto) 0.1 10^3/uL (0.0-0.8) 09/13/24 03:33 Baso # (Auto) 0.0 10^3/uL (0.0-0.1) 09/13/24 03:33 Nucleated RBC % (auto) 0 % 09/13/24 03:33 Nucleated RBCs # 0.0 /100WBC 09/13/24 03:33 Haptoglobin 100.0 mg/L (30-200) 09/11/24 16:43 PT 22.80 SECONDS (12.1-14.9) H 09/11/24 16:43 INR 1.88 (0.8-1.2) H 09/11/24 16:43 Sodium 134 mmol/L (136-145) L 09/13/24 03:33 Potassium 3.7 mmol/L (3.5-5.1) 09/13/24 03:33 Chloride 100 mmol/L (98-107) 09/13/24 03:33 Carbon Dioxide 20 mmol/L (22-29) L 09/13/24 03:33 Anion Gap 17.7 (5-19) 09/13/24 03:33 BUN 8 mg/dL (8-23) 09/13/24 03:33 Creatinine 0.9 mg/dL (0.5-0.9) 09/13/24 03:33 GFR Calculation Not Reportable 09/13/24 03:33 Glucose 75 mg/dL (65-115) 09/13/24 03:33 POC Glucose 90 mg/dL (70-110) 09/13/24 06:10 Estimat Average Glucose 131 09/11/24 16:43 Hemoglobin A1c 6.2 % (4.0-6.0) H 09/11/24 16:43 Calculated Osmolality 275 mOsm/kg (285-295) L 09/13/24 03:33 Lactic Acid 1.4 mmol/L (0.5-2.2) 09/11/24 21:47 Calcium 8.5 mg/dL (8.5-10.5) 09/13/24 03:33 Phosphorus 3.1 mg/dL (2.5-4.5) 09/13/24 03:33 Magnesium 2.3 mg/dL (1.7-2.3) 09/13/24 03:33 Iron 12 ug/dL (37-145) L 09/11/24 16:43 TIBC 456 mcg/dl 09/11/24 16:43 % Saturation 2.6 % (20-50) L 09/11/24 16:43 Unsat Iron Binding 444 ug/dL (112-347) H 09/11/24 16:43 Total Bilirubin 1.0 mg/dL (0.15-1.2) 09/13/24 03:33 AST 20 U/L (0-32) 09/13/24 03:33 ALT 9 U/L (0-33) 09/13/24 03:33 Alkaline Phosphatase 46 U/L (35-105) 09/13/24 03:33 Lactate Dehydrogenase 164 U/L (135-214) 09/11/24 16:43 NT-Pro-B Natriuret Pep 8124 pg/mL (0-450) H 09/11/24 16:43 Total Protein 6.5 g/dL (6.6-8.7) L 09/13/24 03:33 Albumin 3.7 g/dL (3.5-5.2) 09/13/24 03:33 Globulin 2.8 g/dL (1.3-4.6) 09/13/24 03:33 Triglycerides 109 mg/dL (0-150) 09/12/24 04:25 Cholesterol 93 mg/dL (0-200) 09/12/24 04:25 LDL Cholesterol, Calc 45 mg/dL (50-129) L 09/12/24 04:25 HDL Cholesterol 26 mg/dL (60-100) L 09/12/24 04:25 LDL/HDL Ratio 1.73 RATIO (0.00-3.22) 09/12/24 04:25 Cholesterol/HDL Ratio 3.58 mg/dL (0.0-4.40) 09/12/24 04:25 Lipase 27 U/L (13-60) 09/11/24 16:43 Folate 8.7 ng/mL (4.8-37.3) 09/12/24 04:25 Procalcitonin 0.10 ng/mL (0-0.5) 09/12/24 04:25 TSH 2.30 uIU/mL (0.27-4.20) 09/11/24 16:43 TSH 2.31 uIU/mL (0.27-4.20) 09/11/24 16:43 Urine Color Yellow (Yellow) 09/11/24 18:10 Urine Appearance Clear (CLEAR) 09/11/24 18:10 Urine pH 5.5 (5-7) 09/11/24 18:10 Ur Specific [place] 1.011 (1.005-1.030) 09/11/24 18:10 Urine Protein Negative (Negative) 09/11/24 18:10 Urine Glucose (UA) Negative (Normal) 09/11/24 18:10 Urine Ketones Negative (Negative) 09/11/24 18:10 Urine Blood Negative (Negative) 09/11/24 18:10 Urine Nitrate Negative (Negative) 09/11/24 18:10 Urine Bilirubin Negative (Negative) 09/11/24 18:10 Urine Urobilinogen 0.2 mg/dL (Negative) 09/11/24 18:10 Ur Leukocyte Esterase 1+ (Negative) A 09/11/24 18:10 Urine RBC 0-2 /hpf (0-2) 09/11/24 18:10 Urine WBC 0-5 /hpf (0-5) 09/11/24 18:10 Ur Squamous Epith Cells 0-5 /hpf (0-5) 09/11/24 18:10 Amorphous Sediment Not Reportable 09/11/24 18:10 Urine Bacteria None seen /hpf (NONE) 09/11/24 18:10 Hyaline Casts 4.52 /lpf 09/11/24 18:10 Ur Random Sodium 36 mmol/L 09/11/24 18:10 Influenza A (PCR) Negative (Negative) 09/11/24 16:49 Influenza Type B (PCR) Negative (Negative) 09/11/24 16:49 RSV (PCR) Negative (Negative) 09/11/24 16:49 SARS-CoV-2 (PCR) Negative (Negative) 09/11/24 16:49 Blood Type O Negative 09/11/24 18:18 Rho(D) Type Rh negative 09/11/24 18:18 Antibody Screen Negative 09/11/24 18:18 Crossmatch See Detail 09/11/24 18:18 Vitals Last Vital Signs Temp 97.7 F 09/13/24 08:00 Pulse 75 09/13/24 08:00 Resp 18 09/13/24 08:00 BP 146/78 09/13/24 08:00 Pulse Ox 96 09/13/24 08:00 O2 Del Method Room Air 09/13/24 08:00 Discharge Plan Discharge Patient Disposition: Home Condition: Stable Prescriptions: New dapagliflozin propanediol [Farxiga] 10 mg tablet 10 mg PO DAILY Qty: 30 2RF pantoprazole [Protonix] 40 mg tablet,delayed release (DR/EC) 40 mg PO QAM Qty: 60 0RF Rx Instructions: Twice daily for next 2 weeks followed by once daily Continued Eliquis 5 mg tablet 5 mg PO BID multivitamin Tablet 1 tab PO DAILY ferrous sulfate [iron] 325 mg (65 mg iron) tablet 325 mg PO EVERY OTHER DAY Qty: 90 0RF Changed metoprolol tartrate 50 mg tablet 50 mg PO BID Qty: 180 3RF Rx Instructions: 50 mg orally; furosemide 20 mg tablet 20 mg PO QAM 30 Days Qty: 30 0RF Discharge Order = DC NOW: Discharge Order (Routine); Ordered 09/13/24 Ordered By: Jaxon Goddard Referrals: Gavino Louis MD [Primary Care Provider, Family Practice] - 09/20/24 10:20 am Referral Note: This appointment is scheduled with Brooklyn Cantor as Dr. Louis is out of office. Thank you! Discharge Diet: Low Salt Discharge Activity: Resume usual activity Patient Instructions: Acute Kidney Injury (DC), Hyponatremia (DC), Weakness (DC), Anemia (DC), Opioid Safety, Patient Portal & Nory Instructions Activity Restrictions/Additional Instructions: Restrict fluid intake to less than 1500 cc, salt intake to less than 2 g daily. Advised to check his weight daily at home. Is advised that weight today would be the dry weight and if body weight increases by around 5 pounds, patient is to take an extra dose of Lasix daily till body weight comes down to weight today. If not able to come down to dry body weight in 1 week, then is to call cardiology office for further recommendations. Patient was counseled in detail to take medications regularly as prescribed. He should have a repeat CBC and BMP checked in 1 week. Follow-up with a primary care provider onsite appointment. Discharge Attestations Time Spent in Discharge Care*: greater than 30 min Specific Discharge Activities: educating patient, discussing with pcp/other providers, discussing with correctional case manager/social workers/dc planners, documenting/other paperwork and evaluating patient/reviewing data Status at Discharge: Cognitive status at discharge: cognitively intact , Behavioral status at discharge: cooperative , Functional status at discharge: uses cane/walker , Overall status at discharge: patient is back to baseline Quality Metrics Clinical Quality Measures [ No reported AMI, CVA or VTE this stay] Coding Level of Care Code 34657 Total time (in minutes) for Discharge: 65 Diagnoses Generalized weakness R53.1 Acute on chronic anemia D64.9 Hyponatremia E87.1 Acute kidney injury N17.9 Aortic valve stenosis, nonrheumatic I35.0 Diastolic heart failure, unspecified HF chronicity I50.30 Heart failure chronicity: unspecified Primary hypertension I10 Hypertension type: primary hypertension
[2024-09-13] MEDS: pantoprazole 40 mg SDV IVP (09:42)
[2024-09-13 09:54] VITALS: PULSE 89; RESP 14; O2SAT 96
[2024-09-13 12:49] VITALS: BP 146/68; PULSE 67; RESP 20; TEMP 36.5; O2SAT 95
--- OUTSIDE RECORDS SUMMARY | 2024-09-15 13:45 | XMS_ITS ---
Author Organization Unknown Vital Signs BpStanding BpSitting BpSupine Date Temperature HeartRate Weight Hei ght Spo2 Respiration Bmi HeadCircumference FieldCount TimeRecorded NeckCircumferen ce WaistCircumference Pulse 134/84 06/28 00:00 :00 97.9 190,16. 00 5,4 98 32.8 00:00 77
== END 2024-09-13 12:50 | disposition home or self-care (01) ==
LOC: ER 17:57 → ER IP 09-12 01:31 → CSU 09-12 15:26 → ER IP 09-15 13:42
PROVIDERS: Admitting Provider Student in an Organized Health Care Education/Training Program; Emergency Provider Physician Assistant; PCP Family Medicine; Visit Provider Student in an Organized Health Care Education/Training Program
DX: D64.9 Anemia, unspecified (principal); E87.1 Hypo-osmolality and hyponatremia; I13.0 Hypertensive heart and chronic kidney disease with heart failure and stage 1 through stage 4 chronic kidney disease, or unspecified chronic kidney disease; N18.9 Chronic kidney disease, unspecified; I50.30 Unspecified diastolic (congestive) heart failure; Z79.01 Long term (current) use of anticoagulants; Z87.19 Personal history of other diseases of the digestive system; Z66 Do not resuscitate; I34.0 Nonrheumatic mitral (valve) insufficiency; I48.20 Chronic atrial fibrillation, unspecified
CPT/HCPCS: 36415; 36416; 36430; 71045; 71275; 74174; 80048; 80053; 80061; 81001; 82274; 82746; 82962; 83010; 83036; 83540; 83550; 83605; 83615; 83690; 83735; 83880; 84100; 84145; 84300; 84443; 85025; 85045; 85610; 86850; 86900; 86920; 87637; 93005; 93306; 94664; 96372; 97110; 97116; 97161; 99285; G0378; J1756; J1815; J2470; J7030; J9999; P9040

== ENCOUNTER 2024-10-06 16:06 | Emergency (ER) | payer OTHER, MEDICAID, SELFPAY ==
--- OUTSIDE RECORDS SUMMARY | 2021-08-15 04:20 | XMS_ITS | Continuity of Care Document ---
Author Organization [address] [place] [address] Address [address] [facility] [address] [place] [address] Phone Care Team Providers Care University Teacher Name Role Phone Nandini Khan Unavailable Unavailable Allergies, Adverse Reactions, Alerts Substance Reaction Status Criticality No Known Allergies Active No Inform ation Medications Medication Instructions Dosage Effective Dates (start - stop) Status Comments furosemide 40 mg tablet - Active potassium chloride ER 20 mEq tablet,extended release(part/cryst) - Active divalproex 250 mg tablet,delayed release - Active Novofine Autocover 30 gauge x 1/3 needle - Active tamsulosin 0.4 mg capsule - Active duloxetine 30 mg capsule,delayed release - Active simvastatin 20 mg tablet - Active memantine 10 mg tablet - Active Novolog Flexpen U-100 Insulin aspart 100 unit/mL subcutaneous - Active clonidine HCl 0.2 mg tablet - Active Levemir FlexTouch U-100 Insulin 100 unit/mL (3 mL) subcutaneous pen - Active nystatin 100,000 unit/gram topical powder - Active hydralazine 50 mg tablet - Active potassium chloride ER 10 mEq tablet,extended release(part/cryst) - Active duloxetine 60 mg capsule,delayed release - Active quetiapine 25 mg tablet - Active metolazone 2.5 mg tablet - Active potassium chloride ER 10 mEq capsule,extended release - Active latanoprost 0.005 % eye drops instill 1 drop by ophthalmic route every day into affected eye(s) in the evening 1.00 drop - No Longer Active Problems Condition Type Effective Dates (start - stop) Clini myra Status Comments No Known Problems Procedures Procedure Date Cleaning And Inspection Of [facility]CD Oral Hygiene Instructions SPEECH AUDIOMETRY THRESHOLD; EYE EXAM NEW PATIENT PURE TONE AUDIOMETRY (THRESHOLD); AIR ON LY Periodic Oral Evaluation Cleaning [facility] Inspection Of [facility] 21 Oral Hygiene Instructions TYMPANOMETRY (IMPEDANCE TESTING) 2020 COMPREHENSIVE AUDIOMETRY THRESHOLD EVALU ATION AND SPEECH RECOGNITION PPE Cleaning And Inspection Of [facility] 20 Oral Hygiene Instructions Cleaning And Inspection Of [facility] 20 Oral Hygiene Instructions Hearing services, miscellaneous Cleaning And Inspection Of [facility] Complete Series Of Radiographic Images D Compsve Oral Eval- New/Est Pat 19 COMPREHENSIVE AUDIOMETRY THRESHOLD EVALU ATION AND SPEECH RECOGNITION TYMPANOMETRY AND REFLEX THRESHOLD MEASUR EMENTS Advance Directives Directive Yes / No Effective Date File Name No Information Encounters Encounter Description Practice Location Reason(s) For Visit Diagnoses Date Provider Providers Copied on Encounter [address] [place] [address], [id number] [place] [address], [id number], tel:[phone] Hallehalle Cui Complete loss of teeth due to periodontal diseases, class IEncounter for dental exam and cleaning w/o abnormal findings 2 HAILEE Dong. Referring Provider: Carlton Lee. [address] [place] [address], [address] [address], [place], [place], [id number], tel:[phone] Hallehalle Garciamogerald Powers Sensorineural hearing loss, bilateral 2 Yousif Maldonado. [address] [facility], [address], [place], [place], [id number], . tel:[phone] Referring Provider: Carlton Lee. 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 Referring Provider: Carlton Lee. [address] [place] [address], [address] [place] [address], [place], [place], [id number], tel:[phone] Zz [facility] Powers Sensorineural hearing loss, bilateral 1 RehreHAILEE Espino. Referring Provider: Carlton Lee. [address] [place] [address], [address] [place] [address], [place], [place], [id number], tel:[phone] Zz Marymount Powers Encounter for dental exam and cleaning w/o abnormal findingsCompl ete loss of teeth due to periodontal diseases, class I 1 Victor Manuel Dewitt. [id number] [place] [address], [place] [address], [place], [id number], . tel:[phone] Referring Provider: Carlton Lee. [address] [place] [address], [address] [place] [address], [place], [place], [id number], tel:[phone] Zz Mary[facility] Powers Sensorineural hearing loss, bilateral Feb-0 1 Yousif Maldonado. [address] [facility], [address], [place], [place], [id number], . tel:[phone] Referring Provider: Carlton Lee. [address] [place] [address], [address] [place] [address], [place], [place], [id number], tel:[phone] Zz Mary[place] Powers Sensorineural hearing loss, bilateral Nov-0 3-202 0 Palatt Erica. [address] [facility], [address], [place], [place], [id number], . tel:[phone] Referring Provider: Carlton Lee. [address] [place] [address], [address] [place] [address], [place], [place], [id number], tel:[phone] Julia Cui Encounter for dental exam and cleaning w/o abnormal findingsCompl ete loss of teeth due to periodontal diseases, class I Oct-2 8-202 0 Clarry Nova. [address] [place] [address], [address], [place], [place], [id number], [place]. tel:[phone] Referring Provider: Carlton Lee. [address] [place] [address], [address] [place] [address], [id number], tel:[phone] Julia Cui Complete loss of teeth due to periodontal diseases, class IEncounter for dental exam and cleaning w/o abnormal findings Feb-2 8-202 0 Montez Zane. . Referring Provider: Carlton Lee. [address] [place] [address], [address] [place] [address], [place], [place], [id number], tel:[phone] Julia Cui Sensorineural hearing loss, bilateral Feb-0 4-202 0 Palatt Erica. [address] [facility], [address], [place], [address] [place] [address], . tel:[phone] Referring Provider: Carlton Lee. [address] [place] [address], [address] [place] [address], [place], [place], [id number], tel:[phone] Julia Cui Complete loss of teeth due to periodontal diseases, class IEncounter for dental exam and cleaning w/o abnormal findings Dec- 3-201 9 Montez Zane. . Referring Provider: Carlton Lee. [address] [place] [address], [place], [address] [place] [address], [place] tel:[phone] Julia Cui Complete loss of teeth due to periodontal diseases, class IEncounter for dental exam and cleaning w/o abnormal findings 9 George Wade. [address] [facility], [address], [place], [place], [id number], . tel:[phone] Referring Provider: Carlton Lee. [address] [place] [address], [address], [place], [place], [id number], tel:[phone] Julia Cui Sensorineural hearing loss, bilateral 9 Yousif Maldonado. [address] [facility], [address], [place], [place], [id number], . tel:[phone] Referring Provider: Carlton Lee. Family History Family Member Type Diagnosis Age At Onset No Information Payers Payer name Insurance type Covered libertarian ID Authoriza tion(s) No Information Social History Type Description Quantity Date Captured Comments Sex Female Smoking Status No Information Chief Complaint And Reason For Visit No Information Reason For Referral Reason For Referral No Information Plan Of Treatment Date Type Action Status Patient Education Learning About Dentures completed Patient Education Hearing Tests: About Th kimberly Tests completed Patient Education Learning About Dental Care and Your Health Problem completed Patient Education Hearing Loss: After You r Visit completed Patient Education Learning About Dentures completed Patient Education Learning About Dentures completed Patient Education Dental X-Ray: About Thi s Test completed Patient Education Learning About Dentures completed Patient Education Learning About Dental C are and Your H~ completed Patient Education Hearing Tests: About Th kimberly Tests completed History Of Present Illness Encounter Date Complaint History Of Prese nt Illness Diabetic eye exam The 80 year ol d female presents for evaluation of Diabetic eye exam in the right eye and left eye. It occurs all the time. The onset was progressive. The symptom is constant. The condition is not any better. Functional Status Date Functional Assessmen t No Information Instructions Date Instruction Additional Infor lisa Return as needed Related to Sens orineural hearing loss, bilateral Impression/Plan - Gl aucoma with risk for progressive vision loss. We will initiate treatment and monitor. Related to Primary open-angle glaucoma, bilateral, indeterminate stage Impression/Plan - Lo ng standing diabetic retinal damage. Previous laser treatments have stabilized. 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 Return to attempt further testin g Related to Sensorineural hearing loss, bilateral Return for Annual Related to Sen sorineural hearing loss, bilateral Return for Annual Related to Sen sorineural hearing loss, bilateral Return for Annual Related to Sen sorineural hearing loss, bilateral Assessments Type Assessment Date No Information Patient Care Teams Name Effective Dates (start - stop) Status Members No Information
--- OUTSIDE RECORDS SUMMARY | 2021-08-19 19:00 | XMS_ITS | Continuity of Care Document ---
Author Organization [facility] Address [address] [place] [address] Care Team Providers Care Carpet Cutter Name Role Phone Dx, [facility] Unavailable Unavailable [...] Date Provider Providers Copied on Encounter [facility], [address] [facility], [place], [address], [place] [facility] No Information 2 Dx [facility]. [address] [facility], [facility] [address], [place], [place], [id number], [place]. tel:[phone] Referring Provider: DAVID SMITH, [address], [place], [address] . tel:[phone] Family History Family Member Type Diagnosis Age At Onset No Information Payers Payer name Insurance type Covered republican ID Authorendya jayyadithya(s) [facility] CI [id number] Social History Type Description Quantity Date Captured [...]
[2024-10-06 16:08] VITALS: BP 159/79; PULSE 108; RESP 14; TEMP 37; O2SAT 92
--- NOTE | 2024-10-06 16:14 | XRR_ITS ---
PROCEDURE INFORMATION: Exam: XR Right Knee Exam date and time: 10/06/2024 4:15 PM Age: 84 years old Clinical indication: Injury or trauma; Fall; Blunt trauma; Knee; Right TECHNIQUE: Imaging protocol: Radiologic exam of the right knee. Views: 3 views. COMPARISON: No relevant prior studies available. FINDINGS: Bones/joints: No acute fracture or dislocation of the right knee. Moderate tricompartmental osteoarthritis. Soft tissues: No joint effusion. XR/XR knee RT 3V* [id number] IMPRESSION: 1. No acute fracture or dislocation of the right knee. 2. Moderate osteoarthritis.
--- NOTE | 2024-10-06 16:14 | XRR_ITS ---
PROCEDURE INFORMATION: Exam: XR Right Hip Exam date and time: 10/06/2024 4:15 PM Age: 84 years old Clinical indication: Injury or trauma; Fall; Blunt trauma (contusions or hematomas); Right; Hip; Additional info: Fall, hip pain, w/ pelvis TECHNIQUE: Imaging protocol: Radiologic exam of the right hip. Views: 1 view hip with pelvis when performed. COMPARISON: CT ang ches abdpel [id number] 09/11/2024 6:33 PM FINDINGS: Bones/joints: No evidence acute fracture or dislocation of the right hip. Soft tissues: Unremarkable soft tissues. XR/XR hip RT 2-3V wo/w pel* [id number] IMPRESSION: No evidence of acute fracture or dislocation of the right hip, though evaluation of bony detail is somewhat limited by patient body habitus. If there is high clinical concern for fracture, consider further evaluation with CT pelvis.
--- NOTE | 2024-10-06 16:26 | W.ED.BACK ---
HPI - Back Pain/Injury General: Chief Complaint: Back Pain/Injury Stated Complaint: right hip pain Time Seen by Provider: 10/06/24 16:09 Source: patient Mode of arrival: ambulatory Limitations: no limitations History of Present Illness: Patient is an 84-year-old female who presents the emergency department by ambulance for right lower extremity pain. She is very hard of hearing, this limits review of systems. She does state that about a week ago she slid to the ground and had to crawl to call for help. It is reported that she has been ambulatory since this occurred, but since has had worsening right knee and right hip pain. She reports a history of sciatica, stating this feels different. EMS gave 100 mcg of f[address]anyl on the way to the ED. She did not hit her head. She is on blood thinners. Recent hospitalization at the end of August for acute kidney injury. Patient lives alone. MD elicited complaint: back pain, fall and other (right hip/knee) Onset (ago): week(s) (reported by patient) Timing: constant Severity: severe Pain scale (0-10): 10 Associated symptoms: Deny abdominal pain, dysuria, nausea or vomiting Related Data Home Medications ?Medication ?Instructions ?Recorded ?Confirmed multivitamin 1 tab PO DAILY 09/24/22 09/12/24 apixaban 5 mg tablet (Eliquis) 5 mg PO BID 11/03/22 09/12/24 Previous Rx's ?Medication ?Instructions ?Recorded ferrous sulfate 325 mg (65 mg 325 mg PO EVERY OTHER DAY #90 tabs 09/26/22 iron) tablet (iron) dapagliflozin propanediol 10 mg 10 mg PO DAILY #30 tabs 09/13/24 tablet (Farxiga) furosemide 20 mg tablet 20 mg PO QAM 30 days #30 tabs 09/13/24 metoprolol tartrate 50 mg tablet 50 mg PO BID #180 tabs 09/13/24 pantoprazole 40 mg tablet,delayed 40 mg PO QAM #60 tabs 09/13/24 release (Protonix) Allergies Allergy/AdvReac Type Severity Reaction Status Date / Time Sulfa (Sulfonamide Allergy ALGY-Difficulty Verified 07/11/24 10:12 Antibiotics) Breathing Review of Systems General: Reports: 10 or more systems reviewed and unremarkable except in HPI and below and Other (Limited by hard of hearing) Const: Reports: other (Fall) Card: Denies: chest pain Resp: Denies: dyspnea GI: Denies: abdominal pain, nausea, vomiting or diarrhea : Denies: difficulty voiding, dysuria or urinary frequency Musc: Reports: back pain, joint pain (Right hip and right knee) and limited range of motion; Denies: extremity pain, extremity swelling, joint swelling or joint redness Neuro: Denies: numbness in extremities or weakness in extremities PFSH ED PFSH: Medical History GI bleed Lower gastrointestinal hemorrhage Mitral regurgitation Aortic valve stenosis, nonrheumatic Hypertension Hip pain Atrial fibrillation with RVR Surgical History H/O endoscopy Found to have significant gastritis, pyloric ulcer-10/15 Family History Brother Cancer Social History Smoking and tobacco/nicotine status: never used tobacco/nicotine Alcohol intake: never Substance/Drug Use: never Physical Exam Const: COMMON NORMALS: no acute distress, patient oriented x3, healthy appearing and alert NUTRITIONAL APPEARANCE: obese HENMT: OTHER: Hard of hearing Eye: COMMON NORMALS: EOMs intact bilaterally and conjunctivae normal CONJUNCTIVA: Yes conjunctivae normal Resp: COMMON NORMALS: normal respiratory effort, No retractions, No use of accessory muscles and clear to auscultation bilaterally AUSCULTATION: clear to auscultation bilaterally Cardio: COMMON NORMALS: regular rate, regular rhythm, S1 normal heart sound present and S2 normal heart sound present RATE: regular rate RHYTHM: regular rhythm HEART SOUNDS: S1 normal heart sound present and S2 normal heart sound present Back/Pelvis: OTHER: Normal visual examination. No spinous process tenderness or paracervical, parathoracic, or paralumbar tenderness to palpation. Straight leg raise positive on the right. Extremity: COMMON NORMALS: normal to inspection and full ROM NARRATIVE EXTREMITY EXAM: Negative tenderness to palpation of the right lateral or anterior hip. No obvious internal or external rotation or shortening of the right lower extremity. 2+ pitting edema bilaterally. Pulses present to right lower extremity. No calf pain, no skin color changes. Negative logroll. Neuro: COMMON NORMALS: patient oriented x3, moves all extremities, no focal motor deficits, no sensory deficits noted, deep tendon reflexes 2+ bilaterally and gait normal SENSORIUM/ORIENTATION: Yes alert OTHER: L3, L4, L5, and S1 nerve sensations intact. Normal knee jerk and ankle jerk reflexes. Skin: COMMON NORMALS: no rashes or lesions noted GENERAL SKIN EXAM: no rashes or lesions noted Course Vital Signs: Vital signs: Vital Signs Temperature 98.6 F 10/06/24 16:08 Pulse Rate 85 10/06/24 18:14 Respiratory Rate 16 10/06/24 18:14 Blood Pressure 136/84 10/06/24 18:14 Pulse Oximetry 93 10/06/24 18:14 Oxygen Delivery Me thod Room Air 10/06/24 18:14 MDM - Back Pain/Injury Medical Decision Making This patient presented by ambulance for what was reported to be a fall, though with a history of sounds like that she slipped off her chair and fell onto her right leg. Neurovascular status intact on exam, no concern for hip fracture based off of the history or exam, though an x-ray was ordered and did not show any acute fracture or dislocation. There is history of dementia with the patient, initially she refused to walk, not based on pain. I was able to get her to put weight on the leg and she was noted to be ambulatory and able to transition to the bedside commode. I discussed with her plan for rehab placement if she is unable to walk, she states that her son already has a place lined up for her at [facility]. Pain controlled here with Dilaudid, and son picks the patient up for discharge home. Labs Radiology Impressions Hip/Pelvis X-Ray 10/06/24 16:14 IMPRESSION: No evidence of acute fracture or dislocation of the right hip, though evaluation of bony detail is somewhat limited by patient body habitus. If there is high clinical concern for fracture, consider further evaluation with CT pelvis. Knee X-Ray 10/06/24 16:14 IMPRESSION: 1. No acute fracture or dislocation of the right knee. 2. Moderate osteoarthritis. Laboratory Results Urine Color Yellow (Yellow) 10/06/24 18:39 Urine Appearance Clear (CLEAR) 10/06/24 18:39 Urine pH 7.5 (5-7) 10/06/24 18:39 Ur Specific [place] 1.012 (1.005-1.030) 10/06/24 18:39 Urine Protein 1+ (Negative) A 10/06/24 18:39 Urine Glucose (UA) Negative (Normal) 10/06/24 18:39 Urine Ketones Trace (Negative) 10/06/24 18:39 Urine Blood Negative (Negative) 10/06/24 18:39 Urine Nitrate Negative (Negative) 10/06/24 18:39 Urine Bilirubin Negative (Negative) 10/06/24 18:39 Urine Urobilinogen 1.0 mg/dL (Negative) 10/06/24 18:39 Ur Leukocyte Esterase 1+ (Negative) A 10/06/24 18:39 Urine RBC 0-4 /hpf (0-2) H 10/06/24 18:39 Urine WBC 15-25 /hpf (0-5) H 10/06/24 18:39 Ur Squamous Epith Cells 0-4 /hpf (0-5) H 10/06/24 18:39 Ur Transition Epith Cell 0-4 /hpf 10/06/24 18:39 Amorphous Sediment Not Reportable 10/06/24 18:39 Urine Bacteria Trace /hpf (NONE) 10/06/24 18:39 Urine Mucus None /hpf 10/06/24 18:39 All radiology interpretation(s) finalized by discharge Discharge Plan Discharge Patient Disposition: Home Clinical Impression: Fall, Leg pain, right Condition: Stable Prescriptions: No Action Eliquis 5 mg tablet 5 mg PO BID multivitamin Tablet 1 tab PO DAILY ferrous sulfate [iron] 325 mg (65 mg iron) tablet 325 mg PO EVERY OTHER DAY Qty: 90 0RF metoprolol tartrate 50 mg tablet 50 mg PO BID Qty: 180 3RF Rx Instructions: 50 mg orally; furosemide 20 mg tablet 20 mg PO QAM 30 Days Qty: 30 0RF pantoprazole [Protonix] 40 mg tablet,delayed release (DR/EC) 40 mg PO QAM Qty: 60 0RF Rx Instructions: Twice daily for next 2 weeks followed by once daily dapagliflozin propanediol [Farxiga] 10 mg tablet 10 mg PO DAILY Qty: 30 2RF Discharge Orders: Discharge ED (Routine); Ordered 10/06/24 Ordered By: Osmar Joel Referrals: Gavino Louis MD [Primary Care Provider, Family Practice] Patient Instructions: Patient Portal & Nory Instructions Activity Restrictions/Additional Instructions: Geriatric Fall Discharge Discharge Instructions: 84-Year-Old Female, Fall with Right Hip and Knee Pain, Negative X-rays Summary of ED Course: - Presented after a fall one week ago with right hip and knee pain. - X-rays of hip and knee were negative for fracture. --- General Treatment Options for Pain at Home: - Analgesia: - First-line: Acetaminophen (paracetamol) is recommended for mild to moderate musculoskeletal pain in older adults, given its safety profile. Typical dosing is 500?1000 mg every 6 hours as needed, not to exceed 3,000 mg per 24 hours in older adults, accounting for comorbidities and liver function. - NSAIDs: Use with caution due to increased risk of gastrointestinal, renal, and cardiovascular adverse effects in the elderly. If required, use the lowest effective dose for the shortest duration, and avoid in patients with chronic kidney disease, peptic ulcer disease, or heart failure. - Topical agents: Topical NSAIDs (e.g., diclofenac gel) may be considered for localized pain, with lower systemic risk. - Opioids: Generally avoided unless pain is severe and not controlled by other measures, due to risk of sedation, falls, and constipation. - Non-pharmacologic measures: - Ice packs (15?20 minutes every 2?3 hours for the first 48?72 hours if swelling is present). - Gentle lidjt-an-folvlk exercises as tolerated to prevent stiffness, unless contraindicated. - Elevation of the affected limb if swelling is present. - Use of assistive devices (cane, walker) as needed for safe ambulation. - Referral to physical therapy may be considered for persistent pain or mobility impairment. - Medication review: - Review all current medications for agents that may increase fall risk (e.g., sedatives, antihypertensives, antipsychotics) and adjust as appropriate. --- Fall Risk and Functional Status: - Assess ability to perform activities of daily living (ADLs): - If unable to get out of bed/chair, dress, bathe, prepare meals, or shop independently, consider referral for occupational/physical therapy and home safety evaluation. - Evaluate home environment for hazards (loose rugs, poor lighting, clutter) and consider modifications. --- Reasons to Return to the Hospital: - Pain: - Severe, worsening, or unremitting pain not controlled by home measures. - Mobility: - Inability to bear weight, new difficulty walking, or loss of function. - Neurologic symptoms: - New confusion, weakness, numbness, or changes in mental status. - Signs of occult fracture or injury: - Persistent pain despite negative X-rays may warrant advanced imaging (CT or MRI) to rule out occult fracture, especially in the hip. - Signs of infection: - Redness, warmth, swelling, or fever at the site of injury. - Other concerning symptoms: - Chest pain, shortness of breath, or any new/worsening symptoms. --- Follow-Up and Support: - Arrange outpatient follow-up with primary care provider within 1 week for reassessment and further fall risk evaluation. - Consider telephone follow-up within 48 hours to address questions and ensure comprehension of instructions, as this improves outcomes and satisfaction in geriatric patients. - Provide written instructions in large font and share with family/caregivers as appropriate. --- Additional Notes: - If persistent clinical concern for fracture remains despite negative X-rays, advanced imaging (CT or MRI) should be considered, as up to 39% of elderly patients with negative radiographs may have occult hip fractures requiring surgery. - Encourage regular physical activity and home safety interventions to reduce future fall risk. Print Language: Chinese Coding Level of Care Code ED [facility] [place] [facility] for Cristhian Pressley
[2024-10-06 18:14] VITALS: BP 136/84; PULSE 85; RESP 16; O2SAT 93
[2024-10-06] MEDS: HYDROmorphone 0.5 MG/0.5 ML INJ IVP ×2 (18:50→21:22)
[2024-10-06 19:12] LABS: Glucose Urine UA Negative (Normal); Nitrate Urine Negative (Negative); Specific Gravity, Urine 1.012 (1.005-1.030)
[2024-10-06 19:21] LABS: Add Urine Microscopic? YES
--- NOTE | 2024-10-06 21:13 | PC.NURSE ---
pt refusing to ambulate. pt states i will not do it . this nurse and josue CAMPBELL explained that we would stay on either side of pt and assist her. pt again stated i will not do it . this nurse notified provider. pt transferred to bed and sitting on edge of bed. pt refuses to sit all the way back into the bed.
== END 2024-10-06 21:41 | disposition home or self-care (01) ==
PROVIDERS: Emergency Provider Physician Assistant; PCP Family Medicine
DX: M79.604 Pain in right leg (principal); Z79.01 Long term (current) use of anticoagulants; I10 Essential (primary) hypertension
CPT/HCPCS: 73502; 73562; 81001; 87086; 96374; 96376; 99284; J1171

== ENCOUNTER 2024-10-10 06:53 | Observation (INO) | payer OTHER, MEDICAID, SELFPAY ==
--- OUTSIDE RECORDS SUMMARY | 2021-08-15 04:20 | XMS_ITS | Continuity of Care Document ---
Author Organization [address] [place] [address] Address [address] [facility] [address] [place] [address] Phone Care Team Providers Care Drive Man Name Role Phone Nandini Khan Unavailable Unavailable Allergies, Adverse Reactions, Alerts Substance Reaction Status Criticality No Known Allergies Active No Inform ation Medications Medication Instructions Dosage Effective Dates (start - stop) Status Comments potassium chloride ER 20 mEq tablet,extended release(part/cryst) - Active furosemide 40 mg tablet - Active Novofine Autocover 30 gauge x 1/3 needle - Active divalproex 250 mg tablet,delayed release - Active tamsulosin 0.4 mg capsule - Active duloxetine 30 mg capsule,delayed release - Active simvastatin 20 mg tablet - Active Novolog Flexpen U-100 Insulin aspart 100 unit/mL subcutaneous - Active memantine 10 mg tablet - Active clonidine HCl 0.2 mg tablet - Active Levemir FlexTouch U-100 Insulin 100 unit/mL (3 mL) subcutaneous pen - Active nystatin 100,000 unit/gram topical powder - Active hydralazine 50 mg tablet - Active potassium chloride ER 10 mEq tablet,extended release(part/cryst) - Active duloxetine 60 mg capsule,delayed release - Active quetiapine 25 mg tablet - Active potassium chloride ER 10 mEq capsule,extended release - Active metolazone 2.5 mg tablet - Active latanoprost 0.005 % eye drops [...] Diagnoses Date Provider Providers Copied on Encounter [address] [place] [address], [id number] [place] [address], [id number], tel:[phone] Hallehalle Cui Complete loss of teeth due to periodontal diseases, class IEncounter for dental exam and cleaning w/o abnormal findings 2 HAILEE Dong. Referring Provider: Carlton Lee. [address] [place] [address], [address] [address], [place], [place], [id number], tel:[phone] Hallehalle Garciamogerald [place] Sensorineural hearing loss, bilateral 2 Yousif Maldonado. [address] [facility], [address], [place], [place], [id number], . tel:[phone] Referring Provider: Carlton Lee. 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 Referring Provider: Carlton Lee. [address] [place] [address], [address] [place] [address], [place], [place], [id number], tel:[phone] Zz Marymount [place] Sensorineural hearing loss, bilateral 1 RehreHAILEE Espino. Referring Provider: Carlton Lee. [address] [place] [address], [address] [place] [address], [place], [place], [id number], tel:[phone] Zz Marymount [place] Encounter for dental exam and cleaning w/o abnormal findingsCompl ete loss of teeth due to periodontal diseases, class I 1 Victor Manuel Dewitt. [address] [place] [address], [place] [address], [place], [id number], . tel:[phone] Referring Provider: Carlton Lee. [address] [place] [address], [address] [place] [address], [place], [place], [id number], tel:[phone] Zz Marymount [place] Sensorineural hearing loss, bilateral Feb-0 1 Yousif Maldonado. [address] [facility], [address], [place], [place], [id number], . tel:[phone] Referring Provider: Carlton Lee. [address] [place] [address], [address] [place] [address], [place], [place], [id number], tel:[phone] Zz Marymount [place] Sensorineural hearing loss, bilateral Nov-0 3-202 0 Palatt Erica. [address] [facility], [address], [place], [place], [id number], . tel:[phone] Referring Provider: Carlton Lee. [address] [place] [address], [address] [place] [address], [place], [place], [id number], tel:[phone] Julia Cui Encounter for dental exam and cleaning w/o abnormal findingsCompl ete loss of teeth due to periodontal diseases, class I Oct-2 8-202 0 Clarry Nova. [address] [place] [address], [address], [place], [place], [id number], [place]. tel:[phone] Referring Provider: Carlton Lee. [address] [place] [address], [address] [place] [address], [id number], tel:[phone] Julia Cui Complete loss of teeth due to periodontal diseases, class IEncounter for dental exam and cleaning w/o abnormal findings Feb-2 8-202 0 Montez Zane. . Referring Provider: Carlton Lee. [address] [place] [address], [address] [place] [address], [place], [place], [id number], tel:[phone] Julia Cui Sensorineural hearing loss, bilateral Feb-0 4-202 0 Palatt Erica. [address] [facility], [address], [place], [address] [place] [address], . tel:[phone] Referring Provider: Cralton Lee. [address] [place] [address], [address] [place] [address], [place], [place], [id number], tel:[phone] Julia Cui Complete loss of teeth due to periodontal diseases, class IEncounter for dental exam and cleaning w/o abnormal findings Dec- 3-201 9 Montez Zane. . Referring Provider: Carlton Lee. [address] [place] [address], [place], [address] [place] [address], [place] tel:[phone] Julia Cui Complete loss of teeth due to periodontal diseases, class IEncounter for dental exam and cleaning w/o abnormal findings 9 George Wade. [address] [facility]3], [address], [place], [place], [id number], . tel:[phone] Referring Provider: Carlton Lee. [address] [place] [address], [address], [place], [place], [id number], tel:[phone] Julia Cui Sensorineural hearing loss, bilateral 9 Yousif Maldonado. [address] [facility], [address], [place], [place], [id number], . tel:[phone] Referring Provider: Carlton Lee. Family History Family Member Type Diagnosis Age At Onset No Information Payers Payer name Insurance type Covered democrat ID Authoriza tion(s) No Information Social History [...] Related to Sens orineural hearing loss, bilateral Follow up - Return i n 3-6 months for glaucoma check. Impression/Plan - Lo ng standing diabetic retinal damage. Previous laser treatments have stabilized. 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 We will initiate treatment and monitor. Related to Primary open-angle glaucoma, bilateral, indeterminate stage Return to attempt further testin g Related [...]
--- OUTSIDE RECORDS SUMMARY | 2021-08-19 19:00 | XMS_ITS | Continuity of Care Document ---
Author Organization [facility] Address [address] [place] [address] Care Team Providers Care Operations Research Manager Name Role Phone Dx, [facility] Unavailable Unavailable Procedures Procedure Date CHRISTIAN DNA AMP PROBE C DIFF AMPLIFIED PROBE VANOMYCIN DNA AMP PROBE STAPH A DNA AMP PROBE MR-STAPH DNA AMP PROBE STREP A DNA AMP PROBE STREP B DNA AMP PROBE DETECT AGENT NOS DNA AMP DETECT AGENT NOS DNA QUANT Advance Directives Directive Yes / No Effective Date File Name No Information Encounters Encounter Description Practice Location Reason(s) For Visit Diagnoses Date Provider Providers Copied on Encounter [facility], [address] [facility], [place], [address], [place] [facility] No Information 2 Dx [facility]. [address] [facility], [facility] [address], [place], [place], [id number], [place]. tel:[phone] Referring Provider: DAVID SMITH, [address], [place], [address] . tel:[phone] Family History Family Member Type Diagnosis Age At Onset No Information Payers Payer name Insurance type Covered democrat ID Authorendya jayyadithya(s) [facility] CI [id number] Social History Type Description Quantity Date Captured Comments Sex Female Smoking Status No Information Chief Complaint And Reason For Visit No Information Reason For Referral Reason For Referral No Information History Of Present Illness Encounter Date Complaint History Of Prese nt Illness No Information Functional Status Date Functional Assessmen t No Information Instructions Date Instruction Additional Infor mation No Information Assessments Type Assessment Date No Information Patient Care Teams Name Effective Dates (start - stop) Status Members No Information
[2024-10-10] VITALS (15 sets, daily range): BP systolic 105–183; BP diastolic 64–133; PULSE 72–119; RESP 16–18; TEMP 36.6–36.8; O2SAT 94–98
--- NOTE | 2024-10-10 06:59 | XRR_ITS ---
PROCEDURE INFORMATION: Exam: XR Chest Exam date and time: 10/10/2024 7:07 AM Age: 84 years old Clinical indication: Other: Weakness TECHNIQUE: Imaging protocol: Radiologic exam of the chest. Views: 1 view. COMPARISON: CR (CHEST, ) 09/11/2024 4:47 PM FINDINGS: Lungs: Unremarkable. No consolidation. Pleural spaces: Unremarkable. No pleural effusion. No pneumothorax. Heart/Mediastinum: Unremarkable. No cardiomegaly. Bones/joints: Unremarkable. XR/XR chest 1V portable [id number] IMPRESSION: No acute findings.
--- NOTE | 2024-10-10 07:00 | W.ED.GENADLT ---
HPI - General Adult General: Chief complaint: Weakness Stated complaint: weakness Time Seen by Provider: 10/10/24 06:59 History of Present Illness: 84-year-old female presents emergency room complaining of feeling weakness. States she could not get out of bed at all this morning she did not take any of her morning medication she has a history of atrial fibrillation she has no focal neurologic deficits. She is able to move all of her extremities but has minimal movement in her legs initially could not states she could not move her legs at all and barely any effort get them off of the bed when asked to raise her legs. Later when I reexamined her she was flexing at the hip without difficulty and repeat using them to reposition herself in bed made several attempts at nursing staff to have her walk which she was not able to. She states a couple months ago she fell her legs got weak she went down to her knees she was seen after this there is no significant finding. Family member in the room states and wanting to get her to a [facility]. She has a history of atrial fibrillation hypertension she was transiently tachycardic and hypertensive but she had not taken her morning medicines she was given her morning meds and this resolved. Associated symptoms: Reports malaise; Deny chest pain, dyspnea or rash Related Data Home Medications ?Medication ?Instructions ?Recorded ?Confirmed multivitamin 1 tab PO DAILY 09/24/22 10/10/24 apixaban 5 mg tablet (Eliquis) 5 mg PO BID 11/03/22 10/10/24 diclofenac sodium 75 mg 75 mg PO BID PRN Pain 10/10/24 10/10/24 tablet,delayed release potassium chloride 20 mEq 20 meq PO DAILY 10/10/24 10/10/24 tablet,extended release triamcinolone acetonide 0.1 % 1 applic topical BID 10/10/24 10/10/24 topical cream Previous Rx's ?Medication ?Instructions ?Recorded ferrous sulfate 325 mg (65 mg 325 mg PO EVERY OTHER DAY #90 tabs 09/26/22 iron) tablet (iron) dapagliflozin propanediol 10 mg 10 mg PO DAILY #30 tabs 09/13/24 tablet (Farxiga) furosemide 20 mg tablet 20 mg PO QAM 30 days #30 tabs 09/13/24 metoprolol tartrate 50 mg tablet 50 mg PO BID #180 tabs 09/13/24 pantoprazole 40 mg tablet,delayed 40 mg PO QAM #60 tabs 09/13/24 release (Protonix) Allergies Allergy/AdvReac Type Severity Reaction Status Date / Time Sulfa (Sulfonamide Allergy ALGY-Difficulty Verified 07/11/24 10:12 Antibiotics) Breathing Review of Systems Const: Reports: fatigue and malaise; Denies: fever(s) or chills Card: Denies: chest pain Resp: Denies: dyspnea GI: Denies: abdominal pain : Denies: dysuria, urinary frequency or urinary urgency Musc: Denies: neck pain or back pain Skin/Breast: Denies: rash PFSH ED PFSH: Medical History Pulmonary hypertension Anemia Aortic stenosis, severe Atrial fibrillation GI bleed Lower gastrointestinal hemorrhage Mitral regurgitation Aortic valve stenosis, nonrheumatic Hypertension Hip pain Atrial fibrillation with RVR Surgical History H/O endoscopy Found to have significant gastritis, pyloric ulcer-10/15 Family History Brother Cancer Social History Smoking and tobacco/nicotine status: never used tobacco/nicotine Alcohol intake: never Substance/Drug Use: never Physical Exam Const: COMMON NORMALS: no acute distress GENERAL APPEARANCE: cooperative and comfortable ORIENTATION/CONSCIOUSNESS: Yes awake, Yes oriented to person, Yes oriented to place and Yes oriented to time HENMT: COMMON NORMALS: normocephalic, atraumatic and hearing grossly normal bilaterally HEAD & SCALP: normocephalic and atraumatic Resp: COMMON NORMALS: normal respiratory effort, No retractions, No use of accessory muscles and clear to auscultation bilaterally AUSCULTATION: clear to auscultation bilaterally Cardio: COMMON NORMALS: regular rate, regular rhythm and No murmurs present (Cardio) RATE: regular rate RHYTHM: regular rhythm GI: COMMON NORMALS: Soft to palpation and No hepatosplenomegaly present AUSCULTATION: Yes normoactive bowel sounds PALPATION: Yes Soft to palpation, No Tenderness to palpation present (GI), No Guarding due to palpation present (GI) and Yes No hepatosplenomegaly present Extremity: COMMON NORMALS: normal to inspection, capillary refill normal, no clubbing, cyanosis or edema, no calf tenderness and no pedal edema Neuro: SENSORIUM/ORIENTATION: Yes oriented to person, Yes oriented to place and Yes oriented to time OTHER: No focal neurologic deficits. She has bilateral arm and leg weakness facial asymmetry no visual disturbances. Skin: COMMON NORMALS: no rashes or lesions noted GENERAL SKIN EXAM: no rashes or lesions noted Course Vital Signs: Vital signs: Vital Signs Temperature 97.8 F 10/10/24 06:59 Pulse Rate 96 10/10/24 09:06 Respiratory Rate 18 10/10/24 06:59 Blood Pressure 164/95 10/10/24 09:51 Pulse Oximetry 94 10/10/24 09:06 Oxygen Delivery Me thod Room Air 10/10/24 09:06 MDM - General Adult Medical Decision Making No significant finding on workup. After he completed the workup patient began to have a caput complaining of back pain she had not mentioned this earlier. Will get a CT of her lumbar spine will admit for generalized weakness she will need physical therapy evaluation. She had no focal neurologic deficits no sign of a CVA on exam. Lab Data 10/10/24 07:10 10/10/24 07:10 Radiology Impressions Chest X-Ray 10/10/24 06:59 IMPRESSION: No acute findings. Head CT 10/10/24 07:53 IMPRESSION: No acute intracranial abnormality. Laboratory Results WBC 11.52 10^3/uL (3.29-11.43) H 10/10/24 07:10 RBC 5.35 10^6/uL (3.85-5.65) 10/10/24 07:10 Hgb 12.90 g/dL (11.27-16.99) 10/10/24 07:10 Hct 41.9 % (36-47) 10/10/24 07:10 MCV 78.3 fl (85-98) L 10/10/24 07:10 MCH 24.1 pg (27-33) L 10/10/24 07:10 MCHC 30.8 g/dL (30-55) 10/10/24 07:10 RDW Not Reportable 10/10/24 07:10 Plt Count 303 10^3/cmm (157-399) 10/10/24 07:10 MPV 10.3 fL (7.4-10.4) 10/10/24 07:10 Neut % (Auto) 69.8 % 10/10/24 07:10 Lymph % (Auto) 16.5 % 10/10/24 07:10 [place] % (Auto) 10.7 % 10/10/24 07:10 Eos % (Auto) 2.1 % 10/10/24 07:10 Baso % (Auto) 0.6 % 10/10/24 07:10 Neut # (Auto) 8.05 10^3/uL (1.8-7.7) H 10/10/24 07:10 Lymph # (Auto) 1.9 10^3/uL (0.8-4.8) 10/10/24 07:10 [place] # (Auto) 1.2 10^3/uL (0.2-0.9) H 10/10/24 07:10 Eos # (Auto) 0.2 10^3/uL (0.0-0.8) 10/10/24 07:10 Baso # (Auto) 0.1 10^3/uL (0.0-0.1) 10/10/24 07:10 Nucleated RBC % (auto) 0 % 10/10/24 07:10 Nucleated RBCs # 0.0 /100WBC 10/10/24 07:10 Dimorphic RBCs 2+ H 10/10/24 07:10 Poikilocytosis 1+ H 10/10/24 07:10 Anisocytosis 2+ H 10/10/24 07:10 Tear Drop Cells Trace 10/10/24 07:10 Ovalocytes 1+ H 10/10/24 07:10 Sodium 138 mmol/L (136-145) 10/10/24 07:10 Potassium 3.3 mmol/L (3.5-5.1) L 10/10/24 07:10 Chloride 99 mmol/L (98-107) 10/10/24 07:10 Carbon Dioxide 22 mmol/L (22-29) 10/10/24 07:10 Anion Gap 20.3 (5-19) H 10/10/24 07:10 BUN 8 mg/dL (8-23) 10/10/24 07:10 Creatinine 0.8 mg/dL (0.5-0.9) 10/10/24 07:10 GFR Calculation Not Reportable 10/10/24 07:10 Glucose 120 mg/dL (65-115) H 10/10/24 07:10 Calculated Osmolality 286 mOsm/kg (285-295) 10/10/24 07:10 Calcium 9.5 mg/dL (8.5-10.5) 10/10/24 07:10 Total Bilirubin 1.5 mg/dL (0.15-1.2) H 10/10/24 07:10 AST 20 U/L (0-32) 10/10/24 07:10 ALT 10 U/L (0-33) 10/10/24 07:10 Alkaline Phosphatase 69 U/L (35-105) 10/10/24 07:10 Creatine Kinase 38 U/L (26-192) 10/10/24 07:10 Total Protein 7.6 g/dL (6.6-8.7) 10/10/24 07:10 Albumin 4.4 g/dL (3.5-5.2) 10/10/24 07:10 Globulin 3.2 g/dL (1.3-4.6) 10/10/24 07:10 Urine Color Yellow (Yellow) 10/10/24 07:25 Urine Appearance Clear (CLEAR) 10/10/24 07:25 Urine pH 6.0 (5-7) 10/10/24 07:25 Ur Specific [place] 1.025 (1.005-1.030) 10/10/24 07:25 Urine Protein 2+ (Negative) A 10/10/24 07:25 Urine Glucose (UA) Negative (Normal) 10/10/24 07:25 Urine Ketones 2+ (Negative) H 10/10/24 07:25 Urine Blood Negative (Negative) 10/10/24 07:25 Urine Nitrate Negative (Negative) 10/10/24 07:25 Urine Bilirubin Negative (Negative) 10/10/24 07:25 Urine Urobilinogen 1.0 mg/dL (Negative) 10/10/24 07:25 Ur Leukocyte Esterase Negative (Negative) 10/10/24 07:25 Urine RBC None /hpf (0-2) 10/10/24 07:25 Urine WBC 0-4 /hpf (0-5) H 10/10/24 07:25 Ur Squamous Epith Cells None /hpf (0-5) 10/10/24 07:25 Amorphous Sediment Not Reportable 10/10/24 07:25 Urine Bacteria Trace /hpf (NONE) 10/10/24 07:25 All radiology interpretation(s) finalized by discharge Discharge Plan Discharge Patient Disposition: Placed in Observation Clinical Impression: Weakness, Back pain Coding Level of Care Code ED [employer] Supervisor for Cristhian Pressley
--- NOTE | 2024-10-10 07:02 | ECG_ITS ---
[facility] Test Date: 2024-10-10 Pat Name: Rosie Bowles Department: Room: Gender: Female [employer] Furn[employer] Operator: : [id number] Requested By: Harley Holt Order Number: [id number] Reading MD: Measurements Intervals [place] Rate: 88 P: 0 NM: 0 QRS: -81 QRSD: 93 T: -8 QT: 382 QTc: 463 Interpretive Statements ATRIAL FIBRILLATION INCOMPLETE RIGHT BUNDLE BRANCH BLOCK [90+ ms QRS DURATION, TERMINAL R IN V1/V2, 40+ ms S IN I/aVL/V4/V5/V6] LEFT ANTERIOR FASCICULAR BLOCK [QRS AXIS <= -45, QR IN I, RS IN II] POSSIBLE ANTERIOR MYOCARDIAL INFARCTION , PROBABLY OLD [30 ms Q WAVE IN V3/V4, OR R < 0.2 mV IN V4] [email or web address] [id number]
[2024-10-10 07:37] LABS: Alanine Aminotransferase 10 U/L (0-33); Albumin Level 4.4 g/dL (3.5-5.2); Alkaline Phosphatase 69 U/L (35-105); Anion Gap 20.3 (5-19); Aspartate Amino Transferase 20 U/L (0-32); Blood Urea Nitrogen 8 mg/dL (8-23); Calcium 9.5 mg/dL (8.5-10.5); Carbon Dioxide 22 mmol/L (22-29); Chloride 99 mmol/L (98-107); Globulin 3.2 g/dL (1.3-4.6); Glucose 120 mg/dL (65-115); Osmolality Calculated 286 mOsm/kg (285-295); Potassium 3.3 mmol/L (3.5-5.1); Sodium 138 mmol/L (136-145); Total Protein 7.6 g/dL (6.6-8.7)
[2024-10-10 07:38] LABS: Hematocrit 41.9 % (36-47); Hemoglobin 12.90 g/dL (11.27-16.99); Mean Corpuscular HGB Conc 30.8 g/dL (30-55); Mean Corpuscular Hemoglobin 24.1 pg (27-33); Mean Corpuscular Volume 78.3 fl (85-98); Nucleated Red Blood Cells % 0 %; Platelet Count 303 10^3/cmm (157-399); Red Blood Count 5.35 10^6/uL (3.85-5.65); White Blood Count 11.52 10^3/uL (3.29-11.43)
[2024-10-10 07:39] LABS: Glucose Urine UA Negative (Normal); Nitrate Urine Negative (Negative); Specific Gravity, Urine 1.025 (1.005-1.030)
--- NOTE | 2024-10-10 07:53 | CTR_ITS ---
PROCEDURE INFORMATION: Exam: CT Head Without Contrast Exam date and time: 10/10/2024 8:19 AM Age: 84 years old Clinical indication: Other: Weakness; Prior surgery; Surgery date: 6+ months; Surgery type: Hyst; HX of ovarian and uterus cancer TECHNIQUE: Imaging protocol: Computed tomography of the head without contrast. Total images: [id number] Radiation optimization: All CT scans at this facility use at least one of these dose optimization techniques: automated exposure control; mA and/or kV adjustment per patient size (includes targeted exams where dose is matched to clinical indication); or iterative reconstruction. COMPARISON: No relevant prior studies available. RADIATION DOSE METRICS: Total DLP (mGy-cm): 2193.55 FINDINGS: Brain: Global brain atrophy and chronic white matter ischemic changes are present. Senescent calcifications in the basal ganglia. Cerebral ventricles: Ventricles are appropriate in size for degree of atrophy. Paranasal sinuses: Visualized sinuses are unremarkable. No fluid levels. Mastoid air cells: Visualized mastoid air cells are well aerated. Bones: Unremarkable. No acute fracture. Soft tissues: Unremarkable. CT/CT head wo con* [id number] IMPRESSION: No acute intracranial abnormality.
[2024-10-10 08:17] LABS: Add Urine Microscopic? YES
--- NOTE | 2024-10-10 08:26 | ECG_ITS ---
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: : [id number] Requested By: Harley Holt Order Number: [id number] Reading MD: Measurements Intervals [place] Rate: 112 P: 0 LA: 0 QRS: -83 QRSD: 87 T: 97 QT: 321 QTc: 439 Interpretive Statements ATRIAL FIBRILLATION WITH RAPID VENTRICULAR RESPONSE WITH ABERRANT CONDUCTION OR VENTRICULAR PREMATURE COMPLEXES PATTERN CONSISTENT WITH PULMONARY DISEASE POSSIBLE RIGHT VENTRICULAR CONDUCTION DELAY [RSR (QR) IN V1/V2] LEFT ANTERIOR FASCICULAR BLOCK [QRS AXIS <= -45, QR IN I, RS IN II] ST DEVIATION AND MODERATE T-WAVE ABNORMALITY, CONSIDER LATERAL ISCHEMIA [-0.1+ mV T-WAVE IN I/aVL/V5/V6] No previous ECG available for comparison [email or web address]
[2024-10-10 08:29] LABS: Add RBC Morph Yes; Slide Review Slide Review Perform
[2024-10-10 08:30] LABS: Anisocytosis 2+; Ovalocytes 1+; Poikilocytosis 1+; RBC Morph Comp Yes; Tear Drop Cells Trace
--- NOTE | 2024-10-10 09:48 | CT_ITS ---
WS: [id number] CT of the lumbar spine, additional two-dimensional coronal and sagittal imaging was obtained. 10/10/2024 Clinical Data: pain Comparison: None. DLP: 842.[address] scans at [facility] use at least one of these dose optimization techniques: automated exposure control; mA and/or kV adjustment per patient size (includes targeted exams where dose is matched to clinical indication); or iterative reconstruction. Findings: There is a levoscoliosis. There is degenerative disc narrowing at L3- L4 and L4-L5. The disc space at L5-S1 is obliterated. There is osteoarthritis of all the lumbar vertebral bodies. There is facet joint arthritis at all levels. There is a minimal subluxation of 0.3 cm of L4 on L5. T12-L1: No canal stenosis, disc bulge or foraminal narrowing is seen. L1-L2: No canal stenosis, disc bulge or foraminal narrowing is seen. L2-L3: No canal stenosis, disc bulge or foraminal narrowing is seen. L3-L4: There is disc bulging and slight canal stenosis. No disc extrusion is seen. L4-L5: There is asymmetric disc bulging with narrowing of the foramina. No disc extrusion is seen. L5-S1: The disc is obliterated. CT/CT lumbar spine wo con* [id number] Impression: 1. Negative for compression fracture. 2. Osteoarthritis and levoscoliosis. 3. Degenerative disc narrowing at L3-L4 and L4-L5 with obliteration of the L5-S 1 disc. 4. Bulging discs at L3-L4 and L4-L5. 5. Minimal 0.3 cm subluxation of L4 on L5.
--- NOTE | 2024-10-10 09:59 | PC.PHAR ---
Pt requested that I verify her medications with [facility]. Pt did take all her medications yesterday, but nothing yet today. Verified with last fill date and day supply added in pharmacy notes.
[2024-10-10] MEDS: morphine 4 mg/mL SDV 1 mL 2 MG IVP (10:47)
--- NOTE | 2024-10-10 12:19 | PM.HP ---
Providers/Chief Complaint Primary Care Provider: Gavino Louis MD Chief Complaint: weakness History of Present Illness Rosie Bowles is a 84 year old female ith a history of pulmonary hypertension, atrial fibrillation, severe aortic stenosis, gastrointestinal bleed, mitral regurgitation, hypertension, and iron-deficiency anemia who was brought to the emergency department for generalized weakness and inability to get out of bed after missing her morning medications. Earlier that day the heart rate reached the 130s in atrial fibrillation with rapid ventricular response; it improved to 88 beats per minute after metoprolol was given. She denies fever, chills, vomiting, or diarrhea. Three weeks ago both knees buckled with an audible snap while moving from her office to the kitchen; since then back pain radiating down the leg has limited ambulation, consistent with sciatica. She requires assistance to transfer and has failed several attempts to mattress filling machine tender the ED. Review of laboratory data revealed hemoglobin 12.9 g/dL, sodium 138 mEq/L, potassium 3.3 mEq/L, creatinine 0.8 mg/dL, anion gap 20.3, and unremarkable urinalysis. Chest x-ray and head CT showed no acute findings; lumbar CT demonstrated marked degenerative changes with bulging discs at L3-4 and L4-5 and mild L4?L5 subluxation. She reports no smoking, alcohol, or illicit drug use. Discussion focused on possible nursing-home rehabilitation versus hospice should weakness progress, as well as prior discussions with cardiology about transcatheter aortic valve replacement (TAVR), which she has so far declined. Review of Systems Const: Reports: other (Gen weakness); Denies: fever(s), chills, body aches or malaise ENMT: Denies: throat pain Card: Denies: chest pain, edema, pre-syncope or dyspnea on exertion Resp: Denies: dyspnea, productive cough, change in phlegm color or hemoptysis GI: Denies: abdominal pain, nausea, vomiting, diarrhea, constipation, hematochezia or melena : Denies: flank pain, urinary frequency or hematuria Musc: Denies: back pain, joint swelling or joint redness Skin/Breast: Denies: rash or new lesions Neuro: Denies: headache(s) or confusion Medications/Allergies Home Medications ?Medication ?Instructions ?Recorded ?Confirmed ?Last Taken ?Type multivitamin 1 tab PO DAILY 09/24/22 10/10/2425 History ferrous sulfate 325 mg (65 mg 325 mg PO EVERY OTHER DAY #90 tabs 09/26/22 10/10/24 10/09/24 Rx iron) tablet (iron) apixaban 5 mg tablet (Eliquis) 5 mg PO BID 11/03/22 10/10/24 10/09/24 History dapagliflozin propanediol 10 mg 10 mg PO DAILY #30 tabs 09/13/24 10/10/24 10/09/24 Rx tablet (Farxiga) furosemide 20 mg tablet 20 mg PO QAM 30 days #30 tabs 09/13/24 10/10/24 10/09/24 Rx metoprolol tartrate 50 mg tablet 50 mg PO BID #180 tabs 09/13/24 10/10/24 10/09/24 Rx pantoprazole 40 mg tablet,delayed 40 mg PO QAM #60 tabs 09/13/24 10/10/24 10/09/24 Rx release (Protonix) diclofenac sodium 75 mg 75 mg PO BID PRN Pain 10/10/24 10/10/24 10/09/24 History tablet,delayed release potassium chloride 20 mEq 20 meq PO DAILY 10/10/24 10/10/24 10/09/24 History tablet,extended release triamcinolone acetonide 0.1 % 1 applic topical BID 10/10/24 10/10/24 10/09/24 History topical cream Allergies Allergy/AdvReac Type Severity Reaction Status Date / Time Sulfa (Sulfonamide Allergy ALGY-Difficulty Verified 07/11/24 10:12 Antibiotics) Breathing PFSH Acute PFSH: Medical History Pulmonary hypertension Anemia Aortic stenosis, severe Atrial fibrillation GI bleed Lower gastrointestinal hemorrhage Mitral regurgitation Aortic valve stenosis, nonrheumatic Hypertension Hip pain Atrial fibrillation with RVR Surgical History H/O endoscopy Found to have significant gastritis, pyloric ulcer-10/15 Family History Brother Cancer Social History Smoking and tobacco/nicotine status: never used tobacco/nicotine Alcohol intake: never Substance/Drug Use: never Vitals/I&O/Wt Last Vital Signs Temp 97.8 F 10/10/24 06:59 Pulse 88 10/10/24 10:47 Resp 18 10/10/24 11:00 BP 160/96 10/10/24 11:00 Pulse Ox 94 10/10/24 09:06 O2 Del Method Room Air 10/10/24 09:06 Physical Exam Const: COMMON NORMALS: patient oriented x3 and alert GENERAL APPEARANCE: cooperative ORIENTATION/CONSCIOUSNESS: Yes awake HENMT: COMMON NORMALS: oropharynx normal Neck/C-Spine: COMMON NORMALS: no JVD Resp: COMMON NORMALS: normal respiratory effort and clear to auscultation bilaterally AUSCULTATION: clear to auscultation bilaterally Cardio: COMMON NORMALS: no JVD, regular rhythm, S1 normal heart sound present, S2 normal heart sound present and No murmurs present (Cardio) RHYTHM: regular rhythm HEART SOUNDS: S1 normal heart sound present and S2 normal heart sound present GI: COMMON NORMALS: Normal to inspection, nondistended, normoactive bowel sounds present, Soft to palpation and non-tender PALPATION: Yes Soft to palpation Extremity: COMMON NORMALS: no joint enlargement and no pedal edema Neuro: COMMON NORMALS: patient oriented x3 and moves all extremities SENSORIUM/ORIENTATION: Yes alert Skin: COMMON NORMALS: no rashes or lesions noted GENERAL SKIN EXAM: no rashes or lesions noted Data 10/10/24 07:10 10/10/24 07:10 A&P Assessment and plan 1. Generalized weakness: Generalized weakness and functional decline : Progressive inability to stand or ambulate; no infectious signs; labs largely unremarkable; lumbar CT shows degenerative changes likely contributing. Differential includes deconditioning from back pain/sciatica, worsening aortic stenosis with orthostatic hypotension, electrolyte/thyroid abnormalities, or progression of chronic cardiopulmonary disease. Reviewed vitals, CBC, CMP, CK, UA, chest x-ray, head CT, CT lumbar spine, EKG, ED provider note, discussed with ED provider. - Check TSH and magnesium - Check orthostatic blood pressures (sitting and standing) - Obtain physical therapy evaluation - Consult case management for nursing-home rehabilitation placement - Consult case management to finalize durable power of perishable freight inspector paperwork with son 2. Aortic stenosis, severe: Known [id number] disease with worsening symptoms discussed; reported progressive severe recently, patient currently declines valve replacement despite counseling on risks/benefits. Obtain orthostatics. Monitor blood pressures with risk of hypotension. 3. Back pain: Lumbar degenerative disease with sciatica : CT shows bulging discs at L3-4 and L4-5 with mild subluxation; correlates with back and leg pain contributing to mobility limitations. Reviewed CT lumbar spine, discussed with her. - PT assessment - Case management consultation for rehabilitation options. She has previously had good results with [facility] and would like to go there again if possible. Acetaminophen as needed for pain. Diclofenac as needed. IV morphine for severe breakthrough. 4. Atrial fibrillation with RVR: Atrial fibrillation : Rate previously up to 130s in ED, improved to 88 bpm after metoprolol; on chronic apixaban for anticoagulation. Continue metoprolol 50 mg twice daily Continue Eliquis Plan: Hypertension : Chronic; noted to be a little bit on the higher side today; on metoprolol and furosemide at home. Iron deficiency anemia : History of severe iron-deficiency anemia requiring transfusion during August hospitalization; current hemoglobin 12.9 g/dL. Follow-up : Awaiting bed availability and disposition; options include prison facility rehabilitation, long-term placement, or hospice if functional status declines. Case management consultation - Pulmonary hypertension - Mitral regurgitation - Hypertension: cont metoprolol - Iron-deficiency anemia: cont iron - Hx Gastrointestinal bleed: cont pantoprazole PDMP PDMP Reviewed: Not Reviewed Attestations Medical Necessity Statement*: Place in observation for additional assessment management of generalized weakness with difficulty getting up and walking, living by herself, functional decline, in a lady with degenerative disease of the spine, possible severe aortic stenosis, additional comorbidities as above. and High MDM includes amount and/or complexity of data reviewed/ordered [ resulted lab(s)/test(s), ordered lab(s)/test(s) and other healthcare professional discussion] and described risk of complication, morbidity or mortality of management as documented Diagnoses Generalized weakness R53.1 Aortic stenosis, severe I35.0 Back pain M54.9 Atrial fibrillation with RVR I48.91
[2024-10-10 14:49] LABS: Magnesium 2.4 mg/dL (1.7-2.3); Thyroid Stimulating Hormone 4.41 uIU/mL (0.27-4.20)
[2024-10-10 16:08] LABS: Free T4 Free Thyroxine 1.48 ng/dL (0.82-1.77)
[2024-10-11] VITALS: BP 149/86; PULSE 107; RESP 16; TEMP 36.6; O2SAT 96
[2024-10-11 01:55] VITALS: RESP 18
[2024-10-11] MEDS: morphine 4 mg/mL SDV 1 mL 2 MG IVP (01:55)
[2024-10-11 04:00] VITALS: BP 128/70; PULSE 57; RESP 17; TEMP 36.6; O2SAT 98
[2024-10-11 06:08] LABS: Blood Urea Nitrogen 14 mg/dL (8-23); Calcium 9.3 mg/dL (8.5-10.5); Carbon Dioxide 25 mmol/L (22-29); Chloride 98 mmol/L (98-107); Creatinine Clr Calc Pharmacy 41.6197; Glucose 106 mg/dL (65-115); Osmolality Calculated 287 mOsm/kg (285-295); Sodium 138 mmol/L (136-145)
[2024-10-11 06:16] LABS: Anion Gap 18.3 (5-19); Potassium 3.3 mmol/L (3.5-5.1)
[2024-10-11 07:22] VITALS: BP 129/75; PULSE 97; RESP 17; TEMP 36.7; O2SAT 95
--- NOTE | 2024-10-11 08:14 | PM.DCS ---
Discharge Providers Date of Admission: 10/10/24 13:45 Date of Discharge: October 11, 2024 Attending Provider at Admission: James Novoa Attending Provider at Discharge: James Novoa Primary Care Provider: Gavino Louis MD Diagnoses at Discharge Discharge Diagnosis 1. Generalized weakness: 2. Aortic stenosis, severe: 3. Back pain: 4. Atrial fibrillation with RVR: Reason for Visit Reason for Visit: weakness Brief History: Rosie Bowles is a 84 year old female ith a history of pulmonary hypertension, atrial fibrillation, severe aortic stenosis, gastrointestinal bleed, mitral regurgitation, hypertension, and iron-deficiency anemia who was brought to the emergency department for generalized weakness and inability to get out of bed after missing her morning medications. Earlier that day the heart rate reached the 130s in atrial fibrillation with rapid ventricular response; it improved to 88 beats per minute after metoprolol was given. She denies fever, chills, vomiting, or diarrhea. Three weeks ago both knees buckled with an audible snap while moving from her office to the kitchen; since then back pain radiating down the leg has limited ambulation, consistent with sciatica. She requires assistance to transfer and has failed several attempts to fresh work inspector the ED. Review of laboratory data revealed hemoglobin 12.9 g/dL, sodium 138 mEq/L, potassium 3.3 mEq/L, creatinine 0.8 mg/dL, anion gap 20.3, and unremarkable urinalysis. Chest x-ray and head CT showed no acute findings; lumbar CT demonstrated marked degenerative changes with bulging discs at L3-4 and L4-5 and mild L4?L5 subluxation. She reports no smoking, alcohol, or illicit drug use. Discussion focused on possible nursing-home rehabilitation versus hospice should weakness progress, as well as prior discussions with cardiology about transcatheter aortic valve replacement (TAVR), which she has so far declined. Hospital Course Hospital Course Potassium was replaced with. Magnesium was checked and was not low. TSH was mildly elevated 4.41 but with normal free T4. Consider follow-up in 3 to 4 weeks. Orthostatics were checked and noted some moderate to static hypotension lying down 119/83 sitting up 128/84 standing 105/64. Maintain orthostatic precautions. Goals of care and number of postdischarge options were considered and discussed with her. She had considered and has not been interested in proceeding with aortic valve repair, understanding that this is likely a progressive condition that may lead to further deterioration including heart failure, functional decline, possibly leading to her eventual demise. This could be contributing to her generalized weakness, in addition with noted degenerative changes of the lumbosacral spine noted on CT scan. Heart rates with initial brief atrial fibrillation with RVR remained controlled. She is maintaining blood counts with iron deficiency anemia for which she continues with iron supplementation. On further consideration given her goals of care and wanting to focus on comfort, not wanting to have more discomfort/pain, procedures, etc., she has decided to proceed with hospice care at nursing facility and worked with case management on arrangements. Physical Exam Narrative: Sitting up at bedside, having breakfast. Reports she is feeling well today. Const: COMMON NORMALS: patient oriented x3 and alert GENERAL APPEARANCE: cooperative ORIENTATION/CONSCIOUSNESS: Yes awake HENMT: COMMON NORMALS: oropharynx normal Neck/C-Spine: COMMON NORMALS: no JVD Resp: COMMON NORMALS: normal respiratory effort and clear to auscultation bilaterally AUSCULTATION: clear to auscultation bilaterally Cardio: COMMON NORMALS: no JVD, regular rhythm, S1 normal heart sound present, S2 normal heart sound present and No murmurs present (Cardio) RHYTHM: regular rhythm HEART SOUNDS: S1 normal heart sound present and S2 normal heart sound present GI: COMMON NORMALS: Normal to inspection, nondistended, normoactive bowel sounds present, Soft to palpation and non-tender PALPATION: Yes Soft to palpation Extremity: COMMON NORMALS: no joint enlargement and no pedal edema Neuro: COMMON NORMALS: patient oriented x3 and moves all extremities SENSORIUM/ORIENTATION: Yes alert Skin: COMMON NORMALS: no rashes or lesions noted GENERAL SKIN EXAM: no rashes or lesions noted Discharge Data Studies Completed and Pending Completed Studies During Hospitalization Category Date Time Status CT head wo con* [id number] Stat Cat Scan 10/10/24 07:[address] lumbar spine wo con* [id number] Stat Cat Scan 10/10/24 09:48 Completed XR chest 1V portable [id number] Stat Exams 10/10/24 06:59 Completed Radiology Impressions Chest X-Ray 10/10/24 06:59 IMPRESSION: No acute findings. Head CT 10/10/24 07:53 IMPRESSION: No acute intracranial abnormality. Lumbar Spine CT 10/10/24 09:48 Impression: 1. Negative for compression fracture. 2. Osteoarthritis and levoscoliosis. 3. Degenerative disc narrowing at L3-L4 and L4-L5 with obliteration of the L5-S1 disc. 4. Bulging discs at L3-L4 and L4-L5. 5. Minimal 0.3 cm subluxation of L4 on L5. Laboratory Results WBC 11.52 10^3/uL (3.29-11.43) H 10/10/24 07:10 RBC 5.35 10^6/uL (3.85-5.65) 10/10/24 07:10 Hgb 12.90 g/dL (11.27-16.99) 10/10/24 07:10 Hct 41.9 % (36-47) 10/10/24 07:10 MCV 78.3 fl (85-98) L 10/10/24 07:10 MCH 24.1 pg (27-33) L 10/10/24 07:10 MCHC 30.8 g/dL (30-55) 10/10/24 07:10 RDW Not Reportable 10/10/24 07:10 Plt Count 303 10^3/cmm (157-399) 10/10/24 07:10 MPV 10.3 fL (7.4-10.4) 10/10/24 07:10 Neut % (Auto) 69.8 % 10/10/24 07:10 Lymph % (Auto) 16.5 % 10/10/24 07:10 Rolette % (Auto) 10.7 % 10/10/24 07:10 Eos % (Auto) 2.1 % 10/10/24 07:10 Baso % (Auto) 0.6 % 10/10/24 07:10 Neut # (Auto) 8.05 10^3/uL (1.8-7.7) H 10/10/24 07:10 Lymph # (Auto) 1.9 10^3/uL (0.8-4.8) 10/10/24 07:10 Rolette # (Auto) 1.2 10^3/uL (0.2-0.9) H 10/10/24 07:10 Eos # (Auto) 0.2 10^3/uL (0.0-0.8) 10/10/24 07:10 Baso # (Auto) 0.1 10^3/uL (0.0-0.1) 10/10/24 07:10 Nucleated RBC % (auto) 0 % 10/10/24 07:10 Nucleated RBCs # 0.0 /100WBC 10/10/24 07:10 Dimorphic RBCs 2+ H 10/10/24 07:10 Poikilocytosis 1+ H 10/10/24 07:10 Anisocytosis 2+ H 10/10/24 07:10 Tear Drop Cells Trace 10/10/24 07:10 Ovalocytes 1+ H 10/10/24 07:10 Sodium 138 mmol/L (136-145) 10/11/24 05:18 Potassium 3.3 mmol/L (3.5-5.1) L 10/11/24 05:18 Chloride 98 mmol/L (98-107) 10/11/24 05:18 Carbon Dioxide 25 mmol/L (22-29) 10/11/24 05:18 Anion Gap 18.3 (5-19) 10/11/24 05:18 BUN 14 mg/dL (8-23) 10/11/24 05:18 Creatinine 1.0 mg/dL (0.5-0.9) H 10/11/24 05:18 GFR Calculation Not Reportable 10/11/24 05:18 Glucose 106 mg/dL (65-115) 10/11/24 05:18 Calculated Osmolality 287 mOsm/kg (285-295) 10/11/24 05:18 Calcium 9.3 mg/dL (8.5-10.5) 10/11/24 05:18 Magnesium 2.4 mg/dL (1.7-2.3) H 10/10/24 07:10 Total Bilirubin 1.5 mg/dL (0.15-1.2) H 10/10/24 07:10 AST 20 U/L (0-32) 10/10/24 07:10 ALT 10 U/L (0-33) 10/10/24 07:10 Alkaline Phosphatase 69 U/L (35-105) 10/10/24 07:10 Creatine Kinase 38 U/L (26-192) 10/10/24 07:10 Total Protein 7.6 g/dL (6.6-8.7) 10/10/24 07:10 Albumin 4.4 g/dL (3.5-5.2) 10/10/24 07:10 Globulin 3.2 g/dL (1.3-4.6) 10/10/24 07:10 TSH 4.41 uIU/mL (0.27-4.20) H 10/10/24 07:10 Free T4 1.48 ng/dL (0.82-1.77) 10/10/24 07:10 Urine Color Yellow (Yellow) 10/10/24 07:25 Urine Appearance Clear (CLEAR) 10/10/24 07:25 Urine pH 6.0 (5-7) 10/10/24 07:25 Ur Specific [place] 1.025 (1.005-1.030) 10/10/24 07:25 Urine Protein 2+ (Negative) A 10/10/24 07:25 Urine Glucose (UA) Negative (Normal) 10/10/24 07:25 Urine Ketones 2+ (Negative) H 10/10/24 07:25 Urine Blood Negative (Negative) 10/10/24 07:25 Urine Nitrate Negative (Negative) 10/10/24 07:25 Urine Bilirubin Negative (Negative) 10/10/24 07:25 Urine Urobilinogen 1.0 mg/dL (Negative) 10/10/24 07:25 Ur Leukocyte Esterase Negative (Negative) 10/10/24 07:25 Urine RBC None /hpf (0-2) 10/10/24 07:25 Urine WBC 0-4 /hpf (0-5) H 10/10/24 07:25 Ur Squamous Epith Cells None /hpf (0-5) 10/10/24 07:25 Amorphous Sediment Not Reportable 10/10/24 07:25 Urine Bacteria Trace /hpf (NONE) 10/10/24 07:25 Vitals Last Vital Signs Temp 98.1 F 10/11/24 07:22 Pulse 97 10/11/24 07:22 Resp 17 10/11/24 07:22 BP 129/75 10/11/24 07:22 Pulse Ox 95 10/11/24 07:22 O2 Del Method Room Air 10/11/24 07:22 Discharge Plan Discharge Patient Disposition: Hospice - Medical Facility Condition: Stable Prescriptions: Continued Eliquis 5 mg tablet 5 mg PO BID triamcinolone acetonide 0.1 % cream 1 applic TOPICAL BID diclofenac sodium 75 mg tablet,delayed release (DR/EC) 75 mg PO BID PRN (Reason: Pain) potassium chloride 20 mEq tablet extended release 20 meq PO DAILY multivitamin Tablet 1 tab PO DAILY ferrous sulfate [iron] 325 mg (65 mg iron) tablet 325 mg PO EVERY OTHER DAY Qty: 90 0RF metoprolol tartrate 50 mg tablet 50 mg PO BID Qty: 180 3RF furosemide 20 mg tablet 20 mg PO QAM 30 Days Qty: 30 0RF pantoprazole [Protonix] 40 mg tablet,delayed release (DR/EC) 40 mg PO QAM Qty: 60 0RF dapagliflozin propanediol [Farxiga] 10 mg tablet 10 mg PO DAILY Qty: 30 2RF Discharge Order = DC NOW: Discharge Order (Routine); Ordered 10/11/24 Ordered By: James Novoa Referrals: [facility] [Outside] [facility] [Outside] Gavino Louis MD [Primary Care Provider, Family Practice] - 1 week Patient Instructions: Hospice Care (GEN), Weakness (DC), Chronic Back Pain (DC), Opioid Safety, Pain Management, Patient Portal & Nory Instructions Activity Restrictions/Additional Instructions: Follow-up with your primary provider for reassessment while on hospice, continue to focus on comfort and continued consideration of chronic conditions including aortic stenosis, back pain, with degenerative spine disease, with L3-5 degenerative disc narrowing, disc bulging L3-5. Maintain orthostatic precautions with moderate orthostatic hypotension. Discharge Attestations Time Spent in Discharge Care*: greater than 30 min Status at Discharge: Cognitive status at discharge: cognitively intact, Behavioral status at discharge: cooperative, Quality Metrics Clinical Quality Measures [ No reported AMI, CVA or VTE this stay] Coding Level of Care Code 21218 Total time (in minutes) for Discharge: 35 Diagnoses Generalized weakness R53.1 Aortic stenosis, severe I35.0 Back pain M54.9 Atrial fibrillation with RVR I48.91
--- NOTE | 2024-10-11 09:28 | PC.NURSE ---
This nurse called report to ISMA Lebron at [facility] at 9:25. Pt awaiting ride from [facility].
[2024-10-11 09:37] LABS: SARS Covid-2 Antigen Negative (Negative)
--- NOTE | 2024-10-11 10:03 | PC.CHAP ---
Pastoral Care Encounter/Spiritual Assessment Type of Contact [] Declined senior ui web developer visit [] Patient/Family/Request visit [] Outpatient visit [] Follow-up visit [] Physician referral [] Code/Alert [] Routine visit [] Staff referral [] Actively dying [] Patient sleeping [] Family support [] [] Out of room [] Palliative care [] [x] Receiving care in room [] Pre-surgical visit [] Trauma [] Long length of stay [] ICU visit [] Other: Relational/Emotional Strength [] Patient feels connected with others/family/visitors/staff [] Distress [] Loneliness/isolation [] Abandonment Spirituality of Patient [] Person of Nanette [] Attends Gnosticist of their Nanette [] Believes in Prayer [] Reads Bible or Latter Day materials [] There are Spiritual issues to be addressed Casino Floor Person Interventions [] Prayer [] Active listening [] Non-anxious presence [] Spiritual/emotional support [] Crisis/trauma care [] Spiritual counseling [] Bereavement support [] Provided bereavement packet [] Provided Bible/devotional materials [] Provided toy/stuffed animal, coloring book to patient or family member [] Provided Communion [] Anointing/Shobonier [] Salvation [] Completed spiritual assessment [] Other: Impact on Illness or Injury [] Angry [] Fearful [] Anxious [] Often cries [] Exhaustion [] Unable to work [] Unable to attend adventism [] Unable to walk/stand [] Unable to read [] Unable to drive [] Unable to eat/drink [] Unable to sleep [] Unable to be with family [] Patient intubated [] Other: Summary Time spent with patient
[2024-10-11 10:25] VITALS: BP 125/72; PULSE 98; O2SAT 95
== END 2024-10-11 10:26 | disposition hospice, inpatient (51) ==
LOC: ER 09:50 → MEDSURG 15:00
PROVIDERS: Admitting Provider Internal Medicine; Emergency Provider Family Medicine; PCP Family Medicine; Visit Provider Internal Medicine
DX: R53.1 Weakness (principal); I35.0 Nonrheumatic aortic (valve) stenosis; I48.91 Unspecified atrial fibrillation; M54.9 Dorsalgia, unspecified; K21.9 Gastro-esophageal reflux disease without esophagitis; Z79.01 Long term (current) use of anticoagulants; I27.20 Pulmonary hypertension, unspecified; I10 Essential (primary) hypertension; D50.9 Iron deficiency anemia, unspecified; I34.0 Nonrheumatic mitral (valve) insufficiency
CPT/HCPCS: 36415; 51798; 70450; 71045; 72131; 80048; 80053; 81001; 82550; 83735; 84439; 84443; 85025; 87426; 93005; 97161; G0378; J1885; J2270; J9999